=== PATIENT | female | born 1975 | race Caucasian/White ===

== ENCOUNTER 2017-09-24 22:33 | Emergency (ER) | payer BC, SELFPAY ==
[2017-09-24 22:34] VITALS: BP 140/84; PULSE 79; RESP 16; TEMP 36.6; O2SAT 98; BMI 95.7
--- NOTE | 2017-09-24 23:44 | EKG12_ITS ---
Test Reason : SOB Blood Pressure : / mmHG Vent. Rate : 089 BPM Atrial Rate : 089 BPM P-R Int : 150 ms QRS Dur : 072 ms QT Int : 366 ms P-R-T Axes : 044 040 017 degrees QTc Int : 445 ms Normal sinus rhythm Normal ECG Confirmed by KINGSTON WAGONER MD ([id number]), editor house organ KHURRAM LOPEZ ([id number] on 09/29/2017 2:24:51 PM Referred By: CORDELIA Confirmed By:KINGSTON WAGONER MD
--- NOTE | 2017-09-24 23:45 | ED.VISSUMM ---
- ER Visit Summary Date of Service: 09/24/17 Chief Complaint: Lightheaded, flushing History of Present Illness: The patient is a 42 F sudden lightheadedness and flushing of the face with ringing in the ears while reading a book this evening. No syncopal episodes. No recent illness or cough. No syncopal episodes. 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 Took an Imodium. No urinary symptoms. No diarrhea since 2. She did drink fluids throughout the day. Spouse states she was significantly flushed in the face and was sweaty. She denies any chest pains or palpitations. No heart racing. No previous similar symptoms in the past. History of IBS, asthma, GERD. Denies any abdominal pain. No nausea or vomiting. She does have heavy menstrual periods. No GI bleed symptoms. Denies alcohol, tobacco, or illicit drug use. Physical Examination: General: Alert and oriented ?3, no acute distress HEENT: Normocephalic, atraumatic. Moist mucosa membranes. TMs normal bilaterally. Neck: supple, nontender. Cardiovascular: Regular rate and rhythm, no murmurs Respiratory: Normal breath sounds, symmetric, no distress Abdomen: Soft, nontender, nondistended Extremities: Nontender, no edema, pulses intact ?4 Neuro: no focal neurological deficits. Test Results: EKG sinus rate of 89, no ST changes. Isolated T-wave inversion in leads III. QTc 445. Hemoglobin 13, potassium 3.5. Creatinine 0.91. HCG negative. UA leukocytes. Emergency Department Course and Treatment: Patient symptoms improving on the ED. EKG normal. Basic labs normal. HCG negative. UA with trace leukocytes. She is asymptomatic. Ambulated with no difficulties. During monitoring had a rash to the scalp lining in the forehead states is itchy. There is no trouble breathing or lip swelling. She is given Benadryl prior to discharge. Discussed near syncopal symptoms at this time. She continue oral hydration. She will monitor symptoms. There is no chest pains or palpitations. She will need to see her PCP for further testing if symptoms persist. Discuss of any worsening symptoms to return for reevaluation. Patient understands and agrees with plan. Treatment Plan: [] Disposition: Discharge Impression: 1. Near syncope 2. Dermatitis This note was generated with [employer] software. It may contain incorrect words, spelling, and punctuation that were not noted in review of the chart prior to signing ED Disposition - Plan for ED Patient: Disposition: Home or Assisted Living Chief Complaint: General Illness Diagnosis: Near syncope, Dermatitis Referrals: Nabil Rodgers III, MD [Primary Care Provider] - 3-5 Days Additional Instructions: Benadryl every 6 hours as needed for itching of rash
[2017-09-25 00:09] LABS: Red Blood Cells-Urine 0 SEEN /hpf (0-5); Squamous Epithelial Cells - UA 0 SEEN /hpf (5-10)
[2017-09-25 00:10] LABS: Absolute Lymphocyte Count 1.57 X10^3/ul (0.83-4.51); Basophil# 0.01 X10^3/uL; Basophil% 0.1 % (0-1); Eosinophil# 0.04 X10^3/uL; Eosinophils% 0.3 % (0-5); Hematocrit 38.8 % (37-47); Hemoglobin 13.1 g/dl (12.0-15.0); Lymphocyte # 1.57 X10^3/ul (4.0); Lymphocyte % 12.6 % (19-41); Mean Corp Hgb Conc 33.8 g/gl (32-36); Mean Corpuscular Hgb 29.8 pg (27.0-32.0); Mean Corpuscular Volume 88.4 fL (81-99); Mean Platelet Vol. 8.9 fl (6.2-12.0); Monocyte% 6.4 % (0-10); Neutrophil # 10.02 X10^3/uL (2.7-7.7); Neutrophil % 80.4 % (47-70); Platelet Count 255 K/mm3 (150-450); RBC Distribution Width CV 12.7 % (11.6-14.6); RBC Distribution Width SD 40.8 fl (35.1-43.9); Red Blood Count 4.39 M/mm3 (4.2-5.4); White Blood Count 12.5 K/mm3 (4.4-11.0)
[2017-09-25 00:11] LABS: Color, Urine Yellow (Yellow); Glucose, Dipstick Normal (Normal); Ketone-Dipstick Negative (Negative); Leukocyte Esterase-Dipstick 25 /ul (Negative); Nitrite-Dipstick Negative (Negative); Occult Blood-Urine Negative /ul (Negative); Protein-Dipstick 15 mg/dl (Negative); Urine Bilirubin Dipstick Negative (Negative); Urine Clarity Clear (Clear); Urine Urobilinogen Normal (Normal)
[2017-09-25 00:11] LABS: POSITIVE COUNT NO; POSITIVE DIFFERENTIAL NO; POSITIVE MORPHOLOGY NO
[2017-09-25 00:18] LABS: Anion Gap 7 (5-15); BUN 11 mg/dL (7-18); BUN/Creat Ratio 12.1 RATIO (10-20); Calcium,Total 8.3 mg/dL (8.5-10.1); Chloride 109 mmol/L (98-107); Creatinine, Serum 0.91 mg/dL (0.55-1.02); EST Glomerular Filtration Rate 72 mL/min (>60); Est Glom Filt Rate - Afr Amer 87 mL/min (>60); Estimated Creatinine Clearance 60.15 ml/min; Glucose 130 mg/dL (74-106); Potassium 3.5 mmol/L (3.5-5.1); Sodium Level 142 mmol/L (136-145)
[2017-09-25 00:23] LABS: Bacteria RARE /hpf (None Seen); Mucous, Urine 1+ /hpf (<or=2+); White Blood Cells 0-5 SEEN /hpf (0-5)
[2017-09-25 00:24] LABS: Internal QC Validated? YES +Cl - CLEAR BKGD; Pregnancy, Urine Negative Negative
[2017-09-25 01:15] VITALS: BP 123/78; PULSE 92; RESP 16; O2SAT 94
[2017-09-25 01:41] VITALS: BP 126/78; PULSE 94; RESP 17; O2SAT 95
[2017-09-25] MEDS: DiphenhydrAMINE 50 MG/ML Syringe 25 MG IV (01:52)
[2017-09-25 02:01] VITALS: BP 125/79; PULSE 90; RESP 17; O2SAT 95
== END 2017-09-25 02:29 | disposition home or self-care (01) ==
PROVIDERS: Emergency Provider Emergency Medicine; Family Provider Family Medicine; PCP Family Medicine
DX: R55 Syncope and collapse (principal); L30.9 Dermatitis, unspecified; K58.9 Irritable bowel syndrome, unspecified; J45.909 Unspecified asthma, uncomplicated; K21.9 Gastro-esophageal reflux disease without esophagitis
CPT/HCPCS: 80048; 81001; 81025; 85025; 93005; 96361; 96374; 99285; J7030; J7040; A4216

== ENCOUNTER → 2018-08-13 18:00 | Outpatient (CLI) | payer OTHER, SELFPAY ==
--- NOTE | 2018-08-13 18:05 | CT_ITS ---
STUDY: CT SOFT TISSUE NECK WITHOUT CONTRAST REASON FOR EXAM: Female, 42 years old. Dyspnea family history thyroid cancer RADIATION DOSAGE (If Supplied By Facility): CTDIvol = ( 21.98 ) mGy, DLP = ( 598.29 ) mGycm TECHNIQUE: The patient was scanned in a multi-detector CT scanner. High resolution transaxial imaging was performed without the administration of intravenous contrast material. Sagittal and coronal images were reconstructed. Individualized dose optimization techniques were used for this CT. COMPARISON: None. FINDINGS: Normal bilateral parotid glands. Normal bilateral mold maker plastic molds spaces. Normal bilateral parapharyngeal spaces. Normal bilateral carotid spaces. Bilateral hearing devices in the external auditory canals. Normal bilateral sublingual and submandibular glands and spaces. Normal visualized nasopharynx. Normal retropharyngeal space. Normal perivertebral space. Normal visualized bilateral faucial tonsils. The visualized tongue, tongue base and oropharynx are normal. There are a few nonspecific subcentimeter cervical lymph nodes. Normal epiglottis, bilateral vallecula and hypopharynx. The pre-epiglottic and paraglottic adipose spaces are normal. Normal visualized bilateral piriform sinuses, aryepiglottic folds, vocal cords, and arytenoid-cricoid articulations. Normal subglottic trachea. There is a low attenuating nodule in the anterior aspect of the right thyroid measuring 1.8 x 1.9 cm. There is a low attenuation measuring 9.3 mm. Normal visualized pulmonary apices. There is a cyst sphenoid mucosal retention cyst measuring 2.0 x 1.4 cm. There is multilevel spondylosis. No significant C4 C5 C6 and C7. There is multilevel posterior osteophyte formation. There is no significant neural foramina narrowing there is minimal central stenosis. CT/Soft Tissue Neck without Contr IMPRESSION: There are bilateral thyroid nodules demonstrated. There is a low attenuating nodule in the anterior aspect of the right thyroid measuring 1.8 x 1.9 cm. There is a low attenuation measuring 9.3 mm Recommend follow-up thyroid ultrasound and laboratory values. Degenerative changes cervical spine. Area of chronic appearing sphenoid sinus mucosal retention cyst. Electronically Signed: Lisa Sandy MD at 19:59 EST Tel , Service support ,
== END ==
PROVIDERS: Family Provider Family Medicine; PCP Family Medicine; Referring Provider Internal Medicine Pulmonary Disease; Visit Provider Internal Medicine Pulmonary Disease
DX: J38.3 Other diseases of vocal cords (principal); R13.10 Dysphagia, unspecified
CPT/HCPCS: 70490

== ENCOUNTER → 2018-10-13 | Outpatient (CLI) | payer OTHER, SELFPAY ==
--- NOTE | 2018-10-12 15:00 | ASPS_PTH ---
PATIENT: FLORENTINOSeptember LOC: [facility] U#:[id number] AGE/SX: 43/F ROOM: RE10/13/[address]: Dr. Harrison Rodgers MD : 1975 BED: DIS: 10/13/2018 SPEC #: [id number] RECD: 10/13/18 15:07 STATUS: LILLY JACKY #: [id number] AL: 10/12/18 15:[address]: Harrison Rodgers DEPT: CYTOLOGY RECD BY: Slade Alfaro ENTERED: 10/14/18 11:07 SP TYPE: ASPIRATION OTHR DR: Dr. Nabil Rodgers III, MD Tissues: A - Thyroid gland, NOS B - Thyroid gland, NOS Procedures: Special Stain Group II Cytology Other HEADER OPERATION: Bilateral thyroid FNA PRE-OP DIAGNOSIS: Bilateral thyroid nodules TISSUE SUBMITTED: A - Right thyroid slides x6, B - Left thyroid slides x6 DIAGNOSIS CYTOLOGY A. Right thyroid nodule, FNA (smears): Cellular smear consistent with benign follicular nodule. Adequate for evaluation. See comment. B. Left thyroid nodule, FNA (smears): Consistent with benign follicular nodule. Adequate for evaluation. SJ:rg 10/15/18 COMMENT A. The findings may represent adenomatoid nodule. Correlation with clinical, radiologic findings and appropriate follow up are necessary. CYTOLOGY STUDY Slides are reviewed. CYTOLOGY GROSS A - Received are six smears labeled with the patient's name and designated per the requisition as right thyroid. Submitted for staining. B - Received are six smears labeled with the patient's name and designated per the requisition as left thyroid. Submitted for staining. / 10/14/18 TC:5 CPT: 71938 x2
[2018-10-12 15:04] VITALS: BMI 95.7
== END | disposition home or self-care (01) ==
LOC: LABSPEC 15:15
PROVIDERS: Family Provider Family Medicine; PCP Family Medicine; Referring Provider Surgery; Visit Provider Surgery
DX: E04.2 Nontoxic multinodular goiter (principal)
CPT/HCPCS: 88161; 88313

== ENCOUNTER → 2019-10-24 15:36 | Outpatient (CLI) | payer OTHER, SELFPAY ==
[2018-10-12 15:04] VITALS: BMI 95.7
--- NOTE | 2019-10-24 15:38 | US_ITS ---
STUDY: THYROID ULTRASOUND REASON FOR EXAM: Female, 44 years old. NODULES TECHNIQUE: Ultrasound evaluation of the thyroid was performed with real-time and static van-scale imaging. COMPARISON: None. FINDINGS: RIGHT LOBE: The right lobe of the thyroid gland measures 5.7 x 2.0 x 2.4 cm. There is a homogeneous echotexture. Within the right thyroid lobe there are 2 hypoechoic nodules, largest seen within the lower pole measuring 1.7 x 1.7 x 1.5 cm with hypoechoic rim and central minimal cystic change. There is central and peripheral color flow with regular margins. LEFT LOBE: The left lobe of the thyroid gland measures 4.6 x 1.6 x 2.9 cm. There is a homogeneous echotexture. Several hyperechoic structure is demonstrated within the left thyroid lobe, largest measuring 1.8 x 1.4 x 1.8 cm. These reveal regular margins with subtle internal color flow. ISTHMUS: The isthmus measures 0.6 cm. Questionable nodule within the isthmus measuring 0.7 x 0.6 x 0.4 cm, partially cystic and regular margins. The regional lymph nodes are normal. US/Thyroid IMPRESSION: Bilateral thyroid lobe nodules as described above with morphology favoring benign process. Note to be made that benign versus malignant process cannot be adequately determined without microscopic evaluation for documentation of stability. If indicated, follow-up ultrasound in 6-12 months recommended to evaluate stability. Electronically Signed: Marie Redding MD at 3:27 EDT , Service support ,
== END ==
PROVIDERS: PCP Family Medicine; Visit Provider Surgery
DX: E04.2 Nontoxic multinodular goiter (principal)
CPT/HCPCS: 76536

== ENCOUNTER → 2019-11-09 15:49 | Outpatient (CLI) | payer OTHER, SELFPAY ==
[2019-11-09 14:23] VITALS: BMI 95.7
--- NOTE | 2019-11-09 15:00 | FLU_PTH ---
PATIENT: FLORENTINOSeptember LOC: [facility] U#:[id number] AGE/SX: 49/F ROOM: RE11/09/[address]: Dr. Harrison Rodgers MD : 1975 BED: DIS: SPEC #: [id number] RECD: 11/09/19 15:45 STATUS: LILLY JACKY #: [id number] AL: 11/09/19 15:[address]: Harrison Rodgers DEPT: CYTOLOGY RECD BY: Slade Alfaro ENTERED: 11/10/19 09:31 SP TYPE: Fluid OTHR DR: Dr. Nabil Rodgers III, MD Tissues: A - Thyroid gland, NOS B - Thyroid gland, NOS Procedures: Special Stain Group II Surgery Specimen Level IV Cytospin Fluid Cytology Other HEADER OPERATION: Ultrasound-guided fine needle aspiration left thyroid PRE-OP DIAGNOSIS: Multinodular goiter E04.2 TISSUE SUBMITTED: A - FNA left thyroid fluid for cytology, B - FNA left thyroid slides x4 DIAGNOSIS CYTOLOGY A. Left thyroid nodule fluid, ultrasound-guided FNA (cytospin and cellblock): Consistent with benign cyst contents. See cytology study and comment. B. Left thyroid nodule, ultrasound-guided FNA (smears): Consistent with benign follicular nodule. Adequate for evaluation. MARIKA:tia 11/11/19 COMMENT Correlation with clinical, radiologic findings and appropriate follow up are necessary. CYTOLOGY STUDY Slides are reviewed. A. The specimen predominantly consists of macrophages and a few benign follicular cells. Please make reference to previous specimen ([id number]) right thyroid nodule, FNA with diagnosis of cellular smear consistent with benign follicular nodule and left thyroid nodule, FNA with diagnosis of consistent with benign follicular nodule. CYTOLOGY GROSS A - Received is 0.25 ml of red cloudy fluid labeled with the patient's name and and designated per the requisition as left thyroid. Submitted for cytology preparation including cell block. B - Received are four smears labeled with the patient's name and designated per the requisition as left thyroid. Submitted for staining. / tia 11/10/19 TC:5 CPT: 43202, 29938, 69621
== END ==
PROVIDERS: PCP Family Medicine; Referring Provider Surgery; Visit Provider Surgery
DX: E04.2 Nontoxic multinodular goiter (principal)
CPT/HCPCS: 88108; 88161; 88305; 88313

== ENCOUNTER → 2020-01-11 16:54 | Outpatient (CLI) | payer OTHER, SELFPAY ==
[2019-11-09 14:23] VITALS: BMI 95.7
[2020-01-11 17:42] LABS: Absolute Lymphocyte Count 1.79 X10^3/uL (0.83-4.51); Absolute Neutrophil Count 3.9 X10^3/uL (2.0-7.7); Basophil# 0.03 X10^3/uL; Basophil% 0.5 % (0-1); Eosinophil# 0.12 X10^3/uL; Eosinophils% 1.9 % (0-5); Hematocrit 43.2 % (37-47); Hemoglobin 14.5 g/dL (12.0-15.0); Lymphocyte # 1.79 X10^3/ul (4.0); Lymphocyte % 27.8 % (19-41); Mean Corp Hgb Conc 33.6 g/dL (32-36); Mean Corpuscular Hgb 30.3 pg (27.0-32.0); Mean Corpuscular Volume 90.2 fL (81-99); Mean Platelet Vol. 9.6 fl (6.2-12.0); Monocyte% 9.3 % (0-10); NRBC Flagged by Analyzer 0 % (0-5); Neutrophil # 3.86 X10^3/uL (2.7-7.7); Platelet Count 326 K/mm3 (150-450); RBC Distribution Width CV 12.2 % (11.6-14.6); RBC Distribution Width SD 39.9 fl (35.1-43.9); Red Blood Count 4.79 M/mm3 (4.2-5.4); White Blood Count 6.4 K/mm3 (4.4-11.0)
[2020-01-11 18:10] LABS: ALB/GLOB Ratio 0.9 RATIO (0.9-2.4); AST(SGOT) 35 U/L (15-37); Alanine Aminotransfer ALT/SGPT 65 U/L (13-56); Albumin, Serum 3.5 g/dL (3.2-5.0); Alkaline Phosphatase 76 U/L (45-117); Anion Gap 4 (5-15); BUN 6 mg/dL (7-18); BUN/Creat Ratio 6.9 RATIO (10-20); Chloride 105 mmol/L (98-107); Creatinine, Serum 0.87 mg/dL (0.55-1.02); EST Glomerular Filtration Rate 75 mL/min (>60); Est Glom Filt Rate - Afr Amer 91 mL/min (>60); Globulin 3.9 g/dL (2.2-4.2); Glucose 88 mg/dL (74-106); Lipase 107 U/L (73-393); Potassium 3.6 mmol/L (3.5-5.1); Protein, Total 7.4 g/dL (6.4-8.2); Sodium Level 137 mmol/L (136-145)
== END ==
PROVIDERS: PCP Family Medicine; Referring Provider Registered Nurse; Visit Provider Registered Nurse
DX: R10.10 Upper abdominal pain, unspecified (principal)
CPT/HCPCS: 36415; 80053; 83690; 85025

== ENCOUNTER → 2020-01-11 | Outpatient (CLI) | payer OTHER, SELFPAY ==
[2019-11-09 14:23] VITALS: BMI 95.7
== END | disposition home or self-care (01) ==
LOC: LABSPEC 18:06
PROVIDERS: PCP Family Medicine; Referring Provider Registered Nurse; Visit Provider Registered Nurse
DX: Z20.828 Contact with and (suspected) exposure to other viral communicable diseases (principal)
CPT/HCPCS: 87635; 94799; U0003

== ENCOUNTER 2020-07-25 16:26 | Emergency (ER) | payer OTHER, SELFPAY ==
[2019-11-09 14:23] VITALS: BMI 95.7
[2020-07-25 16:26] VITALS: BP 144/92; PULSE 89; RESP 18; TEMP 36.7; O2SAT 98
[2020-07-25 16:27] VITALS: BP 144/92; PULSE 83; RESP 18; TEMP 36.7; O2SAT 98; BMI 41.1
--- NOTE | 2020-07-25 16:40 | EKG12_ITS ---
Test Reason : OTHER PAIN Blood Pressure : / mmHG Vent. Rate : 075 BPM Atrial Rate : 075 BPM P-R Int : 148 ms QRS Dur : 072 ms QT Int : 374 ms P-R-T Axes : 019 010 003 degrees QTc Int : 417 ms Normal sinus rhythm Normal ECG Confirmed by SAUL LEWIS, LILLIAN ([id number]), slot editor MADONNA ANTHONY ([id number]) on 07/27/2020 8:44:51 AM Referred By: NERI Confirmed By:OBDULIO HUGHES MD
--- NOTE | 2020-07-25 16:42 | ED.VIS.GEN ---
History of Present Illness Chief Complaint: Other, Pain/Inj Narrative: Patient presents after exposure to Covid, she has felt achy with some body chills for the past week although a week ago she tested negative for Covid. She had more myalgias today than usual and some subjective dyspnea but only when she wears a mask. No leg pain or calf pain no lower extremity edema. Patient does not have a pleuritic component. She has no fever or chills. She has no chest pain. Past medical history: No medical history she is a carrier for factor V Leiden. Medications: Reviewed Social history: Noncontributory Review of systems: All systems negative except as indicated General: Denies: Fever Eyes: Denies: Visual changes - bilaterally ENT: Denies: Rhinorrhea, Sore throat Cardiovascular: Denies: Chest pain Respiratory: Subjective dyspnea only when she wears a mask Gastrointestinal: Denies: Abdominal pain, Nausea, Vomiting Genitourinary: Denies: Dysuria Musculoskeletal: Myalgias for about a week Skin: Denies: Rash Neurological: Denies: Headache, no focal weakness Psych: Reports: negative Hematologic: Denies: Easy bruising, Easy bleeding Past Medical History - Allergies and Home Meds Allergies/Adverse Reactions: Allergies naproxen [From Naprosyn] Allergy (Intermediate, Verified 10/26/19 13:54) hives sulfamethoxazole [From Bactrim] Allergy (Verified 10/26/19 13:54) Rash trimethoprim [From Bactrim] Allergy (Verified 10/26/19 13:54) Rash Primary Care Physician: Nabil Rodgers III, MD [Primary Care Provider] - Smoking Status: Former smoker Physical Exam Vital Signs/Narrative: Vital Signs Temp Pulse Resp BP Pulse Ox 07/25/20 16:27 98.0 F 83 18 144/92 H 98 07/25/20 16:26 98.0 F 89 18 144/92 H 98 Diagnostic/Tx/Re-eval Chest X-Ray - ED: 1 View, Read by ED Physician, Normal, Heart, Lungs, Mediastinum - Rhythm Strip Rhythm Strip: Sinus Rhythm Rate: 75 Ectopy: None - EKG Initial EKG Interpretation: - - Normal sinus rhythm with a rate of 75. Normal VA and QTc intervals. No ischemic changes. Interpreted by emergency doctor - Medical Decision Making Patient has an unremarkable emergency department work-up. She has a normal EKG there is no tachycardia or right heart strain she has no DVT or PE risk factors or signs or symptoms of DVT or PE. She is not tachycardic. She will get a Covid test however it will not be back today. Chest x-ray is unremarkable as read by me and the radiologist with the possibility of atelectasis. Regardless the patient appears well she has normal vitals and will be discharged in stable condition. I tested her for Covid again however I told her that she needs to quarantine over the next few days until she gets her results back. ED Disposition - Plan for ED Patient: Disposition: Psychiatric Hospital or Unit Diagnosis: Myalgia Referrals: Nabil Rodgers III, MD [Primary Care Provider] - 2 Days Additional Instructions: You were tested for Covid today you must quarantine yourself until you get the test results back otherwise if you feel worse, if you have worsening in your breathing, any kind of chest pain any fever or chills or any further weakness return to the emergency department.
--- NOTE | 2020-07-25 16:50 | RAD_ITS ---
STUDY: X-RAY CHEST REASON FOR EXAM: Female, 44 years old. chest pain and body aches TECHNIQUE: Single frontal view of the chest. COMPARISON: None. FINDINGS: Possible subsegmental atelectasis versus infiltrate right base. Lungs otherwise clear. There is no demonstrated pleural abnormality. Normal size heart. Normal mediastinum and yesi. Normal visualized pulmonary arteries. Normal visualized aortic arch and descending thoracic aorta. Normal visualized thoracic spine. Normal visualized ribs, clavicles, and shoulders. There is no demonstrated abnormality of the visualized soft tissue structures of the upper abdomen. RAD/Chest 1 View (Portable) IMPRESSION: Possible subsegmental atelectasis versus infiltrate right base Electronically Signed: Fred Son MD at 17:05 EST , Service support ,
== END 2020-07-25 18:01 | disposition home or self-care (01) ==
LOC: ED 17:29
PROVIDERS: Emergency Provider Emergency Medicine; PCP Family Medicine
DX: M79.10 Myalgia, unspecified site (principal); Z20.822 Contact with and (suspected) exposure to COVID-19; R06.00 Dyspnea, unspecified; Z79.899 Other long term (current) drug therapy; Z87.891 Personal history of nicotine dependence
CPT/HCPCS: 71045; 87635; 93005; 99282; U0005; U0003

== ENCOUNTER 2022-05-01 10:11 | Day surgery (SDC) | payer OTHER, SELFPAY ==
--- NOTE | 2022-05-01 | ESO_PTH ---
PATIENT: FLORENTINOSeptember LOC: EN U#:[id number] AGE/SX: 46/F ROOM: RE05/01/[address]: Dr. Robbie Croft DO : 1975 BED: DIS: 05/01/2022 SPEC #: [id number] RECD: 05/01/22 14:11 STATUS: LILLY JACKY #: [id number] AL: 05/01/22 00:[address]: Robbie Croft DEPT: SURGICAL PATHOLOGY RECD BY: Tal Pace ENTERED: 05/02/22 10:06 SP TYPE: ALBERTO RUIZ DR: Dr. Jimmie Hinson MD Tissues: Esophagus, NOS Procedures: Special Stain Group II Surgery Specimen Level IV Alcian Blue/PAS (control) HEADER OPERATION: Colonoscopy, EGD ([facility] [place]) PRE-OP DIAGNOSIS: GERD TISSUE SUBMITTED: Distal esophagus biopsy MICROSCOPIC DIAGNOSIS Distal esophagus, biopsy: Gastroesophageal junctional mucosa with chronic inflammation. No evidence of goblet cell metaplasia. See comment. AM:tia 05/05/2022 COMMENT Alcian blue/PAS stain with matched control supports the above diagnosis. MICROSCOPIC DESCRIPTION Slides are reviewed. GROSS DESCRIPTION Received in fixative is one container labeled with the patient's name and designated distal esophageal biopsy. The specimen consists of multiple irregular fragments of light lyons soft tissue that in aggregate measure 0.8 x 0.3 x 0.1 cm. The specimen is totally submitted in one cassette. / SJ:tia 05/02/2022 TC:3 CPT: 35108, 29632
[2022-05-01 10:48] VITALS: BP 139/90; PULSE 81; RESP 16; TEMP 36.4; O2SAT 100; BMI 41.6
[2022-05-01] MEDS: Lactated Ringers 1,000 ML 15 ML IV (10:52)
--- NOTE | 2022-05-01 11:23 | PCM.HP.BLA ---
History and Physical Date of Admission: 05/01/22 ?46 F who presents to the office today for chronic cough which may be due to reflux, referred for EGD. Persistent cough for about a year. Cough worsened with COVID in Summer 2020. She takes omeprazole 40 mg daily. PCP added famotidine 20 mg in early January, it definitely helped the cough, went from deep bark to occas dry cough that occurs throughout the day. Frequent throat irritation and hoarse voice. Has taken omeprazole for years, it effectively controls heartburn, uses to get retrosternal burn before she took PPI. No prior EGD. Thinks she had colonoscopy years ago, can't recall why. Started allergy shots in 05/2021, follows with [facility] for that. 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 She has been doing intermittent fasting since 11/2021, doesn't eat during the day, has lost inches. 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 Her mother recently had surgery for very large hiatal hernia ROS Const Constitutional: Positive for fatigue; No fever(s), headache(s), weight change, sleep problems, abnormal sleep pattern or change in appetite ENT ENT: No headache(s), difficulty swallowing, hoarseness or sore throat Resp Respiratory: No cough, hemoptysis or shortness of breath Cardio Cardiology: No chest pain at rest or generalized swelling Gastro GI: Positive for bloating; No abdominal pain, belching, change in bowel habits, change in stool character, coffee ground emesis, constipation, cramping, diarrhea, heartburn, difficulty swallowing, feeling full early, excessive flatus, incontinent of stools, Vomiting blood/hematemesis, Blood in stool, loose stools, Black,tarry stools, nausea/dyspepsia, pain with swallowing or vomiting Musc Musculoskeletal: Positive for joint pain, back pain, muscle cramps, numbness, stiffness and tingling; No joint swelling Skin Skin: No itchy eyes or rash Neuro Neurology: Positive for numbness and tingling; No behavioral changes, confusion or headache(s) Psych Psychiatric: No abnormal sleep pattern, No anxiety, No behavioral changes, No change in appetite, No confusion and No depression Endo Endocrine: Positive for fatigue; No cold intolerance, heat intolerance, increased thirst/drinking or weight change Aller/Imm Allergy/Immunologic: No food intolerance or itchy eyes Natanael/Lymp Hematologic/Lymphatic: No easy bleeding, easy bruising or enlarged lymph nodes Exam Const General: cooperative and comfortable Nutritional Appearance: obese Orientation: alert, awake and oriented x3 HENMT Head: normal to inspection Eyes General: appearance normal, both eyes and all related structures Neck Neck: normal visual inspection Resp Effort & Inspection: normal respiratory effort GI Inspection: obesity Skin General: no jaundice Neuro Speech: speech normal Gait: normal gait Quality Reporting Tobacco Screening ([facility] 138) Smoking Status: Former smoker Assessment and Plan Assessment and Plan (1) Chronic cough: ?Status:?Chronic ?Plan: Continue PPI and [id number] Will schedule her for EGD to eval for esophagitis, Smith's, hiatal hernia, gastritis, PUD Recommend screening colonoscopy even with negative Cologuard since Cologuard can't test for polyps, but she declines at this time f/u 2 wks after EGD to discuss results (2) GERD (gastroesophageal reflux disease): ?Status:?Acute ?Plan: as above I have examined the patient and the H&P has been reviewed. There are no clinical changes since date of exam.
[2022-05-01 12:00] VITALS: BP 107/78; BP 139/90; PULSE 93; RESP 16; TEMP 36.3; O2SAT 100
[2022-05-01 12:05] VITALS: BP 103/68; BP 139/90; PULSE 76; RESP 16; O2SAT 100
--- NOTE | 2022-05-01 12:07 | OP.EGD_ITS ---
Patient Name: Zahra Pierce Procedure Date: 05/01/2022 11:26 AM Date of : 1975 Age: 46 Procedure: Upper GI endoscopy Indications: Functional Dyspepsia, Heartburn Providers: Robbie Croft DO Medicines: Monitored Anesthesia Care Patient Profile: This is a 46 year old female. Refer to note in patient chart for documentation of history and physical. Patient has symptoms of chronic dyspepsia and chronic heartburn. Complications: No immediate complications. Procedure: Pre-Anesthesia Assessment: - Prior to the procedure, a History and Physical was performed, and patient medications and allergies were reviewed. The patient is competent. The risks and benefits of the procedure and the sedation options and risks were discussed with the patient. All questions were answered and informed consent was obtained. Patient identification and proposed procedure were verified by the physician in the pre-procedure area. Mental Status Examination: alert and oriented. Airway Examination: normal oropharyngeal airway and neck mobility. Respiratory Examination: clear to auscultation. CV Examination: normal. Prophylactic Antibiotics: The patient does not require prophylactic antibiotics. Prior Anticoagulants: The patient has taken no previous anticoagulant or antiplatelet agents. ASA Grade Assessment: II - A patient with mild systemic disease. After reviewing the risks and benefits, the patient was deemed in satisfactory condition to undergo the procedure. The anesthesia plan was to use monitored anesthesia care (MAC). Immediately prior to administration of medications, the patient was re-assessed for adequacy to receive sedatives. The heart rate, respiratory rate, oxygen saturations, blood pressure, adequacy of pulmonary ventilation, and response to care were monitored throughout the procedure. The physical status of the patient was re-assessed after the procedure. After obtaining informed consent, the endoscope was passed under direct vision. Throughout the procedure, the patient's blood pressure, pulse, and oxygen saturations were monitored continuously. The pediatric colonoscope was introduced through the mouth, and advanced to the second part of duodenum. The upper GI endoscopy was accomplished without difficulty. The patient tolerated the procedure well. Scope In: 11:35:10 AM Scope Out: 11:41:32 AM Total Procedure Duration Time 0 hours 6 minutes 22 seconds Findings: The Z-line was irregular and was found 37 cm from the incisors. Biopsies were taken with a cold forceps for histology. Verification of patient identification for the specimen was done. Estimated blood loss was minimal. A small hiatal hernia was present. Multiple 1 to 2 mm semi-sessile polyps with no bleeding and no stigmata of recent bleeding were found in the gastric fundus, in the gastric body and on the greater curvature of the stomach. No gross lesions were noted in the second portion of the duodenum. Impression: - Z-line irregular, 37 cm from the incisors. Biopsied. - Small hiatal hernia. - Multiple gastric polyps. - No gross lesions in the second portion of the duodenum. Recommendation: - Discharge patient to home (ambulatory). - Resume previous diet. - Continue present medications. - Await pathology results. - Check a gastrin level to determine if the gastric polyps are from hypergastrinemia Procedure Code(s): --- Professional --- 49919, Esophagogastroduodenoscopy, flexible, transoral; with biopsy, single or multiple CPT copyright 2017 [employer]. All rights reserved. The codes documented in this report are preliminary and upon theater technician review may be revised to meet current compliance requirements. Robbie Croft DO 05/01/2022 12:07:30 PM This report has been signed electronically. Number of Addenda: 0 Note Initiated On: 05/01/2022 11:26 AM
--- NOTE | 2022-05-01 12:08 | OP.CCLET_ITS ---
05/01/2022 Jimmie Hinson Re : Upper GI endoscopy procedure for September Kari Hinson This procedure was performed on April. My impressions and recommendations are as follows: Impressions : - Z-line irregular, 37 cm from the incisors. Biopsied. - Small hiatal hernia. - Multiple gastric polyps. - No gross lesions in the second portion of the duodenum. Recommendations : - Discharge patient to home (ambulatory). - Resume previous diet. - Continue present medications. - Await pathology results. - Check a gastrin level to determine if the gastric polyps are from hypergastrinemia My findings are described in the full procedure note, which is enclosed. If I can be of further assistance, please feel free to contact me at . Sincerely, Robbie Friend, 05/01/2022 12:07:30 PM This report has been signed electronically.
[2022-05-01 12:10] VITALS: BP 108/71; BP 139/90; PULSE 75; RESP 16; O2SAT 100
--- NOTE | 2022-05-01 12:10 | OP.CCLET_ITS ---
05/01/2022 Jimmie Hinson Re : Colonoscopy procedure for September Kari Garsia Sravan This procedure was performed on April. My impressions and recommendations are as follows: Impressions : - The entire examined colon is normal. - No specimens collected. Recommendations : - Discharge patient to home. - Resume previous diet. - Continue present medications. - Await pathology results. - Repeat colonoscopy in 5 years for screening purposes. My findings are described in the full procedure note, which is enclosed. If I can be of further assistance, please feel free to contact me at . Sincerely, Robbie Croft, 05/01/2022 12:09:17 PM This report has been signed electronically.
--- NOTE | 2022-05-01 12:10 | OP.COLON_ITS ---
Patient Name: Zahra Pierce Procedure Date: 05/01/2022 11:41 AM Date of : 1975 Age: 46 Procedure: Colonoscopy Indications: Screening for colorectal malignant neoplasm, This is the patient's first colonoscopy Providers: Robbie Croft DO Medicines: Monitored Anesthesia Care Patient Profile: This is a 46 year old female. Refer to note in patient chart for documentation of history and physical. Patient has symptoms of chronic dyspepsia and chronic heartburn. Last Colonoscopy: none. The patient's first colonoscopy is today. Complications: No immediate complications. Procedure: Pre-Anesthesia Assessment: - Prior to the procedure, a History and Physical was performed, and patient medications and allergies were reviewed. The patient is competent. The risks and benefits of the procedure and the sedation options and risks were discussed with the patient. All questions were answered and informed consent was obtained. Patient identification and proposed procedure were verified by the physician in the pre-procedure area. Mental Status Examination: alert and oriented. Airway Examination: normal oropharyngeal airway and neck mobility. Respiratory Examination: clear to auscultation. CV Examination: normal. Prophylactic Antibiotics: The patient does not require prophylactic antibiotics. Prior Anticoagulants: The patient has taken no previous anticoagulant or antiplatelet agents. ASA Grade Assessment: II - A patient with mild systemic disease. After reviewing the risks and benefits, the patient was deemed in satisfactory condition to undergo the procedure. The anesthesia plan was to use monitored anesthesia care (MAC). Immediately prior to administration of medications, the patient was re-assessed for adequacy to receive sedatives. The heart rate, respiratory rate, oxygen saturations, blood pressure, adequacy of pulmonary ventilation, and response to care were monitored throughout the procedure. The physical status of the patient was re-assessed after the procedure. After I obtained informed consent, the scope was passed under direct vision. Throughout the procedure, the patient's blood pressure, pulse, and oxygen saturations were monitored continuously. The pediatric colonoscope was introduced through the anus and advanced to the terminal ileum. The colonoscopy was performed without difficulty. The patient tolerated the procedure well. The quality of the bowel preparation was adequate. Scope In: 11:44:00 AM Scope Withdrawal Time 0 hours 8 minutes 46 seconds Scope Out: 11:56:13 AM Total Procedure Duration Time 0 hours 12 minutes 13 seconds Findings: The perianal and digital rectal examinations were normal. The colon (entire examined portion) appeared normal. No additional abnormalities were found on retroflexion. Impression: - The entire examined colon is normal. - No specimens collected. Recommendation: - Discharge patient to home. - Resume previous diet. - Continue present medications. - Await pathology results. - Repeat colonoscopy in 5 years for screening purposes. Procedure Code(s): --- Professional --- G0121, Colorectal cancer screening; colonoscopy on individual not meeting criteria for high risk CPT copyright 2017 [employer]. All rights reserved. The codes documented in this report are preliminary and upon medical records coder review may be revised to meet current compliance requirements. Robbie Croft DO 05/01/2022 12:09:17 PM This report has been signed electronically. Number of Addenda: 0 Note Initiated On: 05/01/2022 11:41 AM
[2022-05-01 12:15] VITALS: BP 105/67; BP 139/90; PULSE 73; RESP 16; TEMP 36.2; O2SAT 100
[2022-05-01 12:43] VITALS: BP 139/90
== END 2022-05-01 12:55 | disposition home or self-care (01) ==
LOC: EN 10:21 → AC 10:22
PROVIDERS: PCP Family Medicine; Referring Provider Family Medicine; Visit Provider Internal Medicine Gastroenterology
PROC: 0DJD8ZZ Inspection of Lower Intestinal Tract, Via Natural or Artificial Opening Endoscopic (ICD-10-PCS; CPT 45378; principal; 2022-05-01 11:10)
DX: Z12.11 Encounter for screening for malignant neoplasm of colon (principal); K21.00 Gastro-esophageal reflux disease with esophagitis, without bleeding; K44.9 Diaphragmatic hernia without obstruction or gangrene; R05.3 Chronic cough; K31.7 Polyp of stomach and duodenum; J45.909 Unspecified asthma, uncomplicated; Z79.899 Other long term (current) drug therapy; Z87.891 Personal history of nicotine dependence
CPT/HCPCS: 45378; 43239; 88305; 88313; J7120; J2405

== ENCOUNTER → 2022-05-07 | Outpatient (CLI) | payer OTHER, SELFPAY ==
[2022-05-11 11:40] LABS: Gastrin, Serum 1385 pg/mL (0-115)
== END | disposition home or self-care (01) ==
LOC: LAB 10:39
PROVIDERS: PCP Family Medicine; Visit Provider Internal Medicine Gastroenterology
DX: K21.9 Gastro-esophageal reflux disease without esophagitis (principal)
CPT/HCPCS: 36415; 82941

== ENCOUNTER → 2022-05-13 | Outpatient (CLI) | payer OTHER, SELFPAY ==
[2022-05-15 20:52] LABS: Anti-Parietal Cell AB, QN 1.7 Units (0.0-20.0)
[2022-05-16 10:15] LABS: H. PYLORI STOOL AG Negative (Negative)
== END | disposition home or self-care (01) ==
PROVIDERS: PCP Family Medicine; Referring Provider Nurse Practitioner Adult Health; Visit Provider Nurse Practitioner Adult Health
DX: K31.7 Polyp of stomach and duodenum (principal); E16.4 Increased secretion of gastrin
CPT/HCPCS: 36415; 83516; 86340; 87338

== ENCOUNTER → 2022-06-10 | Outpatient (CLI) | payer OTHER, SELFPAY ==
[2022-06-10 13:59] LABS: Erythrocyte Sedimentation Rate 6 mm/hr (0-30)
[2022-06-10 14:02] LABS: Absolute Lymphocyte Count 2.08 X10^3/uL (0.83-4.51); Absolute Neutrophil Count 3.8 X10^3/uL (2.0-7.7); Basophil# 0.04 X10^3/uL; Basophil% 0.6 % (0-1); Eosinophil# 0.47 X10^3/uL; Eosinophils% 6.7 % (0-5); Hematocrit 41.8 % (37-47); Hemoglobin 13.9 g/dL (12.0-15.0); Lymphocyte # 2.08 X10^3/ul (0.83-4.51); Lymphocyte % 29.7 % (19-41); Mean Corp Hgb Conc 33.3 g/dL (32-36); Mean Corpuscular Hgb 30.1 pg (27.0-32.0); Mean Corpuscular Volume 90.5 fL (81-99); Mean Platelet Vol. 9.2 fl (6.2-12.0); Monocyte# 0.54 X10^3/uL; Monocyte% 7.7 % (0-10); NRBC Flagged by Analyzer 0 % (0-5); Neutrophil # 3.84 X10^3/uL (2.7-7.7); Neutrophil % 54.9 % (47-70); Platelet Count 308 K/mm3 (150-450); RBC Distribution Width CV 13.1 % (11.6-14.6); RBC Distribution Width SD 43.2 fl (35.1-43.9); Red Blood Count 4.62 M/mm3 (4.2-5.4)
[2022-06-10 14:14] LABS: ALB/GLOB Ratio 0.8 RATIO (0.9-2.4); AST(SGOT) 9 U/L (15-37); Alanine Aminotransfer ALT/SGPT 19 U/L (13-56); Albumin, Serum 3.1 g/dL (3.2-5.0); Alkaline Phosphatase 53 U/L (45-117); Anion Gap 5 (5-15); BUN 14 mg/dL (7-18); BUN/Creat Ratio 17.5 RATIO (10-20); CRP 7.24 mg/L (0.0-3.0); Calcium,Total 9.3 mg/dL (8.5-10.1); Chloride 103 mmol/L (98-107); EST Glomerular Filtration Rate 82 mL/min (>60); Est Glom Filt Rate - Afr Amer 99 mL/min (>60); Globulin 3.8 g/dL (2.2-4.2); Glucose 99 mg/dL (74-106); Potassium 4.2 mmol/L (3.5-5.1); Protein, Total 6.9 g/dL (6.4-8.2); Sodium Level 137 mmol/L (136-145)
[2022-06-12 14:09] LABS: Anti-Centromere B Ab <0.2 AI (0.0-0.9); Anti-Chromatin <0.2 AI (0.0-0.9); Anti-Jo <0.2 AI (0.0-0.9); Anti-Scleroderma-70 AB <0.2 AI (0.0-0.9); RNP Ab <0.2 AI (0.0-0.9); SJOGREN'S Anti-SS-A test < 0.2 AI (0.0-0.9); SJOGREN'S Anti-SS-B test < 0.2 AI (0.0-0.9); Smith Ab <0.2 AI (0.0-0.9)
[2022-06-12 16:08] LABS: Cytoplasmic Ab (C-ANCA) <1:20 titer (Neg:<1:20); Endomysial Antibody IgA Negative (Negative); Immunoglobulin A 140 mg/dL (87-352)
[2022-06-12 21:04] LABS: Anti-dsDNA Ab 1 IU/mL (0-9)
[2022-06-12 21:07] LABS: Perinuclear Ab (P-ANCA) <1:20 titer (Neg:<1:20); t-Transglutaminase IgA <2 U/mL (0-3)
== END | disposition home or self-care (01) ==
LOC: LAB 12:21
PROVIDERS: PCP Family Medicine; Referring Provider Nurse Practitioner Adult Health; Visit Provider Nurse Practitioner Adult Health
DX: R05.3 Chronic cough (principal); K21.9 Gastro-esophageal reflux disease without esophagitis
CPT/HCPCS: 36415; 80053; 82784; 83516; 85025; 85652; 86140; 86225; 86235; 86255; 86256

== ENCOUNTER → 2022-06-27 | Outpatient (CLI) | payer OTHER, SELFPAY ==
--- NOTE | 2022-06-27 10:53 | NM_ITS ---
CLINICAL: 46-year-old female with history of refractory acid reflux disease. SEMI-SOLID PHASE 99m Tc SULFUR COLLOID GASTRIC EMPTYING STUDY COMPARISON: None available FINDINGS: The patient was administered 1.0 mCi of 99m Tc sulfur colloid mixed with oatmeal and consumed per os. Image acquisitions in the anterior-posterior projections were obtained for 60 minutes. There is prompt visualization of the stomach. There is no gastroesophageal reflux identified. The T ? linear fit was calculated to be 46.98 minutes, (Normal: 12-56 minutes). NM/Gastric Emptying Study IMPRESSION: 1. NORMAL 99m Tc sulfur colloid semi-solid phase (oatmeal) gastric emptying imaging examination. A. There is normal and preserved semi-solid phase gastric emptying compared to normal controls. (Aditya et al, J Nucl Med Tech 38: 186, 2010). Electronically Signed: Levon Burnett, at 11:34 EST ,
== END | disposition home or self-care (01) ==
PROVIDERS: PCP Family Medicine; Visit Provider Nurse Practitioner Adult Health
DX: K21.9 Gastro-esophageal reflux disease without esophagitis (principal); R05.3 Chronic cough
CPT/HCPCS: 78264; A9541

== ENCOUNTER → 2022-07-08 | Outpatient (CLI) | payer OTHER, SELFPAY ==
--- NOTE | 2022-07-08 16:51 | US_ITS ---
STUDY: THYROID ULTRASOUND REASON FOR EXAM: Female, 46 years old. Multiple thyroid nodules. TECHNIQUE: Ultrasound evaluation of the thyroid was performed with real-time and static van-scale imaging. This study is limited due to the low positioning of the thyroid near the sternal notch. COMPARISON: October 24, 2019. FINDINGS: RIGHT LOBE: The right lobe of the thyroid gland measures 5.0 x 2.4 x 2.0 cm. There is a homogeneous echotexture. In the upper pole there is a 0.4 x 0.3 x 0.2 cm cyst in the lower pole there is a 1.9 x 1.9 x 1.7 cm heterogenous predominantly solid isocolon mass with well-defined margins. This is wider than its is tall. Also in the lower pole is a heterogenous solid nodule measuring 1.1 x 1.5 x 1.8 cm normal vascularity and Doppler imaging. LEFT LOBE: The left lobe of the thyroid gland measures 4.3 x 1.8 x 2.1 cm. There is a homogeneous echotexture. In the lower pole there is a 2.1 x 1.7 x 2.5 cm ill-defined mixed solid and cystic nodule. ISTHMUS: The isthmus measures 0.7 cm. There is a 0.8 x 0.6 x 0.3 cm predominantly cystic nodule. The regional lymph nodes are normal. US/Thyroid IMPRESSION: 1. Stable appearing thyroid. 2. The larger solid nodule in the right thyroid is mildly suspicious, TR 3, using TI-RADS categorization. Follow-up ultrasound at 2 and 4 years. The adjacent heterogenous nodule considered moderately suspicious, TR 4. Recommended follow-up ultrasound at one, 2 and 4 years. A small cyst is considered benign and requires no follow-up. 3. The nodule in the lower pole of the left thyroid is considered mildly suspicious, TR 4. 3. Follow-up ultrasound is recommended to him for years. Electronically Signed: Elmer Zafar DO at 20:14 EST ,
== END | disposition home or self-care (01) ==
PROVIDERS: PCP Family Medicine; Referring Provider Surgery; Visit Provider Surgery
DX: E04.2 Nontoxic multinodular goiter (principal)
CPT/HCPCS: 76536

== ENCOUNTER → 2022-07-18 | Outpatient (CLI) | payer OTHER, SELFPAY ==
--- NOTE | 2022-07-18 12:30 | ASPS_PTH ---
PATIENT: FLORENTINOSeptember LOC: [facility] U#:[id number] AGE/SX: 46/F ROOM: RE07/18/[address]: Dr. Harrison Rodgers MD : 1975 BED: DIS: 07/18/2022 SPEC #: [id number] RECD: 07/18/22 12:30 STATUS: LILLY JACKY #: [id number] AL: 07/18/22 12:[address]: Harrison Rodgers DEPT: CYTOLOGY RECD BY: Lolita Santana ENTERED: 07/21/22 11:46 SP TYPE: ASPIRATION OTHR DR: Dr. Jimmie Hinson MD Tissues: A - Thyroid gland, NOS B - Thyroid gland, NOS Procedures: Special Stain Group II Cytology Other HEADER OPERATION: Bilateral thyroid fine needle aspiration PRE-OP DIAGNOSIS: Multiple thyroid nodules TISSUE SUBMITTED: A ? Right lower pole thyroid nodule x6 slides, B ? Left lower pole thyroid nodule x6 slides DIAGNOSIS CYTOLOGY A. Right lower pole thyroid nodule, fine needle aspiration (smears): Consistent with benign follicular nodule (Ettrick Category II). Adequate for evaluation. See comment. B. Left lower pole thyroid nodule, fine needle aspiration (smears): Consistent with benign follicular nodule (Ettrick Category II). Adequate for evaluation. See comment. SJ:rg 07/22/2022 COMMENT A & B. The smears are cellular. The findings may represent adenomatoid nodule. Per recommendations and a clinician-approved plan (a call was made to the referring doctor about the recommendation), genomic testing (Afirma) has been submitted. Results will be reported as an addendum and faxed to clinician. Please make reference to previous specimens ([id number]) right thyroid nodule, FNA with diagnosis of ?cellular smear consistent with benign follicular nodule? and left thyroid nodule, FNA with diagnosis of ?consistent with benign follicular nodule? and ([id number]) left thyroid nodule, ultrasound-guided FNA with diagnosis of ?consistent with benign follicular nodule.? Correlation with clinical, radiologic findings and appropriate follow up are necessary. CYTOLOGY STUDY Slides are reviewed. CYTOLOGY GROSS A - Received are six smears labeled with the patient's name and designated per the requisition as right lower pole thyroid nodule. Submitted for staining. B - Received are six smears labeled with the patient's name and designated per the requisition as left lower pole thyroid nodule. Submitted for staining. / rg 07/21/2022 TC:5 CPT: 93991 x2 ADDENDUM ADDENDUM ADDENDUM ADDENDUM ADDENDUM ADDENDUM ADDENDUM ADDENDUM ADDENDUM ADDENDUM ADDENDUM ADDENDUM 10/13/2022 15:35 ADDENDUM 10/13/2022 15:35 ADDENDUM 10/13/2022 15:35 ADDENDUM 10/13/2022 15:35 ADDENDUM 10/13/2022 15:35 AFIRMA RESULTS REPORT Nodule A, lower right thyroid: RESULTS INTERPRETATION: The result of this 1.8 cm nodule A is Afirma GSC benign, which suggests a low risk of cancer at approximately 4%. Nodule B, lower left thyroid: RESULTS INTERPRETATION: The result of this 2.5 cm nodule B is Afirma GSC benign, which suggests a low risk of cancer at approximately 4%. Please see complete report in e-chart or EMR
== END | disposition home or self-care (01) ==
LOC: LABSPEC 15:59
PROVIDERS: PCP Family Medicine; Referring Provider Surgery; Visit Provider Surgery
DX: E04.2 Nontoxic multinodular goiter (principal)
CPT/HCPCS: 88161; 88313

== ENCOUNTER → 2022-07-25 | Outpatient (CLI) | payer OTHER, SELFPAY ==
[2022-07-28 20:23] LABS: Gastrin, Serum 60 pg/mL (0-115)
== END | disposition home or self-care (01) ==
LOC: LAB 10:41
PROVIDERS: PCP Family Medicine; Referring Provider Nurse Practitioner Adult Health; Visit Provider Nurse Practitioner Adult Health
DX: E16.4 Increased secretion of gastrin (principal)
CPT/HCPCS: 36415; 82941

== ENCOUNTER → 2022-08-01 | Outpatient (CLI) | payer OTHER, SELFPAY ==
[2022-08-01 17:20] LABS: CRP 3.88 mg/L (0.0-3.0)
== END | disposition home or self-care (01) ==
LOC: LAB 15:48
PROVIDERS: PCP Family Medicine; Referring Provider Nurse Practitioner Adult Health; Visit Provider Nurse Practitioner Adult Health
DX: R79.82 Elevated C-reactive protein (CRP) (principal)
CPT/HCPCS: 36415; 86140

== ENCOUNTER 2022-12-26 16:35 | Emergency (ER) | payer OTHER, SELFPAY ==
[2022-12-26 16:36] VITALS: BP 147/89; PULSE 87; RESP 16; TEMP 36.4; O2SAT 99; BMI 43.6
--- NOTE | 2022-12-26 17:26 | RAD_ITS ---
STUDY: X-RAY - RIGHT FOOT CLINICAL: Female, 47 years old. pain TECHNIQUE: 3 view(s) of the foot. COMPARISON: None. FINDINGS: Normal talus, calcaneus, and tarsal bones. Normal visualized subtalar, talonavicular, calcaneocuboid, tarsal and tarsometatarsal articulations. Normal metatarsi. There has been previous bunionectomy of the head of the first metatarsal. There is mild hallux valgus. Normal tibial and fibular sesamoid bones. Normal interphalangeal joint of the great toe. Normal phalanges of the great toe. Normal second through fifth metatarsophalangeal joints. Normal interphalangeal joints and phalanges of the lesser toes. The soft tissue structures are unremarkable. There is no demonstrated fracture. RAD/Foot min 3 Views IMPRESSION: No acute fracture or dislocation. Postsurgical changes. Electronically Signed: Hardik Cm MD at 18:06 EDT ,
--- NOTE | 2022-12-26 18:50 | US_ITS ---
ACR Level 3 findings have been noted. An addendum which confirms receipt of the report will follow. STUDY: VENOUS DOPPLER ULTRASOUND - BILATERAL LOWER EXTREMITIES REASON FOR EXAM: Female, 47 years old. -- PAIN TECHNIQUE: Ultrasound evaluation of the deep vein system to include rodgers-scale imaging and compression was performed. Rodgers-scale imaging and Doppler sonographic evaluation, including duplex spectral analysis and qualitative color flow sonography, was performed. COMPARISON: None. FINDINGS: RIGHT LEG Common Femoral Vein: Normal compression, spontaneity and augmentation. Normal color Doppler. Common Femoral Vein/Greater Saphenous Junction: Normal compression, spontaneity and augmentation. Normal color Doppler. Femoral Proximal: Normal compression, spontaneity and augmentation. Normal color Doppler. Femoral Middle: Normal compression, spontaneity and augmentation. Normal color Doppler. Femoral Distal: Normal compression, spontaneity and augmentation. Normal color Doppler. Popliteal Vein: Normal compression, spontaneity and augmentation. Normal color Doppler. Posterior Tibial Vein: Positive for DVT. Peroneal Vein: Positive for DVT. LEFT LEG Common Femoral Vein: Normal compression, spontaneity and augmentation. Normal color Doppler. Common Femoral Vein/Greater Saphenous Junction: Normal compression, spontaneity and augmentation. Normal color Doppler. Femoral Proximal: Normal compression, spontaneity and augmentation. Normal color Doppler. Femoral Middle: Normal compression, spontaneity and augmentation. Normal color Doppler. Femoral Distal: Normal compression, spontaneity and augmentation. Normal color Doppler. Popliteal Vein: Normal compression, spontaneity and augmentation. Normal color Doppler. Posterior Tibial Vein: Normal compression, spontaneity and augmentation. Normal color Doppler. Peroneal Vein: Normal compression, spontaneity and augmentation. Normal color Doppler. US/Venous Duplex Imag/Jorden Extrem IMPRESSION: Positive for DVT in the right posterior tibial and peroneal veins. Otherwise negative exam. Electronically Signed: Hardik Cm MD at 20:28 EDT ,
--- NOTE | 2022-12-26 21:06 | EDS_ITS ---
HPI History of Present Illness Chief Complaint: Lower Extremity Injury Narrative Narrative: Patient presenting for right ankle/foot swelling. She has a history of recent surgery where she had a screw removed from a previous fracture. She states that this was a few weeks ago and it was not any swelling until last couple of days. She does not have history of DVT/PE but is concerned for this because of the swelling and she is postoperative. No chest pain or shortness of breath. Amber sanderson also was told she is a factor V Leiden carrier. [facility] Medical History Abdominal pain Asthma CPAP (continuous positive airway pressure) dependence Factor V Leiden FH: colon polyps GERD (gastroesophageal reflux disease) Hearing loss History of echocardiogram History of IBS Hoarse voice quality Lactose intolerance Leg cramps Migraine headache Multiple thyroid nodules Non-smoker Persistent cough Shortness of breath on exertion Thyroid nodule Vitamin D deficiency Vocal cord dysfunction Wears glasses Wears hearing aid Home Medications albuterol sulfate 90 mcg/actuation aerosol inhaler (ProAir HFA) 1 puff inhalation Q6H PRN SOB 09/27/18 [History Last Taken Unknown] cetirizine 10 mg capsule (Zyrtec) 10 mg PO DAILY 09/27/18 [History Last Taken Unknown] cholecalciferol (vitamin D3) 50 mcg (2,000 unit) capsule 2,000 unit PO DAILY 09/27/18 [History Last Taken Unknown] cyclobenzaprine 10 mg tablet 10 mg PO PRN PRN Spasms 09/27/18 [History Last Taken Unknown] fluticasone propionate 50 mcg/actuation nasal spray,suspension 1 spray intranasal DAILY 09/27/18 [History Last Taken Unknown] montelukast 10 mg tablet (Singulair) 10 mg PO QPM 09/27/18 [History Last Taken Unknown] dnfuhqrs-rpe-qkgba ac 400 mcg-calcium carb 500 mg-vit K1 20 mcg tablet (Women's 50 Plus Multivitamin) 1 tab PO DAILY 09/27/18 [History Last Taken Unknown] fluticasone furoate 100 mcg-vilanterol 25 mcg/dose inhalation powder (Breo El lipta) 1 inh inhalation DAILY 01/29/22 [History Last Taken 05/01/22] lactase 3,000 unit tablet (Lactaid) 3,000 unit PO TID 01/29/22 [History Last Taken Unknown] norgestimate-ethinyl estradiol 0.18 mg/0.215mg/0.25mg-35 mcg(28)tablet (Ortho Tri-Cyclen (28)) 1 tab PO DAILY 01/29/22 [History Last Taken Unknown] famotidine 40 mg tablet 40 mg PO BID #180 tabs 06/10/22 [Rx Last Taken Unknown] apixaban 5 mg (74 tabs) tablets in a dose pack (Eliquis DVT-PE Treat 30D Start) 5 mg PO BID #74 tabs 12/26/22 [Rx Last Taken Unknown] Allergy/AdvReac Type Severity Reaction Status Date / Time ciprofloxacin Allergy Intermediate unk Verified 08/01/22 15:13 naproxen [From Naprosyn] Allergy Intermediate hives Verified 08/01/22 15:13 sulfamethoxazole Allergy Rash Verified 08/01/22 15:13 [From Bactrim] trimethoprim [From Bactrim] Allergy Rash Verified 08/01/22 15:13 Family History Father Diabetes Hypertension Sister Factor V Leiden Mother Factor V Leiden Surgical History History of bunionectomy History of section History of colonoscopy History of esophagogastroduodenoscopy (EGD) History of wisdom tooth extraction S/P thyroid biopsy (~07/2022) Status post biopsy of thyroid gland (~09/2018) Status post biopsy of thyroid gland (~10/2019) Status post right foot surgery Social History Smoking Status: Never smoker alcohol intake: never ROS ROS ED Constitutional Constitutional ED: Denies chills, fever(s) or sweats Eyes Eyes: Denies blurry vision or change in vision ENT ENT ED: Denies ear pain or sore throat Cardiovascular Cardiovascular: Denies chest pain, palpitations or racing heartbeat Respiratory/Chest Respiratory/Chest: Denies cough, dyspnea or sputum Gastrointestinal Gastrointestinal: Denies abdominal pain, constipation, diarrhea, nausea or vomiting Genitourinary Genitourinary ED: Denies dysuria, hematuria or urinary frequency Musculoskeletal Musculoskeletal: Reports other Details: Right foot pain and swelling. ; Denies arthralgias Integumentary Denies abscess, Abrasions or rash Neurologic Neurologic: Denies headache(s), paresthesias or weakness Psychiatric Psychiatric: Denies anxiety, depression, suicidal ideation or suicidal thoughts Endocrine Endocrinology: Denies polydipsia or polyuria EXAM Physical Exam Const Vital Signs: 12/26/22 16:36 Temperature 97.6 F L Temperature Source Temporal Pulse Rate 87 Respiratory Rate 16 Blood Pressure 147/89 H Blood Pressure Mean 108 Pulse Ox 99 Oxygen Delivery Method Room Air General Appearance ED: NAD HEENT Reports moist mucous membranes normocephalic and atraumatic Resp normal respiratory effort and no retractions Auscultation: Negative for rales, rhonchi or wheezes Cardio regular rate and regular rhythm Extremity Extremity Narrative: Edema noted to the dorsum of the right foot. There is a surgical wound which appears to be clean, dry, intact. There is a little bit of erythema over it but its not increase in warmth. No cellulitic change. No bony tenderness elsewhere. Neurovascular intact brisk cap refill to all 5 toes MDM MDM MDM Narrative Medical decision making narrative: Patient presenting with right foot pain. She had surgery to remove a screw previously. I obtained an x-ray of the right foot and on my interpretation is no acute fracture or evidence of subcutaneous air. Radiology interprets this and agrees. I did obtain a DVT study as well which is positive for DVT in the right posterior tibial and peroneal veins. Given her history of surgery I will start her on Eliquis. She was given instructions to follow-up with her PCP and her surgeon. Starter pack was given. First dose given in the ED Impression: 1. Postop wound check 2. DVT Radiography Diagnostic Testing: Clinical Impression(s) from Imaging Studies Foot X-Ray 12/26/22 17:26 IMPRESSION: No acute fracture or dislocation. Postsurgical changes. Electronically Signed: Hardik Cm MD at 18:06 EDT , Venous Duplex 12/26/22 18:50 IMPRESSION: Positive for DVT in the right posterior tibial and peroneal veins. Otherwise negative exam. Electronically Signed: Hardik Cm MD at 20:28 EDT , ADDENDUM: 12/26/222106 IMPRESSION: Positive for DVT in the right posterior tibial and peroneal veins. Otherwise negative exam. N.B. : Vega Chaney DO, confirmed on 12/26/2022 21:00:52 (ET) that the healthcare facility has received the radiology report. Electronically Signed: Hardik Cm MD at 20:28 EDT , Discharge Plan Triage Chief Complaint: Lower Extremity Injury ED Provider: Vega Chaney Dx/Rx/DC Orders Instructions: ED Deep Vein Thrombosis (DVT) Prescriptions: [facility] DVT-PE Treat 30D Start 5 mg (74 tabs) tablets,dose pack 5 mg PO BID Qty: 74 0RF Rx Instructions: 10 mg p.o. twice daily x1 week then 5 mg p.o. twice daily No Action albuterol sulfate [ProAir HFA] 90 mcg/actuation HFA aerosol inhaler 1 puff INHALATION Q6H PRN (Reason: SOB) fluticasone propionate 50 mcg/actuation spray,suspension 1 spray INTRANASAL DAILY cyclobenzaprine 10 mg tablet 10 mg PO PRN PRN (Reason: Spasms) montelukast [Singulair] 10 mg tablet 10 mg PO QPM Women's 50 Plus Multivitamin 400 mcg-500 mg calcium-20 mcg tablet 1 tab PO DAILY cholecalciferol (vitamin D3) 2,000 unit capsule 2,000 unit PO DAILY Zyrtec 10 mg capsule 10 mg PO DAILY norgestimate-ethinyl estradiol [Ortho Tri-Cyclen (28)] 0.18/0.215/0.25 mg-35 mcg (28) tablet 1 tab PO DAILY fluticasone furoate-vilanterol [Breo Ellipta] 100-25 mcg/dose blister with device 1 inh inhalation DAILY lactase [Lactaid] 3,000 unit tablet 3,000 unit PO TID Rx Instructions: administer with meals and/or snacks famotidine 40 mg tablet 40 mg PO BID Qty: 180 3RF Primary Care Provider: Jimmie Hinson Referrals: Jimmie Hinson MD [Primary Care Provider] - Disposition Disposition: Home, Self Care Discharge Date/Time: 12/26/22 21:31
[2022-12-26] MEDS: APIXABAN 5 MG TABLET 10 MG PO (21:13)
== END 2022-12-26 21:31 | disposition home or self-care (01) ==
PROVIDERS: Emergency Provider Student in an Organized Health Care Education/Training Program; PCP Family Medicine; Visit Provider Student in an Organized Health Care Education/Training Program
DX: I82.441 Acute embolism and thrombosis of right tibial vein (principal); I82.451 Acute embolism and thrombosis of right peroneal vein; Z79.899 Other long term (current) drug therapy; Z98.890 Other specified postprocedural states
CPT/HCPCS: 73630; 93970; 99283

== ENCOUNTER → 2023-07-10 | Outpatient (CLI) | payer OTHER, SELFPAY ==
--- OUTSIDE RECORDS SUMMARY | 2023-07-10 11:56 | XMS RPT_ITS | CCD ---
Author Name Unknown Address [address] [place] [address] Organization [facility] Care Team Providers Care Supervisor [employer] Name Role Phone Vincent Hinson MD Primary Care Provider TERRY DAHL Attending Unavailable TERRY DAHL Admitting Unavailable VINCENT HINSON Primary Care UnavailVincent Sims MD Primary Care Provider VINCENT HINSON Primary Care Unavailab VINCENT Allen Referring Unavailab VINCENT Allen Primary Care Unavailab SAURAV Amaya Attending Unavailable VINCENT HINSON Primary Care Unavailab ZAYDA Hansen Attending Unavailable VINCENT HINSON Primary Care Unavailab TERRY Torre Attending Unavailable VINCENT HINSON Primary Care Unavailab VINCENT Allen Primary Care Unavailab JESSIE Rick Attending Unavailable VINCENT HINSON Attending Unavailab VINCENT Allen Primary Care Unavailab TERRY Torre Attending Unavailable VINCENT HINSON Primary Care Unavailab TERRY Torre Referring Unavailable VINCENT HINSON Primary Care Unavailab NEAL Garcia Attending Unavailable SHIV BYNUM Referring Unavailable VINCENT HINSON Primary Care Unavailab ZAYDA Hansen Attending Unavailable VINCENT HINSON Primary Care Unavailab ALLIE Siddiqui Attending Unavailable ZAYDA DELATORRE Referring Unavailable VINCENT HINSON Primary Care Unavailab TERRY Torre Referring Unavailable VINCENT HINSON Primary Care Unavailab NEAL Garcia Attending Unavailable TERRY DAHL Referring Unavailable VINCENT HINSON Primary Care UnavailBRIANNA Cr Referring Unavailable VINCENT HINSON Primary Care Unavailab shaun JOESHIV Baker Attending Unavailable VINCENT HINSON Primary Care Unavailab VINCENT Allen Referring Unavailab BRIANNA Valdez Referring Unavailable BRIANNA ALLAN Attending Unavailable VINCENT HINSON Primary Care Unavailab VINCENT Allen Primary Care Unavailab shaun PODJESSIE MARKHAM Attending Unavailable VINCENT HINSON Primary Care Unavailab VINCENT Allen Primary Care Unavailab le TESTTERRY BLACKWELL Attending Unavailable VINCENT HINSON Primary Care Unavailab shaun TESTTERRY BLACKWELL Attending Unavailable VINCENT HINSON Primary Care Unavailab le Allergies Allergy Classification Reported Allergen(s) Allergy Type Date of Onset Reaction(s) Facility (20 sources) Ciprofloxacin; Translations: [CIPROFLOXACIN] Drug Allergy 5 [facility] Work Phone: (20 sources) Naproxen; Translations: [NAPROXEN] Drug Allergy 8 [facility] Work Phone: (20 sources) Sulfamethoxazole / Trimethoprim; Translations: [SULFAMETHOXAZOLE-TRI METHOPRIM] Drug Allergy 5 [facility] Medications Current Medications Medication Drug Class(es) Dates Sig (Normalized) Sig (Original) acetaminophen 325 mg / oxyCODONE hydrochloride 5 mg oral tablet (3 sources) Opioid Agonist Start: 12-01-2022 End: 12-08-2022 take 1 tablet by mouth every six hours as needed for pain and pain oxyCODONE-acetamin ophen (PERCOCET) 5-325 mg tablet Indications: Painful orthopaedic hardware (HCC) Take 1 tablet by mouth every 6 hours as needed for pain for up to 7 days. 28 tablet 0 12/01/2022 12/08/2022 Active Completed/Discontinued Medications Medication Drug Class(es) Dates Sig (Normalized) Sig (Original) [id number] 200 actuat albuterol 0.09 mg/actuat metered dose inhaler (20 sources) beta2-Adrenergic Agonist Start: 03-30-2022 take 2 puff(s) by inhalation every four hours as needed albuterol HFA (VENTOLIN HFA) 90 mcg/actuation inhaler Indications: Persistent cough for 3 weeks or longer Inhale 2 Puffs as instructed every 4 hours as needed. 18 g 0 03/30/2022 Active Problems Active Problems Problem Classification Problem Date Documented Da te Episodic/Chronic Asthma (20 sources) Asthma; Translations: [Unspecified asthma, uncomplicated] Onset: 5 10-12-2015 Chronic Coagulation and hemorrhagic disorders (20 sources) Factor V Leiden mutation; Translations: [Activated protein C resistance] Onset: 8 10-28-2017 Chronic Esophageal disorders (20 sources) Gastroesophageal reflux disease; Translations: [Gastro-esophageal reflux disease without esophagitis] Onset: 8 04-19-2008 Chronic Headache; including migraine (20 sources) Episodic tension-type headache; Translations: [Episodic tension-type headache, not intractable] Onset: 6 10-12-2015 Chronic Headache; including migraine (1 source) Headache; including migraine; Translations: [Mixed headache] Onset: Immunizations and screening for infectious disease (2 sources) Suspected disease caused by 2019-nCoV; Translations: [Suspected COVID-19 virus infection] Episodic Nutritional deficiencies (20 sources) Vitamin D deficiency; Translations: [Vitamin D deficiency, unspecified] Onset: 1 07-13-2010 Chronic Other circulatory disease (1 source) Elevated blood-pressure reading without diagnosis of hypertension; Translations: [Elevated blood-pressure reading, without diagnosis of hypertension] Episodic Other connective tissue disease (1 source) Spasm; Translations: [Other muscle spasm] Episodic Other connective tissue disease (2 sources) Cramp in lower limb; Translations: [Cramp and spasm] Episodic Other connective tissue disease (1 source) Foot swelling; Translations: [Other specified soft tissue disorders] 01-26-2023 Episodic Other connective tissue disease (1 source) Other muscle spasm; Translations: [Muscle spasm] Onset: Episodic Other ear and sense organ disorders (20 sources) Hearing loss; Translations: [Unspecified hearing loss, unspecified ear] Onset: 2 07-02-2011 Chronic Other gastrointestinal disorders (20 sources) Irritable bowel syndrome; Translations: [Irritable bowel syndrome without diarrhea] Onset: 0 09-03-2009 Chronic Other infections; including parasitic (1 source) Personal history of other infectious and parasitic diseases; Translations: [History of COVID-19] Episodic Other liver diseases (16 sources) Non-alcoholic fatty liver; Translations: [Fatty (change of) liver, not elsewhere classified] Onset: 1 10-12-2015 Chronic Other liver diseases (20 sources) Fatty (change of) liver, not elsewhere classified; Translations: [Other chronic nonalcoholic liver disease] Onset: 1 10-12-2015 Chronic Other lower respiratory disease (2 sources) Persistent cough; Translations: [Persistent cough] Episodic Other lower respiratory disease (1 source) Chronic cough; Translations: [Chronic cough] Episodic Other non-traumatic joint disorders (1 source) Swollen ankle region; Translations: [Effusion, unspecified ankle] 01-26-2023 Episodic Other nutritional; endocrine; and metabolic disorders (20 sources) Body mass index 40+ - severely obese; Translations: [Morbid (severe) obesity due to excess calories] Onset: 8 11-03-2017 Chronic Other nutritional; endocrine; and metabolic disorders (1 source) Morbid (severe) obesity due to excess calories; Translations: [Obesity, Class III, BMI 40-49.9 (morbid obesity) (HCC)] Onset: 8 Chronic Other skin disorders (1 source) Swelling of lower leg; Translations: [Localized swelling, mass and lump, unspecified lower limb] 12-26-2022 Episodic Other upper respiratory disease (20 sources) Chronic rhinitis; Translations: [Chronic rhinitis] Onset: 5 05-01-2005 Chronic Other upper respiratory disease (20 sources) Allergic rhinitis due to house dust mite; Translations: [Other allergic rhinitis] Onset: 8 12-24-2017 Chronic Other upper respiratory disease (20 sources) Allergic rhinitis; Translations: [Other allergic rhinitis] Onset: 8 12-24-2017 Chronic Other upper respiratory disease (20 sources) Allergic rhinitis due to pollen; Translations: [Allergic rhinitis due to pollen] Onset: 8 12-24-2017 Chronic Other upper respiratory infections (2 sources) Chronic sinusitis; Translations: [Chronic sinusitis, unspecified] Onset: 3 Chronic Other upper respiratory infections (1 source) Acute maxillary sinusitis; Translations: [Acute maxillary sinusitis, unspecified] Episodic Otitis media and related conditions (1 source) Acute non-suppurative otitis media - serous; Translations: [Acute serous otitis media, bilateral] Episodic Residual codes; unclassified (20 sources) Obstructive sleep apnea syndrome; Translations: [Obstructive sleep apnea (adult) (pediatric)] Onset: 3 Chronic Residual codes; unclassified (1 source) Obstructive sleep apnea (adult) (pediatric); Translations: [ANA LILIA (obstructive sleep apnea)] Onset: 3 Chronic Residual codes; unclassified (5 sources) Pain; Translations: [Pain, unspecified] Episodic Residual codes; unclassified (3 sources) Postoperative state; Translations: [Other specified postprocedural states] Episodic Thyroid disorders (20 sources) Multinodular goiter; Translations: [Nontoxic multinodular goiter] Onset: 0 11-03-2019 Chronic Unclassified (1 source) Acute bilateral low back pain without sciatica; Translations: [Acute bilateral low back pain without sciatica] Onset: 9 Past or Other Problems Problem Classification Problem Date Documented Da te Episodic/Chronic Allergic reactions (20 sources) Eczema; Translations: [Dermatitis, unspecified] Onset: 10-30-2017 10-30-2017 Episodic Chronic obstructive pulmonary disease and bronchiectasis (1 source) Bronchitis, not specified as acute or chronic; Translations: [Sinobronchitis] Onset: 09-24-2022 Episodic Complication of device; implant or graft (2 sources) Pain due to internal orthopedic prosthetic devices, implants and grafts, initial encounter; Translations: [Painful orthopaedic hardware (HCC)] Onset: 12-01-2022 Episodic Headache; including migraine (20 sources) Headache; Translations: [Mixed headache] Onset: 10-12-2015 10-12-2015 Episodic Other aftercare (20 sources) Long-term current use of drug therapy; Translations: [Other care home (current) drug therapy] Onset: 03-06-2017 10-30-2017 Episodic Other connective tissue disease (20 sources) Plantar fascial fibromatosis; Translations: [Plantar fascial fibromatosis] Onset: 05-06-2010 05-06-2010 Episodic Other connective tissue disease (20 sources) Bilateral dysfunction of posterior tibial tendon of feet; Translations: [Posterior tibial tendinitis, right leg] Onset: 08-01-2019 08-01-2019 Episodic Other connective tissue disease (1 source) Cramp and spasm; Translations: [Leg cramping] Onset: 04-03-2023 Episodic Other connective tissue disease (1 source) Other specified soft tissue disorders; Translations: [Foot swelling] Onset: 01-26-2023 Episodic Other ear and sense organ disorders (20 sources) Tinnitus; Translations: [Tinnitus, unspecified ear] Onset: 07-02-2011 07-02-2011 Episodic Other lower respiratory disease (20 sources) Dyspnea; Translations: [Shortness of breath] Onset: 11-27-2008 11-27-2008 Episodic Other non-traumatic joint disorders (1 source) Effusion, unspecified ankle; Translations: [Ankle swelling, unspecified laterality] Onset: 01-26-2023 Episodic Other screening for suspected conditions (not mental disorders or infectious disease) (4 sources) Patient encounter status; Translations: [Encounter for screening mammogram for malignant neoplasm of breast] Onset: 02-13-2023 Episodic Other upper respiratory disease (20 sources) Vocal cord dysfunction; Translations: [Other diseases of vocal cords] Onset: 05-14-2011 05-14-2011 Episodic Phlebitis; thrombophlebitis and thromboembolism (17 sources) Acute deep venous thrombosis of tibial vein of right leg; Translations: [Acute embolism and thrombosis of right tibial vein] Onset: 12-31-2022 12-31-2022 Episodic Residual codes; unclassified (1 source) Other specified postprocedural states; Translations: [Post-operative state] Onset: 12-05-2022 Episodic Residual codes; unclassified (1 source) Pain, unspecified; Translations: [Pain] Onset: 11-06-2022 Episodic Spondylosis; intervertebral disc disorders; other back problems (20 sources) Acute low back pain; Translations: [Acute bilateral low back pain without sciatica] Onset: 01-20-2006 Episodic Urinary tract infections (20 sources) Recurrent urinary tract infection; Translations: [Urinary tract infection, site not specified] Onset: 01-29-2018 01-29-2018 Episodic Results Test Name Value Interpretation Reference Range Facil ity Vital Signs Date Time Vital Sign Value Performing Clinician Faci lity 04-15-2023 14:00-0400 Body height 154.9 cm Shiv Diazi DO Work Phone: [facility] 04-15-2023 14:00-0400 Body temperature 97.81 [degF] Shiv Diazi DO Work Phone: [facility] 04-15-2023 14:00-0400 Body weight 108.41 kg Shiv Diazi DO Work Phone: [facility] 04-15-2023 14:00-0400 Diastolic blood pressure 84 mm[Hg] Shiv Joei DO Work Phone: [facility] 04-15-2023 14:00-0400 Heart rate 97 /min Shiv Diazi DO Work Phone: [facility] 04-15-2023 14:00-0400 SaO2% (BldA) [Mass fraction] 97 % Sihv Diazi DO Work Phone: [facility] 04-15-2023 14:00-0400 Systolic blood pressure 132 mm[Hg] Shiv Diazi DO Work Phone: [facility] 03-27-2023 10:17-0400 Body weight 107.96 kg Vincent Hinson MD Work Phone: [facility] 03-27-2023 10:17-0400 Diastolic blood pressure 76 mm[Hg] Vincent Hinson MD Work Phone: [facility] 03-27-2023 10:17-0400 Heart rate 78 /min Vincent Hinson MD Work Phone: [facility] 03-27-2023 10:17-0400 Respiratory rate 16 /min Vincent Hinson MD Work Phone: [facility] 03-27-2023 10:17-0400 SaO2% (BldA) [Mass fraction] 97 % Vincent Hinson MD Work Phone: [facility] 03-27-2023 10:17-0400 Systolic blood pressure 124 mm[Hg] Vincent Hinson MD Work Phone: [facility] 01-26-2023 12:21-0400 Body weight 112.13 kg 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: [facility] 01-26-2023 12:21-0400 Diastolic blood pressure 82 mm[Hg] 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: [facility] 01-26-2023 12:21-0400 Heart rate 84 /min 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: [facility] 01-26-2023 12:21-0400 Respiratory rate 18 /min 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: [facility] 01-26-2023 12:21-0400 SaO2% (BldA) [Mass fraction] 97 % 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: [facility] 01-26-2023 12:21-0400 Systolic blood pressure 118 mm[Hg] 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: [facility] 01-16-2023 09:05-0400 Body height 154.9 cm Brianna Allan MD Work Phone: [facility] 01-16-2023 09:05-0400 Body weight 110.22 kg Brianna Allan MD Work Phone: [facility] 01-16-2023 09:05-0400 Diastolic blood pressure 84 mm[Hg] Brianna Allan MD Work Phone: [facility] 01-16-2023 09:05-0400 Systolic blood pressure 122 mm[Hg] Brianna Allan MD Work Phone: [facility] 12-31-2022 13:18-0400 Body weight 108.41 kg 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: [facility] 12-31-2022 13:18-0400 Diastolic blood pressure 66 mm[Hg] 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: [facility] 12-31-2022 13:18-0400 Heart rate 87 /min 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: [facility] 12-31-2022 13:18-0400 Respiratory rate 16 /min 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: [facility] 12-31-2022 13:18-0400 SaO2% (BldA) [Mass fraction] 96 % 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: [facility] 12-31-2022 13:18-0400 Systolic blood pressure 122 mm[Hg] 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: [facility] 11-21-2022 08:44-0400 Body height 156.2 cm Pacc 1 Work Phone: [facility] 11-21-2022 08:44-0400 Body temperature 97.5 [degF] Pacc 1 Work Phone: [facility] 11-21-2022 08:44-0400 Body weight 107.5 kg Pacc 1 Work Phone: [facility] 11-21-2022 08:44-0400 Diastolic blood pressure 82 mm[Hg] Pacc 1 Work Phone: [facility] 11-21-2022 08:44-0400 Heart rate 76 /min Pacc 1 Work Phone: [facility] 11-21-2022 08:44-0400 Respiratory rate 16 /min Pacc 1 Work Phone: [facility] 11-21-2022 08:44-0400 SaO2% (BldA) [Mass fraction] 99 % Pacc 1 Work Phone: [facility] 11-21-2022 08:44-0400 Systolic blood pressure 106 mm[Hg] Pacc 1 Work Phone: [facility] 09-24-2022 13:03-0400 Diastolic blood pressure 96 mm[Hg] Zayda Delatorre EMT/DISPATCHER.[employer] Work Phone: [facility] 09-24-2022 13:03-0400 Heart rate 87 /min Zayda Delatorre EMT/DISPATCHER.[employer] Work Phone: [facility] 09-24-2022 13:03-0400 Respiratory rate 18 /min Zayda Delatorre EMT/DISPATCHER.[employer] Work Phone: [facility] 09-24-2022 13:03-0400 SaO2% (BldA) [Mass fraction] 96 % Zayda Delatorre EMT/DISPATCHER.[employer] Work Phone: [facility] 09-24-2022 13:03-0400 Systolic blood pressure 138 mm[Hg] Zayda Delatorre EMT/DISPATCHER.[employer] Work Phone: [facility] 09-05-2022 09:57-0400 Body temperature 97.39 [degF] Saurav Gonzales DO Work Phone: [facility] 09-05-2022 09:57-0400 Body weight 105.23 kg Saurav Gonzales DO Work Phone: [facility] 09-05-2022 09:57-0400 Diastolic blood pressure 80 mm[Hg] Saurav Gonzales DO Work Phone: [facility] 09-05-2022 09:57-0400 Heart rate 76 /min Saurav Gonzales DO Work Phone: [facility] 09-05-2022 09:57-0400 Respiratory rate 16 /min Saurav Gonzales DO Work Phone: [facility] 09-05-2022 09:57-0400 Systolic blood pressure 120 mm[Hg] Saurav Gonzales DO Work Phone: [facility] 04-11-2022 09:27-0400 Diastolic blood pressure 86 mm[Hg] Jessie Damicologlori EMT/DISPATCHER.[employer] Work Phone: [facility] 04-11-2022 09:27-0400 Heart rate 69 /min Jessie Crooks EMT/DISPATCHER.[employer] Work Phone: [facility] 04-11-2022 09:27-0400 Systolic blood pressure 128 mm[Hg] 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: [facility] 04-11-2022 08:58-0400 Body temperature 98.2 [degF] 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: [facility] 04-11-2022 08:58-0400 Body weight 101.42 kg 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: [facility] 04-11-2022 08:58-0400 Respiratory rate 16 /min 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: [facility] 04-11-2022 08:58-0400 SaO2% (BldA) [Mass fraction] 99 % 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: [facility] 02-24-2022 08:21-0400 Body weight 105.42 kg 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: [facility] 02-24-2022 08:21-0400 Diastolic blood pressure 74 mm[Hg] 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: [facility] 02-24-2022 08:21-0400 Heart rate 76 /min 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: [facility] 02-24-2022 08:21-0400 Respiratory rate 16 /min 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: [facility] 02-24-2022 08:21-0400 SaO2% (BldA) [Mass fraction] 99 % 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: [facility] 02-24-2022 08:21-0400 Systolic blood pressure 112 mm[Hg] 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: [facility] 01-16-2022 10:13-0400 Body weight 105.51 kg Vincent Hinson MD Work Phone: [facility] 01-16-2022 10:13-0400 Diastolic blood pressure 74 mm[Hg] Vincent Hinson MD Work Phone: [facility] 01-16-2022 10:13-0400 Heart rate 75 /min Vincent Hinson MD Work Phone: [facility] 01-16-2022 10:13-0400 Respiratory rate 16 /min Vincent Hinson MD Work Phone: [facility] 01-16-2022 10:13-0400 SaO2% (BldA) [Mass fraction] 99 % Vincent Hinson MD Work Phone: [facility] 01-16-2022 10:13-0400 Systolic blood pressure 118 mm[Hg] Vincent Hinson MD Work Phone: [facility] 12-25-2021 12:16-0400 Body temperature 98.1 [degF] Fred Akins MD Work Phone: [facility] 12-25-2021 12:16-0400 Body weight 102.97 kg Fred Akins MD Work Phone: [facility] 12-25-2021 12:16-0400 Diastolic blood pressure 90 mm[Hg] Fred Akins MD Work Phone: [facility] 12-25-2021 12:16-0400 Heart rate 87 /min Fred Akins MD Work Phone: [facility] 12-25-2021 12:16-0400 Respiratory rate 21 /min Fred Akins MD Work Phone: [facility] 12-25-2021 12:16-0400 SaO2% (BldA) [Mass fraction] 98 % Fred Akins MD Work Phone: [facility] 12-25-2021 12:16-0400 Systolic blood pressure 132 mm[Hg] Fred Akins MD Work Phone: [facility] 10-18-2021 13:52-0400 Body weight 108.77 kg Jessie Crooks APRN.CNP Work Phone: [facility] 10-18-2021 13:52-0400 Diastolic blood pressure 90 mm[Hg] 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: [facility] 10-18-2021 13:52-0400 Heart rate 90 /min 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: [facility] 10-18-2021 13:52-0400 Respiratory rate 18 /min 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: [facility] 10-18-2021 13:52-0400 SaO2% (BldA) [Mass fraction] 98 % 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: [facility] 10-18-2021 13:52-0400 Systolic blood pressure 130 mm[Hg] 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: [facility] Encounters Encounter Date Encounter Type Care Provider Facility Start: 07-03-2023 End: 07-03-[address] [facility] Facility:[facility] Start: 05-22-2023 End: 05-23-2023 ambulatory [facility] Facility:[facility] Start: 04-16-2023 Telephone encounter Shiv samuels DO Work Phone: Hematology/Oncology Procedures Date Procedure Procedure Detail Performing Clinician Start: 02-13-2023 End: 02-13-2023 Mammography Brianna Allan MD Work Phone: Start: 04-05-2022 [employer] COVI D-19 BIVALENT BOOSTER VACCINE, AGE 12+ YR Saurav Gonzales DO Work Phone: Start: 04-05-2022 INFLUENZA VACCINE QUADRIVALENT 6 MO - 64 YRS IM Saurav Gonzales DO Work Phone: Start: 01-31-2022 Mammography Mammograph y Coordinator Start: 01-10-2021 Mammography Jesise Podl oglori EMT/DISPATCHER.[employer] Work Phone: Start: 01-11-2020 Adult depression scr eening assessment 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: Start: 10-28-2019 Lipid 1996 panel - S harriet or Plasma Brianna Allan MD Work Phone: Start: 09-06-2008 Colonoscopy Jessie solo APRN.CNP Work Phone: Plan of Treatment Date Care Activity Detail Author Start: 11-23-2030 Urine microalbumin profile [facility] Start: 01-16-2027 HPV TESTING HPV TESTING [facility] Start: 01-16-2027 PAP TESTING PAP TESTING [facility] Start: 04-03-2026 [facility] Start: 02-24-2025 DIABETES SCREEN DIABETES SCREEN [facility] Start: 02-24-2025 [facility] Start: 02-02-2025 COLOGUARD (FIT-DNA) COLOGUARD (FIT-D NA) [facility] Start: 02-02-2025 COLORECTAL CANCER SCREENING COLORECTAL CANCER SCREENING [facility] Start: 10-27-2024 Lipid 1996 panel - S harriet or Plasma Lipid Screening [facility] Start: 10-27-2024 LIPID SCREEN LIPID SCREEN [facility] Start: 08-05-2024 DIABETES SCREEN DIABETES SCREEN [facility] Start: 03-27-2024 Annual PCP Team Online Merchant gita Disease Visit Annual PCP Team Chronic Disease Visit [facility] Start: 02-14-2024 Mammography [facility] Start: 01-27-2024 ANNUAL PCP TEAM TREE DRILLER GITA DISEASE VISIT ANNUAL PCP TEAM CHRONIC DISEASE VISIT [facility] Start: 01-01-2024 ANNUAL PCP TEAM TREE DRILLER GITA DISEASE VISIT ANNUAL PCP TEAM CHRONIC DISEASE VISIT [facility] Start: 09-25-2023 ANNUAL PCP TEAM TREE DRILLER GITA DISEASE VISIT ANNUAL PCP TEAM CHRONIC DISEASE VISIT [facility] Start: 09-06-2023 ANNUAL PCP TEAM TREE DRILLER GITA DISEASE VISIT ANNUAL PCP TEAM CHRONIC DISEASE VISIT [facility] Start: 04-15-2023 End: 07-15-2023 Coagulation factor VIII activity actual/normal in Platelet poor plasma by Coagulation assay [facility] Work Phone: Immunizations Immunization Date Immunization Notes Care Provider Fa cility 03-14-2023 influenza, injectabl e, quadrivalent, contains preservative Brianna Allan MD Work Phone: [facility] 04-05-2022 COVID-19 booster vaccine, age 12+ yr, bivalent (PFIZER-BIONTCertiVox) Immunization [place] Work Phone: [facility] Work Phone: 04-05-2022 influenza, injectabl e, quadrivalent, contains preservative Immunization [place] Work Phone: [facility] 03-05-2021 influenza, injectabl e, quadrivalent, contains preservative 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: [facility] 11-23-2020 tetanus toxoid, redu hodan diphtheria toxoid, and acellular pertussis vaccine, adsorbed 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: [facility] 10-06-2020 COVID-19 vaccine, fu ll dose (MODERNA) 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[facility] Work Phone: [facility] Work Phone: 09-08-2020 COVID-19 vaccine, fu ll dose (MODERNA) 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[facility] Work Phone: [facility] Work Phone: 03-10-2020 influenza, injectabl e, quadrivalent, contains preservative 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: [facility] 04-09-2019 influenza, injectabl e, quadrivalent, contains preservative 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: [facility] 03-27-2018 influenza, injectabl e, quadrivalent, contains preservative 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: [facility] 03-13-2017 influenza, injectabl e, quadrivalent, preservative free 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: [facility] 03-07-2016 influenza, injectabl e, quadrivalent, contains preservative 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: [facility] 10-12-2015 pneumococcal polysaccharide vaccine, 23 valent 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[facility] Work Phone: [facility] 02-16-2015 influenza, injectabl e, quadrivalent, preservative free 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: [facility] 04-28-2009 novel [id number], preservative-free, injectable 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[facility] Work Phone: [facility] Work Phone: 04-19-2008 tetanus toxoid, redu hodna diphtheria toxoid, and acellular pertussis vaccine, adsorbed 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[facility] Work Phone: [facility] 04-17-2008 influenza virus vaccine, unspecified formulation 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[facility] Work Phone: [facility] Work Phone: 05-01-2005 influenza virus vaccine, unspecified formulation 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[facility] Work Phone: [facility] Work Phone: Payers Date Payer Category Payer Private Health Insurance [facility] CHOICE PLUS [id number] 2012-Present [phone] [address] [address] [place] [address] [facility] [id number] 2012 Private Health Insurance [facility] CHOICE PLUS [id number] 2012-Present [phone] [address] [address] [place] [address] [facility] [id number] 2012 Unknown [id number] Social History Date Type Detail Facility Start: 04-16-2011 End: 02-24-2022 Tobacco smoking status HIIS Never smoked tobacco [facility] Start: 10-18-2021 End: 11-06-2022 Alcohol intake Current non-drinker of alcohol (finding) [facility] Start: 12-14-2019 End: 09-05-2022 History SDOH Alcohol Frequency 1 [facility] Start: 12-14-2019 History SDOH Alcohol Std Drinks 98 [facility] Start: 11-01-2019 End: 09-05-2022 History SDOH Social Connections Phone 5 [facility] Start: 11-01-2019 End: 09-05-2022 History SDOH Social Connections Get Together 3 [facility] Start: 11-01-2019 End: 09-05-2022 History SDOH Physical Activity DPW 0 [facility] Start: 12-14-2019 End: 09-05-2022 History SDOH Transport Med 2 [facility] Start: 10-31-2019 Education 12 [facility] Start: 1975 Sex Assigned At Not on file [facility] Start: 10-08-2021 End: 01-31-2022 Exposure to SARS-CoV-2 (event) Not sure [facility] Start: 04-16-2011 End: 02-24-2022 Tobacco use and exposure Smokeless tobacco non-user [facility] Work Phone: Start: 09-05-2022 History SDOH Physica l Activity DPW 4 [facility] Start: 05-21-2020 End: 09-05-2022 History of Social function [facility] Start: 05-21-2020 End: 09-05-2022 Social connection and isolation panel [facility] Do you belong to any clubs or organizations such as hoahaoism groups, unions, fraternal or athletic groups, or school groups? Yes [facility] Are you now , , , , never or living with a partner? [facility] How often to you hav e a drink containing alcohol? Never [facility] How many standard dr inks containing alcohol do you have on a typical day? Patient does not drink [facility] Do you feel stress - tense, restless, nervous, or anxious, or unable to sleep at night because your mind is troubled all the time - these days [OSQ] Only a little [facility] (I/We) worried wheth er (my/our) food would run out before (I/we) got money to buy more. Never true [facility] In the past 12 month s, was there a time when you were not able to pay the mortgage or rent on time? No [facility] Clinical Notes 11-03-2019 to 07-03-2023 Telephone Encounter - Joan Mckenzie PAUL - 04/17/2023 11:06 AM EDTTelephone Encounter - Shiv Bynum, - 04/16/2023 6:00 PM EDTMShiv samano, - 04/15/2023 1:59 PM EDTPatient Instructions Note Date & Type Note Facility 07-03-2023 Note HNO ID: [id number] Author: ALLIE IRBERA, PT Service: ? Author Type: Physical Therapist Type: Progress Notes Filed: 07/03/2023 10:31 Note Text: Episode Visit Count: 1 Therapist That Will Accept/Oversee The Plan Of Care: Allie Ribera Start of Care Date: 07/03/23 Onset Date: 06/15/22 ( Over a year ago off and on. ) Patient Identified by Name and Date of : Yes [facility] PHYSICAL THERAPY EVALUATION PLAN OF CARE: Assessment: Zahra Norma Pierce presents with diagnosis of low back pain and muscle spasms that interferes with working, cleaning . She presents with impairments in flexibility, overall function, posture, strength, symptom management, and soft tissue restrictions. PROMIS? (Patient-Reported Outcomes Measurement Information System) scores were reviewed and physical function domain and self efficacy domain identified as a rehabilitation concern. Prognosis for therapy is Excellent due to: current objective clinical presentation, good overall health status, positive past response to therapy, good support system/ coping skills, within-session changes . She will benefit from skilled therapy services to meet the goals established for this plan of care as noted below. Goals for Episode of Care: created on 07/03/23 through 09/01/23 [place] in home exercise program. Patient will decrease pain rating by 2 points to meet minimal clinical important difference for numeric pain rating scale. Patient will increase active ROM of lumbar spine to fingertips to distal tibias forward flex, symmetrical lateral flex to allow pt to to improve postural alignment and to improve performance of ADLs. Patient will demonstrate increase in core strength to 4+ to 5/5 during manual muscle testing in order to improve function for leisure / recreation skills, prior functional tasks, and work tasks. Patient will increase flexibility of lumbar, hip musculature and hamstrings to SKC 120 deg, SLR 60 degrees to improve mechanics and decrease pain. Perform working;cleaning; without pain. Improve postural awareness. Patient Goals: To help relieve the pain. Planned Interventions, Frequency, and Duration: Current Frequency: 1x/week Duration: 8 weeks Total Number of Visits Planned: 8 Planned Treatment Interventions: Therapeutic exercise (07843), Neuromuscular re-education (55421), Manual therapy (60464), Self-group home management (20708), Patient/Family/Caregiver Education PLAN FOR NEXT VISIT: Assess response to HEP and postural correction techniques applied to work setting. May review exercises and progress core strengthening/stretches. May add manual techniques (with use of foam roller or ball) for lumbar musculature to address soft tissue restrictions as they present. Patient demonstrates good understanding of plan of care and treatment. The above goals and plan of care were discussed and agreed upon by patient/family. SUBJECTIVE: Pt reports that this pain is aggravated by work. Regular daily stuff I'm fine, and when I was off in the summer it was fine. When I started back to work it started bothering me again. When she moves furniture and play areas around, and leaning over to wipe tables and help the kids all causes the pain. Sometimes sitting in the kid-sized chairs. Usually when sits up straight is fine, but some days notices when her back is fatigued later in day is more painful. At end of day, after sits and relaxes in evening will hurt when goes to get back up. It seems like everything is tight when I first lie down, then once the muscoes are relaxed I can move around better. Patient Goals: To help relieve the pain. 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) Home Environment Patient Lives With: Spouse Intake Information: Prescription present Previous Treatment: Pain meds , Muscle relaxer (meloxicam) Spine History Pain is Worse Always: (Stiff in mornings) Pain is Better Always: (Better/loosens up after get up and moving for a while.) Sleeping Position: Side lying right > left, Prone - head either right or left (uses CPAP to sleep) Sleep Affected by Pain: Not affected by pain Pain: Pain Pain Level: 3 (3 currently, up to 7/10 at end of day, up to 9-10/10 if cleans) Pain Location: Low Back/Lumbar Spine - Right, Low Back/Lumbar Spine - Left, Low Back/Lumbar Spine- Midline, Hip - Right, Hip - Left Description: Aching, Pressure (a couple episodes of short-lived tingling R lumbar region) Frequency: Intermittent Post Treatment Pain Post Treatment Pain Level: (not rated numerically) Post Treatment Pain Location: Low Back/Lumbar Spine - Right, Low Back/Lumbar Spine- Midline, Low Back/Lumbar Spine - Left Post Treatment Pain Description: Sore PROMIS Scales Higher is Better 07/01/2023 07/29/2019 Phys Func - Score 36 ( (more content not included)... [facility] 05-22-2023 Note HNO ID: [id number] Author: Zayda Delatorre APRN.[employer] Service: ? Author Type: Nurse Practitioner Type: Progress Notes Filed: 05/22/2023 3:43 PM Note Text: This is a 47 year old female who presents today with: Patient presents with: Back Pain: Intermittent, x 3 months HISTORY OF PRESENT ILLNESS: September Norma Pierce is a 47 year old female. Patient presents with: Back Pain: Intermittent, x 3 months Pt presents today with complaint of lower back pain. Refers that it started about 3 months ago. Refers that she had it in the spring. Refers it was better over summer (when she wasn't working). 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 Sometimes will need to do some cleaning and moving tables at work -- which exacerbates it. Has been trying to do stretches and has been massage and reports that she has knots. No specific injury. No n/t in the legs. Refers a couple of times in the back. No loss of bowel/bladder. Gait normal. She has tried icy-hot patch and ibuprofen. PAST MEDICAL HISTORY: PAST MEDICAL HISTORY Diagnosis Date Abdominal pain, right lower quadrant Acute deep vein thrombosis (DVT) of tibial vein (HCC) 12/31/2022 DVT after surgery of right foot to remove infected hardware Allergic rhinitis, cause unspecified Burn of unspecified site, unspecified degree 3rd degee on feet Factor V Leiden mutation (HCC) 10/28/2017 heterozygous Fatty liver disease, non-alcoholic 07/17/2010 Gastroesophageal reflux disease 09/22/2016 Hearing loss 07/02/2011 bilateral History of blood clots 12/2022 in right leg after surgery Lactose intolerance Sleep apnea Tinnitus 07/02/2011 Unspecified asthma(493.90) Dr. Keene Vitamin D deficiency 07/13/2010 Vocal cord dysfunction 05/14/2011 PAST SURGICAL HISTORY Procedure Laterality Date DELIVERY ONLY Two C/Sections COLONOSCOPY FLX DX W/COLLJ SPEC WHEN PFRMD 09/06/2008 FOOT SURGERY HX Right 12/01/2022 PAST SURGICAL HISTORY OF 05/2010 Right chino bunionectomy PAST SURGICAL HISTORY OF 10/15/2010 Vulvar Biopsy for VULVAR NEVUS SPLIT AGRFT F/S/N/H/F/G/M/D GT 1ST 100 CM/ [facility] TUBAL LIGATION, 09/03/2004 ALLERGIES Naproxen, Bactrim [Sulfamethoxazole-Trimethoprim], and Ciprofloxacin MEDICATIONS Current Outpatient Medications Medication Sig cetirizine (ZYRTEC) 10 mg tablet Take 10 mg by mouth once daily. Vitamin E, dl, acetate, (VITAMIN E) 400 unit capsule Take 400 Units by mouth once daily. Magnesium 250 mg tab Take 250 mg by mouth once daily. albuterol HFA (VENTOLIN HFA) 90 mcg/actuation inhaler Inhale 2 Puffs as instructed every 4 hours as needed. famotidine (PEPCID) 20 mg tablet Take 1 tablet by mouth twice daily as needed. BREO ELLIPTA 100-25 mcg/dose inhaler Inhale 1 Inhalation as instructed once daily. lactase (LACTAID) 3,000 unit tablet Take 1 tablet by mouth three times daily with meals. nystatin (NYSTOP) powder Apply 1 application to affected area three times daily. montelukast (SINGULAIR) 10 mg tablet Take 10 mg by mouth once daily. CPAP daily at bedtime. olopatadine (PATANOL) 0.1 % ophthalmic solution Use 1 Drop in both eyes once daily. Cholecalciferol, Vitamin D3, 25 mcg (1,000 unit) cap Take 2 capsules by mouth once daily. acidophilus-pectin, citrus 100 million cell-10 mg cap Take 1 capsule by mouth once daily. fluticasone (FLONASE) 50 mcg/actuation nasal spray Use 2 Sprays in each nostril once daily. FOR ALLERGIC NASAL SX. MULTIVITAMIN TAB Take one(1) tablet daily. No current facility-administered medications for this visit. FAMILY HISTORY Problem Relation Age of Onset Heart Mother Bicuspbid valve Arthritis Mother Blood Clots Mother Diabetes Father Hypertension Father Lipids Father other (rheumatoid arthritis) Sister Factor 5 Leiden Sister Factor 5 Leiden Brother None Brother Thyroid Maternal Grandmother Diabetes Maternal Grandmother Social History Tobacco Use Smoking status: Never Smokeless tobacco: Never Vaping Use Vaping Use: Never used Substance Use Topics Alcohol use: No Drug use: No EXAM: BP 134/90 Pulse 81 Resp 16 LMP 03/06/2023 SpO2 96% PHYSICAL EXAM: General Appearance: Well appearing, alert, in no acute distress, well-hydrated, well nourished.. Skin: Skin color, texture, turgor normal, no suspicious rashes or lesions. Head: Normocephalic, no masses, lesions, tenderness or abnormalities. Eyes: Anicteric sclera. Pupils are equally round and reactive to light. Extraocular movements are intact. . Back:no pain to palpation of vertebrae, good flexion and extension, good range of motion, + paralumbar muscle tenderness -- R>L. reflexes are 2+ and symmetric, motor and sensory appear to be normal, negative SLR test, no evidence of scoliosis Lungs: Lungs clear to auscultation. No wheezing, rhonchi, rales.. Heart: RRR without (more content not included)... [facility] 04-17-2023 Miscellaneous Notes Pt notified and voices understanding Joan Mckenzie LPN Can let her know repeat testing of factor VIII showed it to be normal. Shiv Bynum DO documented in this encounter [facility] 04-15-2023 Note HNO ID: [id number] Author: Shiv Bynum DO Service: ? Author Type: Physician Type: Progress Notes Filed: 04/15/2023 2:48 PM Note Text: Patient referred by Dr. Hinson for DVT. The impression and plan will be communicated by way of the shared electronic record or faxed under separate cover letter. HPI: The patient is a 47-year-old female with a past medical history significant for headaches, asthma, chronic rhinitis, ANA LILIA, vocal cord dysfunction, hearing loss, reflux, irritable bowel, fatty liver, goiter and DVT. She originally underwent bunion correction surgery about 12 years ago. Recently underwent hardware removal on 12/01/2022. Diagnosed with right below knee DVT 12/26. Posterior tibial and peroneal vein. Apixaban until 03/28. Hypercoagulation panel 04/03. Fully ambulatory. Noticed spot tenderness medial distal right LE. Had wisdom teeth out about 10 years ago. No bleeding. Was on OCPs until diagnosed with DVT. Was taking for menorrhagia for about 5 years. PAST MEDICAL HISTORY Diagnosis Date Abdominal pain, right lower quadrant Acute deep vein thrombosis (DVT) of tibial vein (HCC) 12/31/2022 DVT after surgery of right foot to remove infected hardware Allergic rhinitis, cause unspecified Burn of unspecified site, unspecified degree 3rd degee on feet Factor V Leiden mutation (HCC) 10/28/2017 heterozygous Fatty liver disease, non-alcoholic 07/17/2010 Gastroesophageal reflux disease 09/22/2016 Hearing loss 07/02/2011 bilateral History of blood clots 12/2022 in right leg after surgery Lactose intolerance Sleep apnea Tinnitus 07/02/2011 Unspecified asthma(493.90) Dr. Keene Vitamin D deficiency 07/13/2010 Vocal cord dysfunction 05/14/2011 PAST SURGICAL HISTORY Procedure Laterality Date DELIVERY ONLY Two C/Sections COLONOSCOPY FLX DX W/COLLJ SPEC WHEN PFRMD 09/06/2008 FOOT SURGERY HX Right 12/01/2022 PAST SURGICAL HISTORY OF 05/2010 Right chino bunionectomy PAST SURGICAL HISTORY OF 10/15/2010 Vulvar Biopsy for VULVAR NEVUS SPLIT AGRFT F/S/N/H/F/G/M/D GT 1ST 100 CM/ THYROID BIOPSY US Left [facility] 3 years TUBAL LIGATION, 09/03/2004 ALLERGIES Allergen Reactions Naproxen Hives She should strictly avoid use of naproxen. She may take aspirin and other NSAIDs as tolerated. Bactrim [Sulfametho* Ciprofloxacin Hives Current Outpatient Medications Medication Sig cetirizine (ZYRTEC) 10 mg tablet Take 10 mg by mouth once daily. Vitamin E, dl, acetate, (VITAMIN E) 400 unit capsule Take 400 Units by mouth once daily. Magnesium 250 mg tab Take 250 mg by mouth once daily. albuterol HFA (VENTOLIN HFA) 90 mcg/actuation inhaler Inhale 2 Puffs as instructed every 4 hours as needed. famotidine (PEPCID) 20 mg tablet Take 1 tablet by mouth twice daily as needed. BREO ELLIPTA 100-25 mcg/dose inhaler Inhale 1 Inhalation as instructed once daily. lactase (LACTAID) 3,000 unit tablet Take 1 tablet by mouth three times daily with meals. nystatin (NYSTOP) powder Apply 1 application to affected area three times daily. montelukast (SINGULAIR) 10 mg tablet Take 10 mg by mouth once daily. CPAP daily at bedtime. olopatadine (PATANOL) 0.1 % ophthalmic solution Use 1 Drop in both eyes once daily. Cholecalciferol, Vitamin D3, 25 mcg (1,000 unit) cap Take 2 capsules by mouth once daily. acidophilus-pectin, citrus 100 million cell-10 mg cap Take 1 capsule by mouth once daily. fluticasone (FLONASE) 50 mcg/actuation nasal spray Use 2 Sprays in each nostril once daily. FOR ALLERGIC NASAL SX. MULTIVITAMIN TAB Take one(1) tablet daily. No current facility-administered medications for this visit. Social History Tobacco Use Smoking status: Never Smokeless tobacco: Never Vaping Use Vaping Use: Never used Substance Use Topics Alcohol use: No Drug use: No Family History Problem Relation Age of Onset Heart Mother Bicuspbid valve Arthritis Mother Blood Clots Mother Diabetes Father Hypertension Father Lipids Father other (rheumatoid arthritis) Sister None Brother Thyroid Maternal Grandmother Diabetes Maternal Grandmother ROS: Constitutional: No fever. No drenching night sweats. Normal appetite. No unexplained weight loss. No significant fatigue. Neuro: No recent RAHMAN, vertigo, dizziness or imbalance. No symptoms of sensory neuropathy. HEENT: No recent change in voice, vision or hearing. Resp: Asthma under control. . CVS: No exertional chest pain, PND or orthopnea. No extremity swelling/edema GI: No reflux, n/v, change in bowel habits. No abdominal pain, bloating or distension. No black or bloody stools. : No dysuria or gross hematuria. No symptoms of bladder outlet obstruction. Endo: No hot flashes. No polyuria or polydipsia. No heat or cold intolerance. Musculoskeletal: No bone, back, joint and muscular pain. Derm: No current rash. No history of jaundice. (more content not included)... [facility] 04-15-2023 History of Present illness Narrative Patient referred by Dr. Hinson for DVT. The impression and plan will be communicated by way of the shared electronic record or faxed under separate cover letter. HPI: The patient is a 47-year-old female with a past medical history significant for headaches, asthma, chronic rhinitis, ANA LILIA, vocal cord dysfunction, hearing loss, reflux, irritable bowel, fatty liver, goiter and DVT. She originally underwent bunion correction surgery about 12 years ago. Recently underwent hardware removal on 12/01/2022. Diagnosed with right below knee DVT 12/26. Posterior tibial and peroneal vein. Apixaban until 03/28. Hypercoagulation panel 04/03. Fully ambulatory. Noticed spot tenderness medial distal right LE. Had wisdom teeth out about 10 years ago. No bleeding. Was on OCPs until diagnosed with DVT. Was taking for menorrhagia for about 5 years. PAST MEDICAL HISTORY Diagnosis Date Abdominal pain, right lower quadrant Acute deep vein thrombosis (DVT) of tibial vein (HCC) 12/31/2022 DVT after surgery of right foot to remove infected hardware Allergic rhinitis, cause unspecified Burn of unspecified site, unspecified degree 3rd degee on feet Factor V Leiden mutation (HCC) 10/28/2017 heterozygous Fatty liver disease, non-alcoholic 07/17/2010 Gastroesophageal reflux disease 09/22/2016 Hearing loss 07/02/2011 bilateral History of blood clots 12/2022 in right leg after surgery Lactose intolerance Sleep apnea Tinnitus 07/02/2011 Unspecified asthma(493.90) Dr. Keene Vitamin D deficiency 07/13/2010 Vocal cord dysfunction 05/14/2011 PAST SURGICAL HISTORY Procedure Laterality Date DELIVERY ONLY Two C/Sections COLONOSCOPY FLX DX W/COLLJ SPEC WHEN PFRMD 09/06/2008 FOOT SURGERY HX Right 12/01/2022 PAST SURGICAL HISTORY OF 05/2010 Right chino bunionectomy PAST SURGICAL HISTORY OF 10/15/2010 Vulvar Biopsy for VULVAR NEVUS SPLIT AGRFT F/S/N/H/F/G/M/D GT 1ST 100 CM/</1 % THYROID BIOPSY US [facility] years TUBAL LIGATION, 09/03/2004 ALLERGIES Allergen Reactions Naproxen Hives She should strictly avoid use of naproxen. She may take aspirin and other NSAIDs as tolerated. Bactrim [Sulfametho* Ciprofloxacin Hives Current Outpatient Medications Medication Sig cetirizine (ZYRTEC) 10 mg tablet Take 10 mg by mouth once daily. Vitamin E, dl, acetate, (VITAMIN E) 400 unit capsule Take 400 Units by mouth once daily. Magnesium 250 mg tab Take 250 mg by mouth once daily. albuterol HFA (VENTOLIN HFA) 90 mcg/actuation inhaler Inhale 2 Puffs as instructed every 4 hours as needed. famotidine (PEPCID) 20 mg tablet Take 1 tablet by mouth twice daily as needed. BREO ELLIPTA 100-25 mcg/dose inhaler Inhale 1 Inhalation as instructed once daily. lactase (LACTAID) 3,000 unit tablet Take 1 tablet by mouth three times daily with meals. nystatin (NYSTOP) powder Apply 1 application to affected area three times daily. montelukast (SINGULAIR) 10 mg tablet Take 10 mg by mouth once daily. CPAP daily at bedtime. olopatadine (PATANOL) 0.1 % ophthalmic solution Use 1 Drop in both eyes once daily. Cholecalciferol, Vitamin D3, 25 mcg (1,000 unit) cap Take 2 capsules by mouth once daily. acidophilus-pectin, citrus 100 million cell-10 mg cap Take 1 capsule by mouth once daily. fluticasone (FLONASE) 50 mcg/actuation nasal spray Use 2 Sprays in each nostril once daily. FOR ALLERGIC NASAL SX. MULTIVITAMIN TAB Take one(1) tablet daily. No current facility-administered medications for this visit. Social History Tobacco Use Smoking status: Never Smokeless tobacco: Never Vaping Use Vaping Use: Never used Substance Use Topics Alcohol use: No Drug use: No Family History Problem Relation Age of Onset Heart Mother Bicuspbid valve Arthritis Mother Blood Clots Mother Diabetes Father Hypertension Father Lipids Father other (rheumatoid arthritis) Sister None Brother Thyroid Maternal Grandmother Diabetes Maternal Grandmother ROS: Constitutional: No fever. No drenching night sweats. Normal appetite. No unexplained weight loss. No significant fatigue. Neuro: No recent RAHMAN, vertigo, dizziness or imbalance. No symptoms of sensory neuropathy. HEENT: No recent change in voice, vision or hearing. Resp: Asthma under control. . CVS: No exertional chest pain, PND or orthopnea. No extremity swelling/edema GI: No reflux, n/v, change in bowel habits. No abdominal pain, bloating or distension. No black or bloody stools. : No dysuria or gross hematuria. No symptoms of bladder outlet obstruction. Endo: No hot flashes. No polyuria or polydipsia. No heat or cold intolerance. Musculoskeletal: No bone, back, joint and muscular pain. Derm: No current rash. No history of jaundice. No diffuse pruritis. Heme: No unusual bleeding and unexplained bruising. Had bad bruise from most recent allergy injection. Psych: Normal mood. PHYSICAL EXAM: Vitals: Blood pressure 132/84, pulse 97, temperature 36.6 C (97.8 F), temperature source Temporal, height 154.9 cm (5' 1 ), weight 108.4 kg (239 lb), last menstrual period 03/06/2023, SpO2 97 %. Well-appearing and in no acute distress. EYES: Sclerae are anicteric bilaterally. LYMPHATIC: There is no palpable cervical, supraclavicular, axillary or inguinal adenopathy. RESPIRATORY: Inspiratory breath sounds are of normal intensity in all [place]. No rales, wheezes or rhonchi. CARDIOVASCULAR: Rhythm is regular. ABDOMEN: The abdomen is nondistended. No splenomegaly or hepatomegaly. No tenderness. Extremities: No swelling or edema. SKIN: No jaundice or rash. No petechiae. NEUROLOGIC: insurance adviser II-XII are grossly intact. No focal motor weakness. DTRs are symmetric and normal. MUSCULOSKELETAL: No joint swelling or tenderness. No muscle wasting. 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 She discontinued apixaban after 3 months. She is fully ambulatory at this time. Was on OCPs for about 5 years with no symptoms or diagnosis of VTE. 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 -Discussed with her and her that in the setting of heterozygous factor V Leiden, 1 episode of provoked DVT does not indicate need for indefinite anticoagulation. -Discussed testing for her daughter later if she is considering estrogen-based control. Plan: -Recheck factor VIII:C -She will be contacted with the results and any further testing that may be indicated. I spent a total of 40 minutes on the date of the service which included preparing to see the patient, [id number] patient care, completing clinical documentation, obtaining and/or reviewing separately obtained history, performing a medically appropriate examination, counseling and educating the patient/family/caregiver, ordering medications, tests, or procedures, communicating with other HCPs (not separately reported), and communicating results to the patient/family/caregiver. Shiv Bynum DO documented in this encounter [facility] 04-09-2023 Miscellaneous Notes Phoned patient and reviewed results and recommendations with her. Patient voiced understanding and reports she has an appointment with Dr Bynum on 04/15/23. ----- Message from Vincent Hinson MD sent at 04/09/2023 11:37 AM EDT ----- Patient found to have borderline factor VIII level with heterozygous factor V Leiden on her hypercoag workup. Other labs normal. Continue anticoagulation as ordered and f/u with hematology for further evaluation and recommendations. documented in this encounter [facility] 03-27-2023 Note HNO ID: [id number] Author: Vincent Hinson MD Service: ? Author Type: Physician Type: Progress Notes Filed: 03/30/2023 8:58 PM Note Text: Chief Complaint Patient presents with: Follow Up: Regarding eliquis and question regarding magnesium if ok to increase. SANFORD Pierce is a 47 year old female who presents here today for Above Complaints. Patient diagnosed with right distal DVT on 12/26 after having foot/ankle surgery the month prior. Has been on Eliquis BID for the last 3 months and pain in her foot and ankle have resolved. Denies pain in her calf, SOB, palpitations, or chest pain. Patient with heterozygous factor V leiden mutation without previous history of clotting. Patient states she does have family history of clotting with mother with Factor V Leiden mutation. Cousins and possibly Aunt with same condition. Past medical history, appointments, medications, allergies reviewed. Previous Medical History PAST MEDICAL HISTORY Diagnosis Date Abdominal pain, right lower quadrant Acute deep vein thrombosis (DVT) of tibial vein (HCC) 12/31/2022 DVT after surgery of right foot to remove infected hardware Allergic rhinitis, cause unspecified Burn of unspecified site, unspecified degree 3rd degee on feet Factor V Leiden mutation (HCC) 10/28/2017 Fatty liver disease, non-alcoholic 07/17/2010 Gastroesophageal reflux disease 09/22/2016 Hearing loss 07/02/2011 bilateral History of blood clots 12/2022 in right leg after surgery Lactose intolerance Sleep apnea Tinnitus 07/02/2011 Unspecified asthma(493.90) Dr. Keene Vitamin D deficiency 07/13/2010 Vocal cord dysfunction 05/14/2011 Previous Surgical History PAST SURGICAL HISTORY Procedure Laterality Date DELIVERY ONLY Two C/Sections COLONOSCOPY FLX DX W/COLLJ SPEC WHEN PFRMD 09/06/2008 FOOT SURGERY HX Right 12/01/2022 PAST SURGICAL HISTORY OF 05/2010 Right chino bunionectomy PAST SURGICAL HISTORY OF 10/15/2010 Vulvar Biopsy for VULVAR NEVUS SPLIT AGRFT F/S/N/H/F/G/M/D GT 1ST 100 CM/ THYROID BIOPSY US Left 11/09/2019 [facility]- repeat 3 years TUBAL LIGATION, 09/03/2004 Family History FAMILY HISTORY Problem Relation Age of Onset Heart Mother Bicuspbid valve Arthritis Mother Diabetes Father Hypertension Father Lipids Father other (rheumatoid arthritis) Sister None Brother Thyroid Maternal Grandmother Diabetes Maternal Grandmother Patient Allergies ALLERGIES Allergen Reactions Naproxen Hives She should strictly avoid use of naproxen. She may take aspirin and other NSAIDs as tolerated. Bactrim [Sulfametho* Ciprofloxacin Hives Current Medications Current Outpatient Medications on File Prior to Visit Medication Sig acidophilus-pectin, citrus 100 million cell-10 mg cap Take by mouth. albuterol HFA (VENTOLIN HFA) 90 mcg/actuation inhaler Inhale 2 Puffs as instructed every 4 hours as needed. apixaban (ELIQUIS) 5 mg tab(s) Take 1 tablet by mouth twice daily. BREO ELLIPTA 100-25 mcg/dose inhaler Inhale 1 Inhalation as instructed once daily. cetirizine (ZYRTEC) 10 mg tablet Take 10 mg by mouth once daily. Cholecalciferol, Vitamin D3, 25 mcg (1,000 unit) cap Take 2 capsules by mouth once daily. CPAP daily at bedtime. famotidine (PEPCID) 20 mg tablet Take 1 tablet by mouth twice daily as needed. fluticasone (FLONASE) 50 mcg/actuation nasal spray Use 2 Sprays in each nostril once daily. FOR ALLERGIC NASAL SX. lactase (LACTAID) 3,000 unit tablet Take 1 tablet by mouth three times daily with meals. Magnesium 250 mg tab Take 250 mg by mouth once daily. montelukast (SINGULAIR) 10 mg tablet Take 10 mg by mouth once daily. MULTIVITAMIN TAB Take one(1) tablet daily. nystatin (NYSTOP) powder Apply 1 application to affected area three times daily. olopatadine (PATANOL) 0.1 % ophthalmic solution soy isofla/blk cohosh/mag bark (ESTROVEN ORAL) Take by mouth. KEX-IP-IYOVAE 0.18/0.215/0.25 mg-25 mcg TAKE 1 TABLET BY MOUTH EVERY DAY Vitamin E, dl, acetate, (VITAMIN E) 400 unit capsule Take 400 Units by mouth once daily. 800mg daily No current facility-administered medications on file prior to visit. Social History Social History Tobacco Use Smoking status: Never Smokeless tobacco: Never Vaping Use Vaping Use: Never used Substance Use Topics Alcohol use: No Drug use: No Review of Symptoms REVIEW OF SYSTEMS See HPI EXAM: BP 124/76 Pulse 78 Resp 16 Wt 108 kg (238 lb) LMP 03/06/2023 SpO2 97% BMI 44.97 kg/m? General Appearance: Well appearing, alert, in no acute distress, well-hydrated, well nourished.. Skin: Skin color, texture, turgor normal, no suspicious rashes or lesions. Lungs: Lungs clear to auscultation. No wheezing, rhonchi, rales.. Heart: RRR without murmur, gallop, or rubs. No ectopy. Extremities: No deformities, edema, skin discoloration, clubbing or cyanosis. Good capillary refill (more content not included)... [facility] 03-27-2023 History of Present illness Narrative Chief Complaint Patient presents with: Follow Up: Regarding eliquis and question regarding magnesium if ok to increase. SANFORD Pierce is a 47 year old female who presents here today for Above Complaints. Patient diagnosed with right distal DVT on 12/26 after having foot/ankle surgery the month prior. Has been on Eliquis BID for the last 3 months and pain in her foot and ankle have resolved. Denies pain in her calf, SOB, palpitations, or chest pain. Patient with heterozygous factor V leiden mutation without previous history of clotting. Patient states she does have family history of clotting with mother with Factor V Leiden mutation. Cousins and possibly Aunt with same condition. Past medical history, appointments, medications, allergies reviewed. Previous Medical History PAST MEDICAL HISTORY Diagnosis Date Abdominal pain, right lower quadrant Acute deep vein thrombosis (DVT) of tibial vein (HCC) 12/31/2022 DVT after surgery of right foot to remove infected hardware Allergic rhinitis, cause unspecified Burn of unspecified site, unspecified degree 3rd degee on feet Factor V Leiden mutation (HCC) 10/28/2017 Fatty liver disease, non-alcoholic 07/17/2010 Gastroesophageal reflux disease 09/22/2016 Hearing loss 07/02/2011 bilateral History of blood clots 12/2022 in right leg after surgery Lactose intolerance Sleep apnea Tinnitus 07/02/2011 Unspecified asthma(493.90) Dr. Keene Vitamin D deficiency 07/13/2010 Vocal cord dysfunction 05/14/2011 Previous Surgical History PAST SURGICAL HISTORY Procedure Laterality Date DELIVERY ONLY Two C/Sections COLONOSCOPY FLX DX W/COLLJ SPEC WHEN PFRMD 09/06/2008 FOOT SURGERY HX Right 12/01/2022 PAST SURGICAL HISTORY OF 05/2010 Right chino bunionectomy PAST SURGICAL HISTORY OF 10/15/2010 Vulvar Biopsy for VULVAR NEVUS SPLIT AGRFT F/S/N/H/F/G/M/D GT 1ST 100 CM/</1 % THYROID BIOPSY US Left 11/09/2019 [facility] Em[facility]- repeat 3 years TUBAL LIGATION, 09/03/2004 Family History FAMILY HISTORY Problem Relation Age of Onset Heart Mother Bicuspbid valve Arthritis Mother Diabetes Father Hypertension Father Lipids Father other (rheumatoid arthritis) Sister None Brother Thyroid Maternal Grandmother Diabetes Maternal Grandmother Patient Allergies ALLERGIES Allergen Reactions Naproxen Hives She should strictly avoid use of naproxen. She may take aspirin and other NSAIDs as tolerated. Bactrim [Sulfametho* Ciprofloxacin Hives Current Medications Current Outpatient Medications on File Prior to Visit Medication Sig acidophilus-pectin, citrus 100 million cell-10 mg cap Take by mouth. albuterol HFA (VENTOLIN HFA) 90 mcg/actuation inhaler Inhale 2 Puffs as instructed every 4 hours as needed. apixaban (ELIQUIS) 5 mg tab(s) Take 1 tablet by mouth twice daily. BREO ELLIPTA 100-25 mcg/dose inhaler Inhale 1 Inhalation as instructed once daily. cetirizine (ZYRTEC) 10 mg tablet Take 10 mg by mouth once daily. Cholecalciferol, Vitamin D3, 25 mcg (1,000 unit) cap Take 2 capsules by mouth once daily. CPAP daily at bedtime. famotidine (PEPCID) 20 mg tablet Take 1 tablet by mouth twice daily as needed. fluticasone (FLONASE) 50 mcg/actuation nasal spray Use 2 Sprays in each nostril once daily. FOR ALLERGIC NASAL SX. lactase (LACTAID) 3,000 unit tablet Take 1 tablet by mouth three times daily with meals. Magnesium 250 mg tab Take 250 mg by mouth once daily. montelukast (SINGULAIR) 10 mg tablet Take 10 mg by mouth once daily. MULTIVITAMIN TAB Take one(1) tablet daily. nystatin (NYSTOP) powder Apply 1 application to affected area three times daily. olopatadine (PATANOL) 0.1 % ophthalmic solution soy isofla/blk cohosh/mag bark (ESTROVEN ORAL) Take by mouth. BGU-QN-HAFFHN 0.18/0.215/0.25 mg-25 mcg TAKE 1 TABLET BY MOUTH EVERY DAY Vitamin E, dl, acetate, (VITAMIN E) 400 unit capsule Take 400 Units by mouth once daily. 800mg daily No current facility-administered medications on file prior to visit. Social History Social History Tobacco Use Smoking status: Never Smokeless tobacco: Never Vaping Use Vaping Use: Never used Substance Use Topics Alcohol use: No Drug use: No Review of Symptoms REVIEW OF SYSTEMS See HPI EXAM: BP 124/76 Pulse 78 Resp 16 Wt 108 kg (238 lb) LMP 03/06/2023 SpO2 97% BMI 44.97 kg/m General Appearance: Well appearing, alert, in no acute distress, well-hydrated, well nourished.. Skin: Skin color, texture, turgor normal, no suspicious rashes or lesions. Lungs: Lungs clear to auscultation. No wheezing, rhonchi, rales.. Heart: RRR without murmur, gallop, or rubs. No ectopy. Extremities: No deformities, edema, skin discoloration, clubbing or cyanosis. Good capillary refill. Negative Hohmans sign. Health Maintenance List Hepatitis B Vaccine(1 of 3 - 3-dose series) Never done Spirometry Never done Hepatitis C Screening Never done HIV Screening Never done Pneumococcal Vaccine(2 - PCV) due on 10/11/2016 Covid-19 Vaccine(2022- season) due on 02/13/2023 Annual PCP Team Chronic Disease Visit due on 01/27/2024 Mammogram Screening due on 02/14/2024 Lipid Screening due on 10/27/2024 Colorectal Cancer Screening due on 02/02/2025 Diabetes Screening due on 02/24/2025 Pap Testing due on 01/16/2027 HPV Testing due on 01/16/2027 DTaP,Tdap,Td Vaccine(3 - Td or Tdap) due on 11/23/2030 Influenza Vaccine Completed Depression Assessment Completed ASSESSMENT/PLAN: 1. Acute deep vein thrombosis (DVT) of tibial vein of right lower extremity (HCC) - ICD9: 453.42, ICD10: I82.441 (primary diagnosis) Patient completed 3 months anticoagulation with resolution of symptoms. Will obtain hypercoag panel with history of factor V Leiden and refer to hematology for further workup and discussion of credit collections rep anticoagulation. Red flags for re-assessment reviewed with patient in detail. - HYPERCOAG DIAG PNL - CONSULT TO HEMATOLOGY 2. Factor V Leiden (HCC) - ICD9: 289.81, ICD10: D68.51 - HYPERCOAG DIAG PNL - CONSULT TO HEMATOLOGY Vincent Hinson MD documented in this encounter [facility] 03-14-2023 Note HNO ID: [id number] Author: Fred Akins MD Service: ? Author Type: Physician Type: Progress Notes Filed: 03/14/2023 8:51 AM Note Text: Patient presents with: Sinusitis: X 1 week HPI: Feeling sick for 1 week. Positive symptoms: Cough, Sinus pressure, Nasal Congestion, Rhinorrhea, Post nasal drainage, Negative symptoms: Fever, general Headache, earache OTC: flonase, tylenol sinus, delsym Has not had a COVID test. PAST MEDICAL HISTORY Diagnosis Date Abdominal pain, right lower quadrant Acute deep vein thrombosis (DVT) of tibial vein (HCC) 12/31/2022 DVT after surgery of right foot to remove infected hardware Allergic rhinitis, cause unspecified Burn of unspecified site, unspecified degree 3rd degee on feet Factor V Leiden mutation (HCC) 10/28/2017 Fatty liver disease, non-alcoholic 07/17/2010 Gastroesophageal reflux disease 09/22/2016 Hearing loss 07/02/2011 bilateral History of blood clots 12/2022 in right leg after surgery Lactose intolerance Sleep apnea Tinnitus 07/02/2011 Unspecified asthma(493.90) Dr. Keene Vitamin D deficiency 07/13/2010 Vocal cord dysfunction 05/14/2011 MEDICATIONS: Current Outpatient Medications Medication Sig apixaban (ELIQUIS) 5 mg tab(s) Take 1 tablet by mouth twice daily. cetirizine (ZYRTEC) 10 mg tablet Take 10 mg by mouth once daily. soy isofla/blk cohosh/mag bark (ESTROVEN ORAL) Take by mouth. Vitamin E, dl, acetate, (VITAMIN E) 400 unit capsule Take 400 Units by mouth once daily. 800mg daily Magnesium 250 mg tab Take 250 mg by mouth once daily. albuterol HFA (VENTOLIN HFA) 90 mcg/actuation inhaler Inhale 2 Puffs as instructed every 4 hours as needed. famotidine (PEPCID) 20 mg tablet Take 1 tablet by mouth twice daily as needed. ASS-WV-YBHFPF 0.18/0.215/0.25 mg-25 mcg TAKE 1 TABLET BY MOUTH EVERY DAY BREO ELLIPTA 100-25 mcg/dose inhaler Inhale 1 Inhalation as instructed once daily. lactase (LACTAID) 3,000 unit tablet Take 1 tablet by mouth three times daily with meals. nystatin (NYSTOP) powder Apply 1 application to affected area three times daily. montelukast (SINGULAIR) 10 mg tablet Take 10 mg by mouth once daily. CPAP daily at bedtime. olopatadine (PATANOL) 0.1 % ophthalmic solution Cholecalciferol, Vitamin D3, 25 mcg (1,000 unit) cap Take 2 capsules by mouth once daily. acidophilus-pectin, citrus 100 million cell-10 mg cap Take by mouth. fluticasone (FLONASE) 50 mcg/actuation nasal spray Use 2 Sprays in each nostril once daily. FOR ALLERGIC NASAL SX. MULTIVITAMIN TAB Take one(1) tablet daily. No current facility-administered medications for this visit. ALLERGIES: ALLERGIES Allergen Reactions Naproxen Hives She should strictly avoid use of naproxen. She may take aspirin and other NSAIDs as tolerated. Bactrim [Sulfametho* Ciprofloxacin Hives VITALS: BP 154/94 Pulse 89 Temp 36.7 ?C (98.1 ?F) (Right Tympanic) Resp 16 Wt 109 kg (240 lb 3.2 oz) LMP 03/06/2023 SpO2 98% BMI 45.39 kg/m? PHYSICAL EXAM: GEN: Pleasant, in no acute distress. HEENT: PERRL, EOMI, conjunctiva clear Ears: Hearing aids, canals clear. TMs without erythema, bulge, or effusion Sinuses: pressure over sinuses Throat: moist mucous membranes, no erythema, no exudate Neck: supple, no thyromegaly, no lymphadenopathy HEART: regular rate and rhythm, no murmurs LUNGS: clear to auscultation, no wheezes or crackles, no increased WOB ASSESSMENT/PLAN: 1. Acute non-recurrent sinusitis, unspecified location - ICD9: 461.9, ICD10: J01.90 - AMOXICILLIN 875 MG-POTASSIUM CLAVULANATE 125 MG TABLET Continue allergy/sinus medications. Fred Akins MD [facility] 02-17-2023 Miscellaneous Notes February 17, 2023 PID: [id number] Zahra Pierce [address] [place] [phone] Dear Ms. Pierce, We are pleased to inform you that the results of your recent breast imaging exam on 02/13/2023 are normal. Early detection of cancer is very important. We also understand recommendations regarding breast cancer screening are controversial. Please discuss with your primary care provider which strategy is best for you and whether a mammogram is right for you. Your imaging studies and report will be kept on file at [facility] as part of your permanent medical record and are available for your continuing care. Thank you for allowing us to help in meeting your health care needs. Sincerely, Dr. Ferris Interpreting Radiologist [facility] (Normal over 40) documented in this encounter [facility] 02-13-2023 Note HNO ID: [id number] Author: Sharyn Bazan Mammo Tech Service: ? Author Type: Drafter Seismograph Type: Progress Notes Filed: 02/13/2023 11:44 AM Note Text: Radiology Service Progress Note PATIENT NAME: Zahra Pierce DATE OF SERVICE: February 13, 2023 TIME: 11:19 AM PATIENT IDENTITY VERIFICATION COMPLETED USING TWO (2) IDENTIFIERS: Name and Date of confirmed by patient verbally. FALL SCREENING: Has the patient had 2 falls in the last year or 1 fall with injury or currently using an Ambulatory Assistive Device (Walker, Cane, Wheelchair, Crutches, etc.)? No PATIENT GENDER DATA: Female. status: : No status: NO. PATIENT RELEVANT IMPLANT DATA REVIEWED: Not Applicable RADIOLOGY DEPARTMENT: Mammography PERIPHERAL IV DATA: Not applicable SIGNED BY: Merrick Villareal February 13, 2023 11:19 AM [facility] 02-13-2023 History of Present illness Narrative Radiology Service Progress Note PATIENT NAME: Zahra Pierce DATE OF SERVICE: February 13, 2023 TIME: 11:19 AM PATIENT IDENTITY VERIFICATION COMPLETED USING TWO (2) IDENTIFIERS: Name and Date of confirmed by patient verbally. FALL SCREENING: Has the patient had 2 falls in the last year or 1 fall with injury or currently using an Ambulatory Assistive Device (Walker, Cane, Wheelchair, Crutches, etc.)? No PATIENT GENDER DATA: Female. status: : No status: NO. PATIENT RELEVANT IMPLANT DATA REVIEWED: Not Applicable RADIOLOGY DEPARTMENT: Mammography PERIPHERAL IV DATA: Not applicable SIGNED BY: Merrick Villareal February 13, 2023 11:19 AM documented in this encounter [facility] 02-11-2023 Miscellaneous Notes Attempted to contact patient. No answer. Detailed message left on pt's identified VM, of provider's message below. Gay Bird RN (COPIED) Vincent Hinson MD (9:54 AM) Her appointment is too soon. She was started on anticoagulation on 12/26 and will need to remain on it for at least 3 months. Recommend OV around March 28 instead. Please assist her in rescheduling. May keep February OV if she has any new concerns that need addressed. Her appointment is too soon. She was started on anticoagulation on 12/26 and will need to remain on it for at least 3 months. Recommend OV around March 28 instead. Please assist her in rescheduling. May keep February OV if she has any new concerns that need addressed. documented in this encounter [facility] 01-26-2023 Note HNO ID: [id number] Author: Jessie Crooks APRN.[employer] Service: ? Author Type: Nurse Practitioner Type: Progress Notes Filed: 01/26/2023 1:29 PM Note Text: 01/26/2023 Patient presents with: Edema: To right ankle and foot; had DVT mid December to RLE SUBJECTIVE: This is a 47 year old that is here today for Above Complaints. Seen on 12/31/2022 for follow-up for ER visit for right ankle and foot swelling. Diagnosed with DVT and placed on Eliquis. Having some pain in her ankle and swelling when up on her feet, which improves with rest. Also at times has pressure from ankle up her leg. [place] has been walking more than she has. Eating food at [facility] once a day. Taking eliquis as prescribed. Denies new foot/ankle/leg swelling, erythema, SOB, dyspnea or chest pain PAST MEDICAL HISTORY Diagnosis Date Abdominal pain, right lower quadrant Acute deep vein thrombosis (DVT) of tibial vein (HCC) 12/31/2022 DVT after surgery of right foot to remove infected hardware Allergic rhinitis, cause unspecified Burn of unspecified site, unspecified degree 3rd degee on feet Factor V Leiden mutation (HCC) 10/28/2017 Fatty liver disease, non-alcoholic 07/17/2010 Gastroesophageal reflux disease 09/22/2016 Hearing loss 07/02/2011 bilateral History of blood clots 12/2022 in right leg after surgery Lactose intolerance Sleep apnea Tinnitus 07/02/2011 Unspecified asthma(493.90) Dr. Keene Vitamin D deficiency 07/13/2010 Vocal cord dysfunction 05/14/2011 ALLERGIES Naproxen, Bactrim [Sulfamethoxazole-Trimethoprim], and Ciprofloxacin MEDICATIONS Current Outpatient Medications Medication Sig apixaban (ELIQUIS) 5 mg tab(s) Take 1 tablet by mouth twice daily. cetirizine (ZYRTEC) 10 mg tablet Take 10 mg by mouth once daily. soy isofla/blk cohosh/mag bark (ESTROVEN ORAL) Take by mouth. Vitamin E, dl, acetate, (VITAMIN E) 400 unit capsule Take 400 Units by mouth once daily. 800mg daily Magnesium 250 mg tab Take 250 mg by mouth once daily. albuterol HFA (VENTOLIN HFA) 90 mcg/actuation inhaler Inhale 2 Puffs as instructed every 4 hours as needed. famotidine (PEPCID) 20 mg tablet Take 1 tablet by mouth twice daily as needed. omeprazole (PRILOSEC) 20 mg capsule TAKE TWO CAPSULES BY MOUTH ONCE DAILY BEFORE BREAKFAST [id number] 0.18/0.215/0.25 mg-25 mcg TAKE 1 TABLET BY MOUTH EVERY DAY cyclobenzaprine (FLEXERIL) 10 mg tablet 10mg by mouth in evening as needed for muscle spasm BREO ELLIPTA 100-25 mcg/dose inhaler Inhale 1 Inhalation as instructed once daily. lactase (LACTAID) 3,000 unit tablet Take 1 tablet by mouth three times daily with meals. nystatin (NYSTOP) powder Apply 1 application to affected area three times daily. montelukast (SINGULAIR) 10 mg tablet Take 10 mg by mouth once daily. CPAP daily at bedtime. olopatadine (PATANOL) 0.1 % ophthalmic solution Cholecalciferol, Vitamin D3, 25 mcg (1,000 unit) cap Take 2 capsules by mouth once daily. acidophilus-pectin, citrus 100 million cell-10 mg cap Take by mouth. fluticasone (FLONASE) 50 mcg/actuation nasal spray Use 2 Sprays in each nostril once daily. FOR ALLERGIC NASAL SX. MULTIVITAMIN TAB Take one(1) tablet daily. No current facility-administered medications for this visit. Medications and allergies reviewed by this provider. SOCIAL HISTORY Social History Tobacco Use Smoking status: Never Smokeless tobacco: Never Vaping Use Vaping Use: Never used Substance Use Topics Alcohol use: No Drug use: No REVIEW OF SYSTEMS All other reviewed and negative other than HPI. OBJECTIVE: BP 118/82 Pulse 84 Resp 18 Wt 112.1 kg (247 lb 3.2 oz) LMP 12/13/2022 (Exact Date) SpO2 97% BMI 46.71 kg/m? . Vital signs reviewed by this provider. APPEARANCE Well appearing, alert, in no acute distress, well-hydrated, well nourished. EXTREMITIES Extremities normal, No deformities, No skin discoloration, No edema, and Normal pulses bilaterally. Cap refill WNL. No calf tenderness or palpable cords. Negative Rodolfo's HEPATITIS B(1 of 3 - 3-dose series) Never done SPIROMETRY Never done HEPATITIS C SCREENING Never done HIV SCREENING Never done PNEUMOCOCCAL(2 - PCV) due on 10/11/2016 MAMMOGRAM due on 01/31/2023 INFLUENZA(1) due on 02/13/2023 ANNUAL PCP TEAM CHRONIC DISEASE VISIT due on 01/01/2024 LIPID SCREEN due on 10/27/2024 COLORECTAL CANCER SCREENING due on 02/02/2025 DIABETES SCREEN due on 02/24/2025 PAP TESTING due on 01/16/2027 HPV TESTING due on 01/16/2027 DTAP,TDAP,TD(3 - Td or Tdap) due on 11/23/2030 DEPRESSION ASSESSMENT Completed COVID-19 VACCINE Completed ASSESSMENT/PLAN: 1. Ankle swelling, unspecified laterality - ICD9: 719.07, ICD10: M25.473 (primary diagnosis) - discussed low salt diet - elevate legs when sitting - continue eliquis as prescribed - no red flag symptoms or exam findings - red flag symptoms discussed, verbalizes unders (more content not included)... [facility] 01-26-2023 Instructions Jessie Crooks APRN.KASSY - 01/26/2023 12:32 PM EDT Follow-up as scheduled in February Continue with the eliquis as prescribed documented in this encounter [facility] 01-26-2023 History of Present illness Narrative 01/26/2023 Patient presents with: Edema: To right ankle and foot; had DVT mid December to RLE SUBJECTIVE: This is a 47 year old that is here today for Above Complaints. Seen on 12/31/2022 for follow-up for ER visit for right ankle and foot swelling. Diagnosed with DVT and placed on Eliquis. Having some pain in her ankle and swelling when up on her feet, which improves with rest. Also at times has pressure from ankle up her leg. [place] been walking more than she has. Eating food at fair once a day. Taking eliquis as prescribed. Denies new foot/ankle/leg swelling, erythema, SOB, dyspnea or chest pain PAST MEDICAL HISTORY Diagnosis Date Abdominal pain, right lower quadrant Acute deep vein thrombosis (DVT) of tibial vein (HCC) 12/31/2022 DVT after surgery of right foot to remove infected hardware Allergic rhinitis, cause unspecified Burn of unspecified site, unspecified degree 3rd degee on feet Factor V Leiden mutation (HCC) 10/28/2017 Fatty liver disease, non-alcoholic 07/17/2010 Gastroesophageal reflux disease 09/22/2016 Hearing loss 07/02/2011 bilateral History of blood clots 12/2022 in right leg after surgery Lactose intolerance Sleep apnea Tinnitus 07/02/2011 Unspecified asthma(493.90) Dr. Keene Vitamin D deficiency 07/13/2010 Vocal cord dysfunction 05/14/2011 ALLERGIES Naproxen, Bactrim [Sulfamethoxazole-Trimethoprim], and Ciprofloxacin MEDICATIONS Current Outpatient Medications Medication Sig apixaban (ELIQUIS) 5 mg tab(s) Take 1 tablet by mouth twice daily. cetirizine (ZYRTEC) 10 mg tablet Take 10 mg by mouth once daily. soy isofla/blk cohosh/mag bark (ESTROVEN ORAL) Take by mouth. Vitamin E, dl, acetate, (VITAMIN E) 400 unit capsule Take 400 Units by mouth once daily. 800mg daily Magnesium 250 mg tab Take 250 mg by mouth once daily. albuterol HFA (VENTOLIN HFA) 90 mcg/actuation inhaler Inhale 2 Puffs as instructed every 4 hours as needed. famotidine (PEPCID) 20 mg tablet Take 1 tablet by mouth twice daily as needed. omeprazole (PRILOSEC) 20 mg capsule TAKE TWO CAPSULES BY MOUTH ONCE DAILY BEFORE BREAKFAST [id number] 0.18/0.215/0.25 mg-25 mcg TAKE 1 TABLET BY MOUTH EVERY DAY cyclobenzaprine (FLEXERIL) 10 mg tablet 10mg by mouth in evening as needed for muscle spasm BREO ELLIPTA 100-25 mcg/dose inhaler Inhale 1 Inhalation as instructed once daily. lactase (LACTAID) 3,000 unit tablet Take 1 tablet by mouth three times daily with meals. nystatin (NYSTOP) powder Apply 1 application to affected area three times daily. montelukast (SINGULAIR) 10 mg tablet Take 10 mg by mouth once daily. CPAP daily at bedtime. olopatadine (PATANOL) 0.1 % ophthalmic solution Cholecalciferol, Vitamin D3, 25 mcg (1,000 unit) cap Take 2 capsules by mouth once daily. acidophilus-pectin, citrus 100 million cell-10 mg cap Take by mouth. fluticasone (FLONASE) 50 mcg/actuation nasal spray Use 2 Sprays in each nostril once daily. FOR ALLERGIC NASAL SX. MULTIVITAMIN TAB Take one(1) tablet daily. No current facility-administered medications for this visit. Medications and allergies reviewed by this provider. SOCIAL HISTORY Social History Tobacco Use Smoking status: Never Smokeless tobacco: Never Vaping Use Vaping Use: Never used Substance Use Topics Alcohol use: No Drug use: No REVIEW OF SYSTEMS All other reviewed and negative other than HPI. OBJECTIVE: BP 118/82 Pulse 84 Resp 18 Wt 112.1 kg (247 lb 3.2 oz) LMP 12/13/2022 (Exact Date) SpO2 97% BMI 46.71 kg/m . Vital signs reviewed by this provider. APPEARANCE Well appearing, alert, in no acute distress, well-hydrated, well nourished. EXTREMITIES Extremities normal, No deformities, No skin discoloration, No edema, and Normal pulses bilaterally. Cap refill WNL. No calf tenderness or palpable cords. Negative Rodolfo's HEPATITIS B(1 of 3 - 3-dose series) Never done SPIROMETRY Never done HEPATITIS C SCREENING Never done HIV SCREENING Never done PNEUMOCOCCAL(2 - PCV) due on 10/11/2016 MAMMOGRAM due on 01/31/2023 INFLUENZA(1) due on 02/13/2023 ANNUAL PCP TEAM CHRONIC DISEASE VISIT due on 01/01/2024 LIPID SCREEN due on 10/27/2024 COLORECTAL CANCER SCREENING due on 02/02/2025 DIABETES SCREEN due on 02/24/2025 PAP TESTING due on 01/16/2027 HPV TESTING due on 01/16/2027 DTAP,TDAP,TD(3 - Td or Tdap) due on 11/23/2030 DEPRESSION ASSESSMENT Completed COVID-19 VACCINE Completed ASSESSMENT/PLAN: 1. Ankle swelling, unspecified laterality - ICD9: 719.07, ICD10: M25.473 (primary diagnosis) - discussed low salt diet - elevate legs when sitting - continue eliquis as prescribed - no red flag symptoms or exam findings - red flag symptoms discussed, verbalizes understanding - follow-up in February as scheduled to ER with red flag symptoms 2. Acute deep vein thrombosis (DVT) of tibial vein of right lower extremity (HCC) - ICD9: 453.42, ICD10: I82.441 - plan as in #1 3. Foot swelling - ICD9: 729.81, ICD10: M79.89 - plan as in #1 Jessie Crooks APRN.[employer] Prescription instructions reviewed with patient as applicable. Patient advised if symptoms do not improve or if symptoms worsen sooner, to contact their primary care physician. Potential red flag symptoms discussed with the patient. Reviewed appropriate action plan to take if red flag symptoms occur. Patient agreeable to treatment plan. I spent a total of 20 minutes on the date of the service which included preparing to see the patient, [id number] patient care, completing clinical documentation, obtaining and/or reviewing separately obtained history, performing a medically appropriate examination, counseling and educating the patient/family/caregiver, and ordering medications, tests, or procedures. documented in this encounter [facility] 01-16-2023 Note HNO ID: [id number] Author: Brianna Allan MD Service: ? Author Type: Physician Type: Progress Notes Filed: 01/16/2023 9:32 AM Note Text: Zahra is a 47 year old who presents for an annual gynecologic exam without complaints. Is late for this months menses. Is on Eloquis for VTE after foot surgery. Menses: cycles every 28-30 days and 5 days of flow. 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: Sexual Activity: Yes; Male; TUBAL OCCLUSION Contraception: Surgical PAST MEDICAL HISTORY Diagnosis Date Abdominal pain, right lower quadrant Acute deep vein thrombosis (DVT) of tibial vein (HCC) 12/31/2022 DVT after surgery of right foot to remove infected hardware Allergic rhinitis, cause unspecified Burn of unspecified site, unspecified degree 3rd degee on feet Factor V Leiden mutation (HCC) 10/28/2017 Fatty liver disease, non-alcoholic 07/17/2010 Gastroesophageal reflux disease 09/22/2016 Hearing loss 07/02/2011 bilateral History of blood clots 12/2022 in right leg after surgery Lactose intolerance Sleep apnea Tinnitus 07/02/2011 Unspecified asthma(493.90) Dr. Keene Vitamin D deficiency 07/13/2010 Vocal cord dysfunction 05/14/2011 PAST SURGICAL HISTORY Procedure Laterality Date DELIVERY ONLY Two C/Sections COLONOSCOPY FLX DX W/COLLJ SPEC WHEN PFRMD 09/06/2008 FOOT SURGERY HX Right 12/01/2022 PAST SURGICAL HISTORY OF 05/2010 Right chino bunionectomy PAST SURGICAL HISTORY OF 10/15/2010 Vulvar Biopsy for VULVAR NEVUS SPLIT AGRFT F/S/N/H/F/G/M/D GT 1ST 100 CM/ THYROID BIOPSY US Left 11/09/2019 [facility]- repeat 3 years TUBAL LIGATION, 09/03/2004 FAMILY HISTORY Problem Relation Age of Onset Heart Mother Bicuspbid valve Arthritis Mother Diabetes Father Hypertension Father Lipids Father other (rheumatoid arthritis) Sister None Brother Thyroid Maternal Grandmother Diabetes Maternal Grandmother SOCIAL HISTORY Social History Tobacco Use Smoking status: Never Smokeless tobacco: Never Vaping Use Vaping Use: Never used Substance Use Topics Alcohol use: No Drug use: No REVIEW OF SYSTEMS Abdomen: No abdominal pain, nausea, vomiting, diarrhea, or constipation. No bloating, early satiety, indigestion, or increased flatulence. Bladder: No dysuria, gross hematuria, urinary frequency, urinary urgency, or incontinence. Breast: No breast lumps, nipple d/c, overlying skin changes, redness or skin retraction. Allergies and current medication updated:Yes EXAM: BP 122/84 Ht 5' 1 (1.55m) Wt 243 lb (110.2kg) LMP 12/13/2022 BMI 45.94 kg/(m2). GENERAL: pleasant, female in no apparent distress HEENT: Normocephalic, atraumatic, mucus membranes moist, and no lesions NECK: Supple, full range of motion, no adenopathy, and thyroid normal DERMATOLOGY: Normal, without lesions, non-icteric, and non-hirsute BREAST: soft, non-tender, symmetric, no dominant mass, normal nipple-areolar complex, no lymphadenopathy, and no nipple discharge CHEST: Normal inspiratory effort ABDOMEN: soft, non-tender, and no masses PELVIC: external genitalia normal, normal Bartholin's glands, urethra, [place]'s glands, no vulvar lesions, no cervical lesions, good vaginal support, physiologic discharge present, normal appearing perineal body and perianal region BIMANUAL: uterus normal size, shape and consistency, no adnexal masses, non-tender, and limited by habitus RECTOVAGINAL: deferred. NEURO: alert and oriented x3,exam grossly non-focal EXTREMITIES: normal ASSESSMENT/PLAN: 1) Health maintenance: Pap/HPV up to date. Mammogram up to date . colon ca screening up to date 2) Contraception: tubal sterilization. Contraceptive options reviewed and information provided. 3) STD screening: Declined STD check. 4) Follow up one year or sooner as needed missed last menses- still on ocps, when stops eloquis will need to stop OCPS and change to cylic provera Brianna Allan MD [facility] 01-16-2023 Miscellaneous Notes Addended by: BRIANNA ALLAN on: 01/16/2023 09:32 AM Modules accepted: Orders documented in this encounter [facility] 01-16-2023 History of Present illness Narrative Zahra is a 47 year old who presents for an annual gynecologic exam without complaints. Is late for this months menses. Is on Eloquis for VTE after foot surgery. Menses: cycles every 28-30 days and 5 days of flow. 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: Sexual Activity: Yes; Male; TUBAL OCCLUSION Contraception: Surgical PAST MEDICAL HISTORY Diagnosis Date Abdominal pain, right lower quadrant Acute deep vein thrombosis (DVT) of tibial vein (HCC) 12/31/2022 DVT after surgery of right foot to remove infected hardware Allergic rhinitis, cause unspecified Burn of unspecified site, unspecified degree 3rd degee on feet Factor V Leiden mutation (HCC) 10/28/2017 Fatty liver disease, non-alcoholic 07/17/2010 Gastroesophageal reflux disease 09/22/2016 Hearing loss 07/02/2011 bilateral History of blood clots 12/2022 in right leg after surgery Lactose intolerance Sleep apnea Tinnitus 07/02/2011 Unspecified asthma(493.90) Dr. Keene Vitamin D deficiency 07/13/2010 Vocal cord dysfunction 05/14/2011 PAST SURGICAL HISTORY Procedure Laterality Date DELIVERY ONLY Two C/Sections COLONOSCOPY FLX DX W/COLLJ SPEC WHEN PFRMD 09/06/2008 FOOT SURGERY HX Right 12/01/2022 PAST SURGICAL HISTORY OF 05/2010 Right chino bunionectomy PAST SURGICAL HISTORY OF 10/15/2010 Vulvar Biopsy for VULVAR NEVUS SPLIT AGRFT F/S/N/H/F/G/M/D GT 1ST 100 CM/</1 % THYROID BIOPSY US Left 11/09/2019 [facility]- repeat 3 years TUBAL LIGATION, 09/03/2004 FAMILY HISTORY Problem Relation Age of Onset Heart Mother Bicuspbid valve Arthritis Mother Diabetes Father Hypertension Father Lipids Father other (rheumatoid arthritis) Sister None Brother Thyroid Maternal Grandmother Diabetes Maternal Grandmother SOCIAL HISTORY Social History Tobacco Use Smoking status: Never Smokeless tobacco: Never Vaping Use Vaping Use: Never used Substance Use Topics Alcohol use: No Drug use: No REVIEW OF SYSTEMS Abdomen: No abdominal pain, nausea, vomiting, diarrhea, or constipation. No bloating, early satiety, indigestion, or increased flatulence. Bladder: No dysuria, gross hematuria, urinary frequency, urinary urgency, or incontinence. Breast: No breast lumps, nipple d/c, overlying skin changes, redness or skin retraction. Allergies and current medication updated:Yes EXAM: BP 122/84 Ht 5' 1 (1.55m) Wt 243 lb (110.2kg) LMP 12/13/2022 BMI 45.94 kg/(m^2). GENERAL: pleasant, female in no apparent distress HEENT: Normocephalic, atraumatic, mucus membranes moist, and no lesions NECK: Supple, full range of motion, no adenopathy, and thyroid normal DERMATOLOGY: Normal, without lesions, non-icteric, and non-hirsute BREAST: soft, non-tender, symmetric, no dominant mass, normal nipple-areolar complex, no lymphadenopathy, and no nipple discharge CHEST: Normal inspiratory effort ABDOMEN: soft, non-tender, and no masses PELVIC: external genitalia normal, normal Bartholin's glands, urethra, [place]'s glands, no vulvar lesions, no cervical lesions, good vaginal support, physiologic discharge present, normal appearing perineal body and perianal region BIMANUAL: uterus normal size, shape and consistency, no adnexal masses, non-tender, and limited by habitus RECTOVAGINAL: deferred. NEURO: alert and oriented x3,exam grossly non-focal EXTREMITIES: normal ASSESSMENT/PLAN: 1) Health maintenance: Pap/HPV up to date. Mammogram up to date . colon ca screening up to date 2) Contraception: tubal sterilization. Contraceptive options reviewed and information provided. 3) STD screening: Declined STD check. 4) Follow up one year or sooner as needed missed last menses- still on ocps, when stops eloquis will need to stop OCPS and change to cylic provera Brianna Allan MD documented in this encounter [facility] 01-05-2023 Miscellaneous Notes Thanks. Jessie Crooks APRN.CNP Patient called and notified. Voices understanding. Appointment scheduled for Feb 20, the week prior to 3 months on eliquis. Joslyn Pace LPN Please let patient know I spoke with Dr. Hinson and he said three months for the eliquis. Have her seen in the office prior to stopping. Jessie Crooks APRN.CNP documented in this encounter [facility] 12-31-2022 Note HNO ID: [id number] Author: Jessie Crooks APRN.[employer] Service: ? Author Type: Nurse Practitioner Type: Progress Notes Filed: 12/31/2022 3:21 PM Note Text: 12/31/2022 Patient presents with: ER F/U: 2 small DVT to right lower leg SUBJECTIVE: This is a 47 year old, accompanied by , that is here today for Above Complaints.. HOSPITAL/ER FOLLOW UP: Reason for visit: right ankle and foot swelling Which facility: [facility] Date of visit: 12/26/2022 Diagnosis: DVT Testing done: US leg Treatment given: eliquis Taking eliquis as prescribed without side effects. No hx of blood clots. Had surgery in November to right foot to remove painful hardware. Denies SOB, dyspnea or chest pain. Swelling has decreased in ankle and foot. No pain at this time ER records reviewed PAST MEDICAL HISTORY Diagnosis Date Abdominal pain, right lower quadrant Allergic rhinitis, cause unspecified Burn of unspecified site, unspecified degree 3rd degee on feet Factor V Leiden mutation (HCC) 10/28/2017 Fatty liver disease, non-alcoholic 07/17/2010 Gastroesophageal reflux disease 09/22/2016 Hearing loss 07/02/2011 bilateral Lactose intolerance Sleep apnea Tinnitus 07/02/2011 Unspecified asthma(493.90) Dr. Keene Vitamin D deficiency 07/13/2010 Vocal cord dysfunction 05/14/2011 ALLERGIES Naproxen, Bactrim [Sulfamethoxazole-Trimethoprim], and Ciprofloxacin MEDICATIONS Current Outpatient Medications Medication Sig cetirizine (ZYRTEC) 10 mg tablet Take 10 mg by mouth once daily. soy isofla/blk cohosh/mag bark (ESTROVEN ORAL) Take by mouth. Vitamin E, dl, acetate, (VITAMIN E) 400 unit capsule Take 400 Units by mouth once daily. 800mg daily Magnesium 250 mg tab Take 250 mg by mouth once daily. albuterol HFA (VENTOLIN HFA) 90 mcg/actuation inhaler Inhale 2 Puffs as instructed every 4 hours as needed. famotidine (PEPCID) 20 mg tablet Take 1 tablet by mouth twice daily as needed. omeprazole (PRILOSEC) 20 mg capsule TAKE TWO CAPSULES BY MOUTH ONCE DAILY BEFORE BREAKFAST [id number] 0.18/0.215/0.25 mg-25 mcg TAKE 1 TABLET BY MOUTH EVERY DAY cyclobenzaprine (FLEXERIL) 10 mg tablet 10mg by mouth in evening as needed for muscle spasm BREO ELLIPTA 100-25 mcg/dose inhaler Inhale 1 Inhalation as instructed once daily. lactase (LACTAID) 3,000 unit tablet Take 1 tablet by mouth three times daily with meals. nystatin (NYSTOP) powder Apply 1 application to affected area three times daily. montelukast (SINGULAIR) 10 mg tablet Take 10 mg by mouth once daily. CPAP daily at bedtime. olopatadine (PATANOL) 0.1 % ophthalmic solution Cholecalciferol, Vitamin D3, 25 mcg (1,000 unit) cap Take 2 capsules by mouth once daily. acidophilus-pectin, citrus 100 million cell-10 mg cap Take by mouth. fluticasone (FLONASE) 50 mcg/actuation nasal spray Use 2 Sprays in each nostril once daily. FOR ALLERGIC NASAL SX. MULTIVITAMIN TAB Take one(1) tablet daily. No current facility-administered medications for this visit. Medications and allergies reviewed by this provider. SOCIAL HISTORY Social History Tobacco Use Smoking status: Never Smokeless tobacco: Never Vaping Use Vaping Use: Never used Substance Use Topics Alcohol use: No Drug use: No REVIEW OF SYSTEMS All other reviewed and negative other than HPI. OBJECTIVE: BP 122/66 Pulse 87 Resp 16 Wt 108.4 kg (239 lb) LMP 11/17/2022 (Exact Date) SpO2 96% BMI 45.16 kg/m? . Vital signs reviewed by this provider. APPEARANCE Well appearing, alert, in no acute distress, well-hydrated, well nourished. EYES , conjunctiva and sclera normal. HEART RRR with normal S1 and S2, no murmurs, no gallops, no JVD appreciated LUNG clear to auscultation. No wheezes, rhonchi or rales EXTREMITIES Extremities normal, No deformities, No skin discoloration, and No edema. Right foot and ankle without swelling. 2+ pedal pulse with cap refill WNL SKIN Skin color, texture, turgor normal, no suspicious rashes or lesions HEPATITIS B(1 of 3 - 3-dose series) Never done SPIROMETRY Never done HEPATITIS C SCREENING Never done HIV SCREENING Never done PNEUMOCOCCAL(2 - PCV) due on 10/11/2016 MAMMOGRAM due on 01/31/2023 INFLUENZA(1) due on 02/13/2023 ANNUAL PCP TEAM CHRONIC DISEASE VISIT due on 09/25/2023 LIPID SCREEN due on 10/27/2024 COLORECTAL CANCER SCREENING due on 02/02/2025 DIABETES SCREEN due on 02/24/2025 PAP TESTING due on 01/16/2027 HPV TESTING due on 01/16/2027 DTAP,TDAP,TD(3 - Td or Tdap) due on 11/23/2030 DEPRESSION ASSESSMENT Completed COVID-19 VACCINE Completed ASSESSMENT/PLAN: 1. Acute deep vein thrombosis (DVT) of tibial vein of right lower extremity (HCC) - ICD9: 453.42, ICD10: I82.441 - would consider this a provoked DVT - no red flag symptoms or exam findings - red flag symptoms discussed - discussed risks while taking blood thinner, verbalizes understanding - per patient she reports ER told her she woul (more content not included)... [facility] 12-31-2022 Instructions MargauxlogJessie sandoval APRN.CNP - 12/31/2022 1:32 PM EDT Follow-up in 3 months documented in this encounter [facility] 12-31-2022 History of Present illness Narrative 12/31/2022 Patient presents with: ER F/U: 2 small DVT to right lower leg SUBJECTIVE: This is a 47 year old, accompanied by , that is here today for Above Complaints.. HOSPITAL/ER FOLLOW UP: Reason for visit: right ankle and foot swelling Which facility: [facility] Date of visit: 12/26/2022 Diagnosis: DVT Testing done: US leg Treatment given: eliquis Taking eliquis as prescribed without side effects. No hx of blood clots. Had surgery in November to right foot to remove painful hardware. Denies SOB, dyspnea or chest pain. Swelling has decreased in ankle and foot. No pain at this time ER records reviewed PAST MEDICAL HISTORY Diagnosis Date Abdominal pain, right lower quadrant Allergic rhinitis, cause unspecified Burn of unspecified site, unspecified degree 3rd degee on feet Factor V Leiden mutation (HCC) 10/28/2017 Fatty liver disease, non-alcoholic 07/17/2010 Gastroesophageal reflux disease 09/22/2016 Hearing loss 07/02/2011 bilateral Lactose intolerance Sleep apnea Tinnitus 07/02/2011 Unspecified asthma(493.90) Dr. Keene Vitamin D deficiency 07/13/2010 Vocal cord dysfunction 05/14/2011 ALLERGIES Naproxen, Bactrim [Sulfamethoxazole-Trimethoprim], and Ciprofloxacin MEDICATIONS Current Outpatient Medications Medication Sig cetirizine (ZYRTEC) 10 mg tablet Take 10 mg by mouth once daily. soy isofla/blk cohosh/mag bark (ESTROVEN ORAL) Take by mouth. Vitamin E, dl, acetate, (VITAMIN E) 400 unit capsule Take 400 Units by mouth once daily. 800mg daily Magnesium 250 mg tab Take 250 mg by mouth once daily. albuterol HFA (VENTOLIN HFA) 90 mcg/actuation inhaler Inhale 2 Puffs as instructed every 4 hours as needed. famotidine (PEPCID) 20 mg tablet Take 1 tablet by mouth twice daily as needed. omeprazole (PRILOSEC) 20 mg capsule TAKE TWO CAPSULES BY MOUTH ONCE DAILY BEFORE BREAKFAST [id number] 0.18/0.215/0.25 mg-25 mcg TAKE 1 TABLET BY MOUTH EVERY DAY cyclobenzaprine (FLEXERIL) 10 mg tablet 10mg by mouth in evening as needed for muscle spasm BREO ELLIPTA 100-25 mcg/dose inhaler Inhale 1 Inhalation as instructed once daily. lactase (LACTAID) 3,000 unit tablet Take 1 tablet by mouth three times daily with meals. nystatin (NYSTOP) powder Apply 1 application to affected area three times daily. montelukast (SINGULAIR) 10 mg tablet Take 10 mg by mouth once daily. CPAP daily at bedtime. olopatadine (PATANOL) 0.1 % ophthalmic solution Cholecalciferol, Vitamin D3, 25 mcg (1,000 unit) cap Take 2 capsules by mouth once daily. acidophilus-pectin, citrus 100 million cell-10 mg cap Take by mouth. fluticasone (FLONASE) 50 mcg/actuation nasal spray Use 2 Sprays in each nostril once daily. FOR ALLERGIC NASAL SX. MULTIVITAMIN TAB Take one(1) tablet daily. No current facility-administered medications for this visit. Medications and allergies reviewed by this provider. SOCIAL HISTORY Social History Tobacco Use Smoking status: Never Smokeless tobacco: Never Vaping Use Vaping Use: Never used Substance Use Topics Alcohol use: No Drug use: No REVIEW OF SYSTEMS All other reviewed and negative other than HPI. OBJECTIVE: BP 122/66 Pulse 87 Resp 16 Wt 108.4 kg (239 lb) LMP 11/17/2022 (Exact Date) SpO2 96% BMI 45.16 kg/m . Vital signs reviewed by this provider. APPEARANCE Well appearing, alert, in no acute distress, well-hydrated, well nourished. EYES , conjunctiva and sclera normal. HEART RRR with normal S1 and S2, no murmurs, no gallops, no JVD appreciated LUNG clear to auscultation. No wheezes, rhonchi or rales EXTREMITIES Extremities normal, No deformities, No skin discoloration, and No edema. Right foot and ankle without swelling. 2+ pedal pulse with cap refill WNL SKIN Skin color, texture, turgor normal, no suspicious rashes or lesions HEPATITIS B(1 of 3 - 3-dose series) Never done SPIROMETRY Never done HEPATITIS C SCREENING Never done HIV SCREENING Never done PNEUMOCOCCAL(2 - PCV) due on 10/11/2016 MAMMOGRAM due on 01/31/2023 INFLUENZA(1) due on 02/13/2023 ANNUAL PCP TEAM CHRONIC DISEASE VISIT due on 09/25/2023 LIPID SCREEN due on 10/27/2024 COLORECTAL CANCER SCREENING due on 02/02/2025 DIABETES SCREEN due on 02/24/2025 PAP TESTING due on 01/16/2027 HPV TESTING due on 01/16/2027 DTAP,TDAP,TD(3 - Td or Tdap) due on 11/23/2030 DEPRESSION ASSESSMENT Completed COVID-19 VACCINE Completed ASSESSMENT/PLAN: 1. Acute deep vein thrombosis (DVT) of tibial vein of right lower extremity (HCC) - ICD9: 453.42, ICD10: I82.441 - would consider this a provoked DVT - no red flag symptoms or exam findings - red flag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 Date Abdominal pain, right lower quadrant Allergic rhinitis, cause unspecified Burn of unspecified site, unspecified degree 3rd degee on feet Factor V Leiden mutation (HCC) 10/28/2017 Fatty liver disease, non-alcoholic 07/17/2010 Gastroesophageal reflux disease 09/22/2016 Hearing loss 07/02/2011 bilateral Lactose intolerance Sleep apnea Tinnitus 07/02/2011 Unspecified asthma(493.90) Dr. Keene Vitamin D deficiency 07/13/2010 Vocal cord dysfunction 05/14/2011 Current Outpatient Medications Medication Sig amoxicillin-clavulanic acid (AUGMENTIN) 875-125 mg per tablet Take 1 tablet by mouth twice daily for 7 days. cetirizine (ZYRTEC) 10 mg tablet Take 10 mg by mouth once daily. soy isofla/blk cohosh/mag bark (ESTROVEN ORAL) Take by mouth. Vitamin E, dl, acetate, (VITAMIN E) 400 unit capsule Take 400 Units by mouth once daily. 800mg daily Magnesium 250 mg tab Take 250 mg by mouth once daily. albuterol HFA (VENTOLIN HFA) 90 mcg/actuation inhaler Inhale 2 Puffs as instructed every 4 hours as needed. famotidine (PEPCID) 20 mg tablet Take 1 tablet by mouth twice daily as needed. HHQ-PP-FLPQDA 0.18/0.215/0.25 mg-25 mcg TAKE 1 TABLET BY MOUTH EVERY DAY BREO ELLIPTA 100-25 mcg/dose inhaler Inhale 1 Inhalation as instructed once daily. lactase (LACTAID) 3,000 unit tablet Take 1 tablet by mouth three times daily with meals. nystatin (NYSTOP) powder Apply 1 application to affected area three times daily. montelukast (SINGULAIR) 10 mg tablet Take 10 mg by mouth once daily. CPAP daily at bedtime. olopatadine (PATANOL) 0.1 % ophthalmic solution Cholecalciferol, Vitamin D3, 25 mcg (1,000 unit) cap Take 2 capsules by mouth once daily. acidophilus-pectin, citrus 100 million cell-10 mg cap Take by mouth. fluticasone (FLONASE) 50 mcg/actuation nasal spray Use 2 Sprays in each nostril once daily. FOR ALLERGIC NASAL SX. MULTIVITAMIN TAB Take one(1) tablet daily. oxyCODONE-acetaminophen (PERCOCET) 5-325 mg tablet Take 1 tablet by mouth every 6 hours as needed for pain for up to 7 days. (Patient not taking: Reported on 12/05/2022) omeprazole (PRILOSEC) 20 mg capsule TAKE TWO CAPSULES BY MOUTH ONCE DAILY BEFORE BREAKFAST cyclobenzaprine (FLEXERIL) 10 mg tablet 10mg by mouth in evening as needed for muscle spasm No current facility-administered medications for this visit. ALLERGIES Allergen Reactions Naproxen Hives She should strictly avoid use of naproxen. She may take aspirin and other NSAIDs as tolerated. Bactrim [Sulfametho* Ciprofloxacin Hives Objective: Incision site is well coapted with no evidence of dehiscence. Mild erythema and edema surrounding surgical site. No drainage. No lymphadenopathy. No lymphangitis. No surrounding cellulitis. Patient has no pain to palpation of right calf. Negative Fermin's test. Assessment: (T84.84XA) Painful orthopaedic hardware (HCC) (primary encounter diagnosis) (Z98.890) Post-operative state Plan: Patient is s/p painful hardware removal. She is doing well Continue with protective wegithbearing to right heel She can change dressing every 2 days. She will apply adaptic to incision followed by mimi She is to keep the foot clean and dry. Not to get wet Continue with aspirin bid for risk of dvt F/u in 1 week Terry Dahl DPM [facility] 12-08-2022 History of Present illness Narrative DOS: 12/01/22 POD: 4 POV: 1 Surgical side: right This 47 year old presents post op hardware removal Pain level: 0/10 Vomiting, fever, chills, shortness of breath: no Pain Control: n/a Weightbearing status: partial weightbearing 5.5 (03/06/2017) PAST MEDICAL HISTORY Diagnosis Date Abdominal pain, right lower quadrant Allergic rhinitis, cause unspecified Burn of unspecified site, unspecified degree 3rd degee on feet Factor V Leiden mutation (HCC) 10/28/2017 Fatty liver disease, non-alcoholic 07/17/2010 Gastroesophageal reflux disease 09/22/2016 Hearing loss 07/02/2011 bilateral Lactose intolerance Sleep apnea Tinnitus 07/02/2011 Unspecified asthma(493.90) Dr. Keene Vitamin D deficiency 07/13/2010 Vocal cord dysfunction 05/14/2011 Current Outpatient Medications Medication Sig amoxicillin-clavulanic acid (AUGMENTIN) 875-125 mg per tablet Take 1 tablet by mouth twice daily for 7 days. cetirizine (ZYRTEC) 10 mg tablet Take 10 mg by mouth once daily. soy isofla/blk cohosh/mag bark (ESTROVEN ORAL) Take by mouth. Vitamin E, dl, acetate, (VITAMIN E) 400 unit capsule Take 400 Units by mouth once daily. 800mg daily Magnesium 250 mg tab Take 250 mg by mouth once daily. albuterol HFA (VENTOLIN HFA) 90 mcg/actuation inhaler Inhale 2 Puffs as instructed every 4 hours as needed. famotidine (PEPCID) 20 mg tablet Take 1 tablet by mouth twice daily as needed. [id number] 0.18/0.215/0.25 mg-25 mcg TAKE 1 TABLET BY MOUTH EVERY DAY BREO ELLIPTA 100-25 mcg/dose inhaler Inhale 1 Inhalation as instructed once daily. lactase (LACTAID) 3,000 unit tablet Take 1 tablet by mouth three times daily with meals. nystatin (NYSTOP) powder Apply 1 application to affected area three times daily. montelukast (SINGULAIR) 10 mg tablet Take 10 mg by mouth once daily. CPAP daily at bedtime. olopatadine (PATANOL) 0.1 % ophthalmic solution Cholecalciferol, Vitamin D3, 25 mcg (1,000 unit) cap Take 2 capsules by mouth once daily. acidophilus-pectin, citrus 100 million cell-10 mg cap Take by mouth. fluticasone (FLONASE) 50 mcg/actuation nasal spray Use 2 Sprays in each nostril once daily. FOR ALLERGIC NASAL SX. MULTIVITAMIN TAB Take one(1) tablet daily. oxyCODONE-acetaminophen (PERCOCET) 5-325 mg tablet Take 1 tablet by mouth every 6 hours as needed for pain for up to 7 days. (Patient not taking: Reported on 12/05/2022) omeprazole (PRILOSEC) 20 mg capsule TAKE TWO CAPSULES BY MOUTH ONCE DAILY BEFORE BREAKFAST cyclobenzaprine (FLEXERIL) 10 mg tablet 10mg by mouth in evening as needed for muscle spasm No current facility-administered medications for this visit. ALLERGIES Allergen Reactions Naproxen Hives She should strictly avoid use of naproxen. She may take aspirin and other NSAIDs as tolerated. Bactrim [Sulfametho* Ciprofloxacin Hives Objective: Incision site is well coapted with no evidence of dehiscence. Mild erythema and edema surrounding surgical site. No drainage. No lymphadenopathy. No lymphangitis. No surrounding cellulitis. Patient has no pain to palpation of right calf. Negative Fermin's test. Assessment: (T84.84XA) Painful orthopaedic hardware (HCC) (primary encounter diagnosis) (Z98.890) Post-operative state Plan: Patient is s/p painful hardware removal. She is doing well Continue with protective wegithbearing to right heel She can change dressing every 2 days. She will apply adaptic to incision followed by mimi She is to keep the foot clean and dry. Not to get wet Continue with aspirin bid for risk of dvt F/u in 1 week Terry Dahl DPM AMB ROOMING INTAKE FLOWSHEET DATA Patient presents with: Right Foot - Post Op, Swelling, Established Patient, Follow Up Patient present to office 4 days s/p removal of painful hardware right foot. Patient does not complain of pain at this time. Patient states she does have some num bness. Jaenssa Cano LPN documented in this encounter [facility] 12-05-2022 Note HNO ID: [id number] Author: Janessa Cano LPN Service: ? Author Type: LICENSED NURSE Type: Progress Notes Filed: 12/08/2022 7:40 AM Note Text: AMB ROOMING INTAKE FLOWSHEET DATA Patient presents with: Right Foot - Post Op, Swelling, Established Patient, Follow Up Patient present to office 4 days s/p removal of painful hardware right foot. Patient does not complain of pain at this time. Patient states she does have some num bness. Janessa Cano LPN [facility] 12-05-2022 Instructions Terry Dahl - 12/05/2022 3:27 PM EDT You are 4 days post-op from removal of hardware. Foot appears stable. Continue with post-op shoe and partial weightbearing to your heel Keep foot out of water. Can change bandage every 3 days. Apply small amount of adaptic (nonadherent guaze), 2x2 guaze and fredy wrap Call if any issues arise [place]: [phone] documented in this encounter [facility] 12-01-2022 Miscellaneous Notes I attempted to contact patient to see how she was doing. No answer Left message for patient to continue with post-op antibiotic and percocet for pain Continue with aspirin bid Follow-up as scheduled Terry Dahl DPM documented in this encounter [facility] 11-26-2022 Note HNO ID: [id number] Author: Neal Gomez PT Service: ? Author Type: Physical Therapist Type: Progress Notes Filed: 11/26/2022 1:21 PM Note Text: [facility] DME ISSUE NOTE Patient identified by name and date: Yes Subjective: Zahra Pierce is a 47 year old female seen today for fitting and pickle solution maker of duplicate pair of custom foot orthotics. Equipment Owned: custom foot orthotics DME Delivery: Pt was educated on wear schedule and care of custom foot orthotics. Pt was educated on the option of having orthotics refurbished as needed in the future as long as shell is performing it's intended function well. Pt was educated on approximate cost of refurbishing orthotics and an approximate time frame when this might be necessary. The fit of orthotics was assessed with pt standing, with and without shoes. The comfort of orthotics was assessed with pt standing and walking with orthotics in shoes. Pt denied any rubbing or pinching and felt that fit of custom orthotics was correct. Contact information for this therapist was provided to patient. Custom biomechanical foot orthotics with serial number: #[id number] were issued to patient and proof of receipt form signed by pt and therapist. All specifications for custom foot orthotics can be found in orthotic evaluation visit note. Planned Interventions: Follow up as needed for brace fitting/issues. Billing:[facility]: Orthotics Management and Training ([id number]): 1:1 time: 10 minutes (1 unit: 8-22 mins) Equipment: [id number] x2 duplicate pair of custom foot orthotics Total time: 10 minutes Neal Gomez PT [facility] 11-26-2022 History of Present illness Narrative [facility] DME ISSUE NOTE Patient identified by name and date: Yes Subjective: Zahra Pierce is a 47 year old female seen today for fitting and pickle solution maker of duplicate pair of custom foot orthotics. Equipment Owned: custom foot orthotics DME Delivery: Pt was educated on wear schedule and care of custom foot orthotics. Pt was educated on the option of having orthotics refurbished as needed in the future as long as shell is performing it's intended function well. Pt was educated on approximate cost of refurbishing orthotics and an approximate time frame when this might be necessary. The fit of orthotics was assessed with pt standing, with and without shoes. The comfort of orthotics was assessed with pt standing and walking with orthotics in shoes. Pt denied any rubbing or pinching and felt that fit of custom orthotics was correct. Contact information for this therapist was provided to patient. Custom biomechanical foot orthotics with serial number: #[id number] were issued to patient and proof of receipt form signed by pt and therapist. All specifications for custom foot orthotics can be found in orthotic evaluation visit note. Planned Interventions: Follow up as needed for brace fitting/issues. Billing:[facility]: Orthotics Management and Training ([id number]): 1:1 time: 10 minutes (1 unit: 8-22 mins) Equipment: [id number] x2 duplicate pair of custom foot orthotics Total time: 10 minutes Neal Gomez PT documented in this encounter [facility] 11-21-2022 Instructions Jessica Hadley PA-C - 11/21/2022 8:47 AM EDT PATIENT PREOPERATIVE INSTRUCTIONS No ref. provider found has scheduled you for your procedure at this surgery center: [facility]: [phone] -- [address] [facility] [address]. Please read below carefully for your personalized instructions. Arrival Time for Surgery: - The Surgery Center or hospital where you are having surgery will call the afternoon before surgery (or Thursday for Thursday surgery) with a scheduled arrival time. - If you have not heard by 4 pm, please contact the surgery center above. Please be aware that emergency situations arise, which may delay or change your surgical time. If this happens, we will notify you as soon as possible and regret any inconvenience. Dietary Restrictions: - No solid food after midnight. - You may have 12 ounces of clear liquids (water, clear juices such as apple juice or gatorade, carbonated beverages, clear tea, black coffee, jello) until 2 hours before scheduled arrival at facility. - Do not drink any alcohol after midnight the night before your surgery. Medications: Unless instructed differently below, stay on all of your medications until your surgery. Approved medications to take the morning of surgery with a sip of water: famotidine (PEPCID) If you start any new medications after today's visit, please contact the surgeon's office. Blood Thinning Medications: - Stop NSAIDS (Ibuprofen, Advil, Aleve, Motrin, Celebrex, Mobic, etc.) 7 days before surgery, as directed by your surgeon. - Stop Aspirin 7 days before surgery, as directed by your surgeon. - Stop Vitamin E, ALL multi-vitamins, herbals and dietary supplements 7 days before surgery. - You may take Tylenol (Acetaminophen) or any of your pain medications that do not contain aspirin or NSAIDS as needed. Important Reminders: - If you use CPAP/BIPAP, bring the machine with you to the surgery center. - If you are prescribed inhalers for breathing, continue using them. - Candy, mints, and tobacco products are NOT permitted the morning of surgery. - Hearing aids, dentures and glasses may be worn the morning of surgery. - NO jewelry, body piercings, makeup, hairpins or contacts are to be worn the day of surgery. If you develop symptoms such as a fever, cold, or flu, or have other changes to your health within TWO DAYS of scheduled surgery or the morning of surgery, please contact the surgery center above. Personal Belongings: -Please have photo ID and insurance cards. -If you do not have a copy of advance directives on file with us, please bring a copy with you on the day of surgery. - Leave ALL valuables and money at home or with family members. For Outpatient Procedures: - YOU MUST HAVE A RESPONSIBLE DISPATCHER CHIEF COAL SLURRY TAKE YOU HOME. A AUTO DRIVER OR MECHANICAL ENGINEERING INTERN CANNOT BE MADE A RESPONSIBLE DISPATCHER CHIEF COAL SLURRY. - We recommend that a responsible person stays with you overnight to take care of you. - You cannot stay in a hotel alone after outpatient surgery. You will not be permitted to have your surgery, if you do not have someone to take care of you. If you already have an Advance Directive, please fax a copy to [phone] or email to for it to be added to your chart. If you do not have an Advance Directive, you can find the appropriate form and more information at [email or web address]. We recommend that you complete the Advance Directive form found on the website and bring it with you the day of your surgery. It can be witnessed and scanned into your chart that day. Jessica Hadley PA-C documented in this encounter [facility] 11-21-2022 History and physical note HISTORY AND PHYSICAL EXAMINATION SERVICE DATE: 11/20/2022 SERVICE TIME: 9:12 AM PRIMARY CARE PHYSICIAN: Vincent Hinson MD REASON FOR VISIT: Zahra Pierce is a 47 year old female who is scheduled for Procedure(s): REMOVAL HARDWARE FOOT (Right) at the request of Dr. Terry Dahl for consultation. My final recommendation will be communicated back to the requesting physician by way of shared medical record or letter. Subjective The patient has the following: ACTIVE PROBLEM LIST Asthma Chronic Rhinitis Low Back Pain Esophageal Reflux Shortness of Breath Irritable Bowel Plantar Fascial Fibromatosis Vitamin D Deficiency Fatty Liver Disease, Nonalcoholic Vocal Cord Dysfunction Hearing Loss Tinnitus Episodic Tension-Type Headache, Not Intractable Mixed Headache Factor V Leiden Mutation (Hcc) Eczema Other Senior Care (Current) Drug Therapy Obesity, Class Iii, Bmi 40-49.9 (Morbid Obesity) (Hcc) Allergic Rhinitis Due to Dust Mite Allergic Rhinitis Due to Fungal Spores Seasonal Allergic Rhinitis Due to Pollen Recurrent Uti 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 CHIEF COMPLAINT: Pre-anesthesia optimization HPI: Zahra Pierce is a 47 year old female presenting for pre-anesthesia consultation. Pt has history of bunion surgery about 9 years ago. Was previously today that screw was migrating out. States that shoes bother her and that she has to wear certain shoes to help with the pain. Can't put pressure on area at all without pain. Above procedure recommended to manage symptoms. Procedure scheduled on 12/01/2022 at [facility]. REVIEW OF SYSTEMS: General: No weight loss, malaise or fevers. Neurological: Positive for: headaches (migraines occasionally, takes OTC). Negative for: multiple sclerosis, Parkinson's disease, seizures and strokes. Respiratory: Positive for: asthma (uses Breo daily, rescue inhaler rarely- last use in August with cold), obstructive sleep apnea and CPAP/BiPAP compliant. Negative for: COPD, current cough, dyspnea, orthopnea, tobacco use and URI < 2 weeks. Cardiovascular: No history of HTN requiring medication, no history of angina, CHF, VA, cardiac surgery or stents. Denies rest pain, gangrene or revascularization/amputation for PVD. No history of cardiovascular symptoms or problems. GI: + gastric polyps Positive for: GERD, irritable bowel syndrome (diarrhea) and liver disease (perviously noted liver cysts) Negative for: dysphagia and ETOH >2 drinks/day. : No history of dysuria, frequency or incontinence, stones or chronic kidney disease. No difficulty urinating, nocturia > 1 time per night or hematuria. 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 Endocrine: + Thyroid nodules, s/p biopsy- benign. No history of diabetes. Has not taken steroids within the past 30 days. No history of endocrinological symptoms or problems. Hematology: Positive for: factor V Leiden (carrier, no issues). Oncology: No history of CA metastasis, chemo within 30 days, or radiotherapy within 90 days. No history of oncological symptoms or problems. Psych: No history of psychiatric symptoms or problems. Musculoskeletal: See HPI. Positive for: back pain (chronic). Skin: Negative for lesions, rash and itching. PAST MEDICAL HISTORY Diagnosis Date Abdominal pain, right lower quadrant Allergic rhinitis, cause unspecified Burn of unspecified site, unspecified degree 3rd degee on feet Factor V Leiden mutation (HCC) 10/28/2017 Fatty liver disease, non-alcoholic 07/17/2010 Gastroesophageal reflux disease 09/22/2016 Hearing loss 07/02/2011 bilateral Lactose intolerance Sleep apnea Tinnitus 07/02/2011 Unspecified asthma(493.90) Dr. Keene Vitamin D deficiency 07/13/2010 Vocal cord dysfunction 05/14/2011 PAST SURGICAL HISTORY Procedure Laterality Date DELIVERY ONLY Two C/Sections COLONOSCOPY FLX DX W/COLLJ SPEC WHEN PFRMD 09/06/08 PAST SURGICAL HISTORY OF 05/2010 Right chino bunionectomy PAST SURGICAL HISTORY OF 10/15/2010 Vulvar Biopsy for VULVAR NEVUS SPLIT AGRFT F/S/N/H/F/G/M/D GT 1ST 100 CM/</1 % THYROID BIOPSY US Left 11/09/2019 [facility]- repeat 3 years TUBAL LIGATION, 09/03/2004 FAMILY HISTORY Problem Relation Age of Onset Heart Mother Bicuspbid valve Arthritis Mother Diabetes Father Hypertension Father Lipids Father other (rheumatoid arthritis) Sister None Brother Thyroid Maternal Grandmother Diabetes Maternal Grandmother Social History Tobacco Use Smoking status: Never Smokeless tobacco: Never Vaping Use Vaping Use: Never used Substance Use Topics Alcohol use: No Drug use: No Prior to Admission medications as of 11/21/22 0846 Medication Sig Last Dose Taking cetirizine (ZYRTEC) 10 mg tablet Take 10 mg by mouth once daily. Taking Yes soy isofla/blk cohosh/mag bark (ESTROVEN ORAL) Take by mouth. Taking Yes Vitamin E, dl, acetate, (VITAMIN E) 400 unit capsule Take 400 Units by mouth once daily. 800mg daily Taking Yes Magnesium 250 mg tab Take 250 mg by mouth once daily. Taking Yes albuterol HFA (VENTOLIN HFA) 90 mcg/actuation inhaler Inhale 2 Puffs as instructed every 4 hours as needed. Taking Yes famotidine (PEPCID) 20 mg tablet Take 1 tablet by mouth twice daily as needed. Taking Yes [id number] 0.18/0.215/0.25 mg-25 mcg TAKE 1 TABLET BY MOUTH EVERY DAY Taking Yes cyclobenzaprine (FLEXERIL) 10 mg tablet 10mg by mouth in evening as needed for muscle spasm Taking Yes BREO ELLIPTA 100-25 mcg/dose inhaler Inhale 1 Inhalation as instructed once daily. Taking Yes lactase (LACTAID) 3,000 unit tablet Take 1 tablet by mouth three times daily with meals. Taking Yes nystatin (NYSTOP) powder Apply 1 application to affected area three times daily. Taking Yes montelukast (SINGULAIR) 10 mg tablet Take 10 mg by mouth once daily. Taking Yes CPAP daily at bedtime. Taking Yes olopatadine (PATANOL) 0.1 % ophthalmic solution Taking Yes Cholecalciferol, Vitamin D3, 25 mcg (1,000 unit) cap Take 2 capsules by mouth once daily. Taking Yes acidophilus-pectin, citrus 100 million cell-10 mg cap Take by mouth. Taking Yes fluticasone (FLONASE) 50 mcg/actuation nasal spray Use 2 Sprays in each nostril once daily. FOR ALLERGIC NASAL SX. Taking Yes MULTIVITAMIN TAB Take one(1) tablet daily. Taking Yes omeprazole (PRILOSEC) 20 mg capsule TAKE TWO CAPSULES BY MOUTH ONCE DAILY BEFORE BREAKFAST No medication comments found. ALLERGIES Allergen Reactions Naproxen Hives She should strictly avoid use of naproxen. She may take aspirin and other NSAIDs as tolerated. Bactrim [Sulfametho* Ciprofloxacin Hives Objective PHYSICAL EXAM: General: alert and oriented, healthy appearance and morbidly obese. Pertinent negatives noted - not distressed. Skin: normal color, no rash or lesions. HEENT: EOM intact and pupils equal round. Pertinent negatives noted - no carotid bruit. Cardiovascular: regular rate and rhythm, normal S1 and S2, no rub, murmurs, or gallop. Respiratory: normal breath sounds, no wheezes or crackles. No chest wall deformity or tenderness. Abdomen: soft. Pertinent negatives noted - not tender. Extremities: no deformity, no edema or tenderness, no joint swelling or clubbing. Foot tenderness. Neurological: normal cognition and motor skills. Gait normal. No weakness or sensory deficit. PAIN ASSESSMENT: VITALS: BP 106/82 Pulse 76 Temp (Src) 97.5 (Temporal) Resp 16 Ht 5' 1.5 (1.56m) Wt 237 lb (107.5kg) SpO2 99% LMP 11/15/2022 BMI 44.06 kg/(m^2). Diagnostic tests reviewed for today's visit: Lab Value Units Date High Low HB No results within date range. HCT No results within date range. WBC No results within date range. PLT No results within date range. NA No results within date range. K No results within date range. GLUC No results within date range. BUN No results within date range. CREAT No results within date range. PTSEC No results within date range. INR No results within date range. APTT No results within date range. ALT No results within date range. AST No results within date range. TBILI No results within date range. TSH No results within date range. Lab Value Units Date High Low HCGQT No results within date range. UHCG No results within date range. HCG, BODY* No results within date range. Lab Value Units Date High Low ABORHD No results within date range. ABSCREEN No results within date range. Hemoglobin A1C (%) Date Value 03/06/2017 5.5 No results found for this or any previous visit (from the past 8760 hour(s)). Recent Results (from the past 04738 hour(s)) ECHO Collection Time: 08/02/21 8:38 AM Impression CONCLUSIONS: - Exam indication: Rule Out Pericardial Effusion - The left ventricle is normal in size. Left ventricular systolic function is normal. EF = 57 5% (2D biplane) Normal left ventricular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 clinical documentation, obtaining and/or reviewing separately obtained history, performing a medically appropriate examination, counseling and educating the patient/family/caregiver, and ordering medications, tests, or procedures. documented in this encounter [facility] 02-02-2022 Miscellaneous Notes February 02, 2022 PID: [id number] Zahra Joni Florentino [address] [place] [address] Dear Ms. Pierce, We are pleased to inform you that the results of your recent breast imaging exam on 01/31/2022 are normal. Early detection of cancer is very important. We also understand recommendations regarding breast cancer screening are controversial. Please discuss with your primary care provider which strategy is best for you and whether a mammogram is right for you. Your imaging studies and report will be kept on file at [facility] as part of your permanent medical record and are available for your continuing care. Thank you for allowing us to help in meeting your health care needs. Sincerely, Dr. Grimm Interpreting Radiologist [facility] (Normal over 40) documented in this encounter [facility] 01-31-2022 History of Present illness Narrative Radiology Service Progress Note PATIENT NAME: Zahra Pierce DATE OF SERVICE: January 31, 2022 TIME: 1:48 PM PATIENT IDENTITY VERIFICATION COMPLETED USING TWO (2) IDENTIFIERS: Name and Date of confirmed by patient verbally. FALL SCREENING: Has the patient had 2 falls in the last year or 1 fall with injury or currently using an Ambulatory Assistive Device (Walker, Cane, Wheelchair, Crutches, etc.)? No PATIENT GENDER DATA: Female. status: : No status: NO. PATIENT RELEVANT IMPLANT DATA REVIEWED: Not Applicable RADIOLOGY DEPARTMENT: Mammography PERIPHERAL IV DATA: Not applicable SIGNED BY: RT Harpreet(R) January 31, 2022 1:48 PM documented in this encounter [facility] 01-16-2022 History of Present illness Narrative Chief Complaint Patient presents with: Cough: chronic since 03/05 and has only gotten worse since COVID in 01/03 HPI Zahra Pierce is a 46 year old female who presents here today for Above Complaints. Persistent cough since February 2021. Patient with mild COVID infection last month with body aches, chills, cough and fever. Symptoms resolved after a few days aside from her cough. Described as intermittently productive cough with clear sputum. Cough seems to be worse after she eats in the evening and at night. Improved with drinking water. Admits to occasional hoarse voice. Tried delsym OTC which helped at first with cough. Has tried tessalon in the past which she says does not work for her. Taking her allergy medications and follows up with [facility], but this has not helped her cough. History of asthma on Breo and Singulair, but is only needing albuterol prior to exercise. Denies wheezing or SOB with the cough. Following up with Dr. Keene and has PFTs scheduled on 01/27. On Prilosec 40 mg daily for GERD which helps with heartburn and reflux. Denies fever/chills, chest pain, purulent sputum. Past medical history, appointments, medications, allergies reviewed. Previous Medical History PAST MEDICAL HISTORY Diagnosis Date Abdominal pain, right lower quadrant Allergic rhinitis, cause unspecified Burn of unspecified site, unspecified degree 3rd degee on feet Factor V Leiden mutation (HCC) 10/28/2017 Fatty liver disease, non-alcoholic 07/17/2010 Gastroesophageal reflux disease 09/22/2016 Hearing loss 07/02/2011 bilateral Lactose intolerance Sleep apnea Tinnitus 07/02/2011 Unspecified asthma(493.90) Vitamin D deficiency 07/13/2010 Vocal cord dysfunction 05/14/2011 Previous Surgical History PAST SURGICAL HISTORY Procedure Laterality Date DELIVERY ONLY Two C/Sections COLONOSCOPY FLX DX W/COLLJ SPEC WHEN PFRMD 09/06/08 PAST SURGICAL HISTORY OF 05/2010 Right chino bunionectomy PAST SURGICAL HISTORY OF 10/15/2010 Vulvar Biopsy for VULVAR NEVUS SPLIT AGRFT F/S/N/H/F/G/M/D GT 1ST 100 CM/</1 % THYROID BIOPSY US Left 11/09/2019 [facility] Rodgers- repeat 3 years TUBAL LIGATION, 09/03/2004 Family History FAMILY HISTORY Problem Relation Age of Onset Heart Mother Bicuspbid valve Arthritis Mother Diabetes Father Hypertension Father Lipids Father other (rheumatoid arthritis) Sister None Brother Thyroid Maternal Grandmother Diabetes Maternal Grandmother Patient Allergies ALLERGIES Allergen Reactions Naproxen Hives She should strictly avoid use of naproxen. She may take aspirin and other NSAIDs as tolerated. Bactrim [Sulfametho* Ciprofloxacin Hives Current Medications Current Outpatient Medications on File Prior to Visit Medication Sig Norgestimate-Ethinyl Estradiol (ORTHO TRI-CYCLEN LO, 28,) 0.18/0.215/0.25 mg-25 mcg Take 1 tablet by mouth once daily. cyclobenzaprine (FLEXERIL) 10 mg tablet 10mg by mouth in evening as needed for muscle spasm omeprazole (PRILOSEC) 20 mg capsule TAKE TWO CAPSULES BY MOUTH ONCE DAILY BEFORE BREAKFAST BREO ELLIPTA 100-25 mcg/dose inhaler Inhale 1 Inhalation as instructed once daily. albuterol HFA (VENTOLIN HFA) 90 mcg/actuation inhaler Inhale 2 Puffs as instructed every 4 hours as needed. lactase (LACTAID) 3,000 unit tablet Take 1 tablet by mouth three times daily with meals. nystatin (NYSTOP) powder Apply 1 application to affected area three times daily. montelukast (SINGULAIR) 10 mg tablet Take 10 mg by mouth once daily. CPAP daily at bedtime. olopatadine (PATANOL) 0.1 % ophthalmic solution cetirizine HCl (ZYRTEC ORAL) Take by mouth. Cholecalciferol, Vitamin D3, (VITAMIN D) 1,000 unit cap Take 2 capsules by mouth once daily. acidophilus-pectin, citrus (ACIDOPHILUS PROBIOTIC) 100 million cell-10 mg cap Take by mouth. fluticasone (FLONASE) 50 mcg/actuation nasal spray Use 2 Sprays in each nostril once daily. FOR ALLERGIC NASAL SX. MULTIVITAMIN TAB Take one(1) tablet daily. Current Facility-Administered Medications on File Prior to Visit Medication perflutren lipid microspheres 1.3 mL in NaCl (PF) 0.9% 10 mL injection (DEFINITY) sodium chloride 0.9 % (flush) 10 mL (BD POSIFLUSH) Social History Social History Tobacco Use Smoking status: Never Smoker Smokeless tobacco: Never Used Vaping Use Vaping Use: Never used Substance Use Topics Alcohol use: No Drug use: No Review of Symptoms REVIEW OF SYSTEMS See HPI EXAM: BP 118/74 Pulse 75 Resp 16 Wt 105.5 kg (232 lb 9.6 oz) LMP 01/11/2022 (Exact Date) SpO2 99% BMI 43.95 kg/m General Appearance: Well appearing, alert, in no acute distress, well-hydrated, well nourished.. Skin: Skin color, texture, turgor normal, no suspicious rashes or lesions. Neck: Supple, no adenopathy; thyroid symmetric, normal size, no bruits. Lungs: Lungs clear to auscultation. No wheezing, rhonchi, rales.. Heart: RRR without murmur, gallop, or rubs. No ectopy. Health Maintenance List SPIROMETRY Never done HEPATITIS C SCREENING Never done HIV SCREENING Never done PNEUMOCOCCAL(2 - PCV) due on 10/11/2016 COLORECTAL CANCER SCREENING due on 08/30/2019 DEPRESSION SCREENING due on 01/10/2021 MAMMOGRAM due on 01/10/2022 INFLUENZA(1) due on 02/13/2022 PAP TESTING due on 07/31/2022 HPV TESTING due on 07/31/2022 ANNUAL PCP TEAM CHRONIC DISEASE VISIT due on 10/18/2022 DIABETES SCREEN due on 08/05/2024 LIPID SCREEN due on 10/27/2024 DTAP,TDAP,TD(3 - Td or Tdap) due on 11/23/2030 COVID-19 VACCINE Completed ASSESSMENT/PLAN: 1. Persistent cough - ICD9: 786.2, ICD10: R05.3 (primary diagnosis) With worsening symptoms after eating and hoarse voice, suspect cough may be 2/2 silent GERD. May have been worsened after recent COVID infection. Add on H2 aurora with PPI. Follow up with pulmonology as scheduled and call if their workup is negative and symptoms persist. Would consider referral to GI for EGD at that time. Use albuterol PRN for cough/wheezing along with OTC delsym or robitussin. Red flags for re-assessment reviewed with patient in detail. - FAMOTIDINE 20 MG TABLET 2. History of COVID-19 - ICD9: V12.09, ICD10: Z86.16 See above. Vincent Hinson MD documented in this encounter [facility] 12-25-2021 History of Present illness Narrative Patient presents with: Head Congestion: sinus issues, cough x 1 week HPI: Feeling sick for 7 days. Positive symptoms: Cough, Sinus pressure, post-nasal drainage; improved Sore throat, Fever, Body Aches, and Malaise, Negative symptoms: Shortness of breath, Chest pain, Nausea, Vomiting, Diarrhea, OTC: Cold Medicine Had third dose of Moderna COVID-19 vaccine in September. Did not test for COVID but multiple family members had COVID over the last 2 weeks. PAST MEDICAL HISTORY Diagnosis Date Abdominal pain, right lower quadrant Allergic rhinitis, cause unspecified Burn of unspecified site, unspecified degree 3rd degee on feet Factor V Leiden mutation (HCC) 10/28/2017 Fatty liver disease, non-alcoholic 07/17/2010 Gastroesophageal reflux disease 09/22/2016 Hearing loss 07/02/2011 bilateral Lactose intolerance Sleep apnea Tinnitus 07/02/2011 Unspecified asthma(493.90) Vitamin D deficiency 07/13/2010 Vocal cord dysfunction 05/14/2011 MEDICATIONS: Current Outpatient Medications Medication Sig Norgestimate-Ethinyl Estradiol (ORTHO TRI-CYCLEN LO, 28,) 0.18/0.215/0.25 mg-25 mcg Take 1 tablet by mouth once daily. cyclobenzaprine (FLEXERIL) 10 mg tablet 10mg by mouth in evening as needed for muscle spasm omeprazole (PRILOSEC) 20 mg capsule TAKE TWO CAPSULES BY MOUTH ONCE DAILY BEFORE BREAKFAST BREO ELLIPTA 100-25 mcg/dose inhaler Inhale 1 Inhalation as instructed once daily. albuterol HFA (VENTOLIN HFA) 90 mcg/actuation inhaler Inhale 2 Puffs as instructed every 4 hours as needed. lactase (LACTAID) 3,000 unit tablet Take 1 tablet by mouth three times daily with meals. nystatin (NYSTOP) powder Apply 1 application to affected area three times daily. montelukast (SINGULAIR) 10 mg tablet Take 10 mg by mouth once daily. CPAP daily at bedtime. olopatadine (PATANOL) 0.1 % ophthalmic solution cetirizine HCl (ZYRTEC ORAL) Take by mouth. Cholecalciferol, Vitamin D3, (VITAMIN D) 1,000 unit cap Take by mouth once daily. acidophilus-pectin, citrus (ACIDOPHILUS PROBIOTIC) 100 million cell-10 mg cap Take by mouth. fluticasone (FLONASE) 50 mcg/actuation nasal spray Use 2 Sprays in each nostril once daily. FOR ALLERGIC NASAL SX. MULTIVITAMIN TAB Take one(1) tablet daily. benzonatate (TESSALON PERLE) 100 mg capsule Take 2 capsules by mouth three times daily as needed. fluticasone furoate (ARNUITY ELLIPTA) 100 mcg/actuation Inhale 1 Puff as instructed once daily. Inhale one puff once daily. DO NOT CLICK OPEN UNTIL READY FOR DOSE Current Facility-Administered Medications Medication Dose Route Frequency perflutren lipid microspheres 1.3 mL in NaCl (PF) 0.9% 10 mL injection (DEFINITY) INTRAVENOUS DIRECTED PRN sodium chloride 0.9 % (flush) 10 mL (BD POSIFLUSH) 10 mL INTRAVENOUS DIRECTED PRN ALLERGIES: ALLERGIES Allergen Reactions Naproxen Hives She should strictly avoid use of naproxen. She may take aspirin and other NSAIDs as tolerated. Bactrim [Sulfametho* Ciprofloxacin Hives VITALS: BP 132/90 Pulse 87 Temp 36.7 C (98.1 F) Resp 21 Wt 103 kg (227 lb) LMP 07/28/2021 SpO2 98% BMI 42.89 kg/m PHYSICAL EXAM: GEN: mildly ill appearing HEENT: PERRL, EOMI, conjunctiva clear Ears: canals clear. TMs without erythema, bulge, or effusion Sinuses: non-tender frontal sinus, non-tender maxillary sinuses Throat: moist mucous membranes, no erythema, no exudate Neck: supple, no thyromegaly, no lymphadenopathy HEART: regular rate and rhythm, no murmurs LUNGS: clear to auscultation, no wheezes or crackles, no increased WOB ASSESSMENT/PLAN: 1. Suspected COVID-19 virus infection - ICD9: V01.79, ICD10: Z20.822 (primary diagnosis) 2. Exposure to COVID-19 virus - ICD9: V01.79, ICD10: Z20.822 - Probable COVID-19. Still 3 days left of typical contagious period. - Discussed supportive care treatment with home isolation, rest, cold medicine, and analgesia. - Red flags to seek further treatment include chest pain, shortness of breath, and lethargy; in the ER if severe. - 2019 CORONAVIRUS Fred Akins MD documented in this encounter [facility] 12-02-2021 Miscellaneous Notes Annual scheduled with RR 01/16/22. Pending Prescriptions Disp Refills NORGESTIMATE 0.18 MG/0.215 MG/0.25 MG-ETHINYL ESTRADIOL 25 MCG TABLET 28 tablet 2 Sig: Take 1 tablet by mouth once daily. SARAN: No RX INSTRUCTIONS: Mychart request Cheyenne Mendoza RN documented in this encounter [facility] 10-18-2021 History of Present illness Narrative 10/18/2021 Patient presents with: Back Pain: lower Refill Request: muscle relaxer SUBJECTIVE: This is a 46 year old that is here today for Above Complaints.. ONSET: last week LOCATION: low back pain DURATION: intermittent CHARACTERISTICS: pressure and aching, spasms at times AGGRAVATING FEATURES: bending forward ALLEVIATING FEATURES: ibuprofen RADIATION: none Reports muscle feel tight a lot. Patient reports Dr. Rodgers ordered her flexeril years ago due to muscle spasms and tightness. She reports she uses them sparingly at night for this Denies hx of back surgery or injury, extremity numbness, tingling, weakness, saddle anaesthesia, urinary/bowel incontinence or inabilty PAST MEDICAL HISTORY Diagnosis Date Abdominal pain, right lower quadrant Allergic rhinitis, cause unspecified Burn of unspecified site, unspecified degree 3rd degee on feet Factor V Leiden mutation (HCC) 10/28/2017 Fatty liver disease, non-alcoholic 07/17/2010 Gastroesophageal reflux disease 09/22/2016 Hearing loss 07/02/2011 bilateral Lactose intolerance Sleep apnea Tinnitus 07/02/2011 Unspecified asthma(493.90) Vitamin D deficiency 07/13/2010 Vocal cord dysfunction 05/14/2011 ALLERGIES Naproxen, Bactrim [Sulfamethoxazole-Trimethoprim], and Ciprofloxacin MEDICATIONS Current Outpatient Medications Medication Sig omeprazole (PRILOSEC) 20 mg capsule TAKE TWO CAPSULES BY MOUTH ONCE DAILY BEFORE BREAKFAST BREO ELLIPTA 100-25 mcg/dose inhaler Inhale 1 Inhalation as instructed once daily. cyclobenzaprine (FLEXERIL) 10 mg tablet 10mg by mouth in evening as needed for muscle spasm albuterol HFA (VENTOLIN HFA) 90 mcg/actuation inhaler Inhale 2 Puffs as instructed every 4 hours as needed. Norgestimate-Ethinyl Estradiol (ORTHO TRI-CYCLEN LO, 28,) 0.18/0.215/0.25 mg-25 mcg Take 1 tablet by mouth once daily. lactase (LACTAID) 3,000 unit tablet Take 1 tablet by mouth three times daily with meals. nystatin (NYSTOP) powder Apply 1 application to affected area three times daily. montelukast (SINGULAIR) 10 mg tablet Take 10 mg by mouth once daily. CPAP daily at bedtime. olopatadine (PATANOL) 0.1 % ophthalmic solution cetirizine HCl (ZYRTEC ORAL) Take by mouth. Cholecalciferol, Vitamin D3, (VITAMIN D) 1,000 unit cap Take by mouth once daily. acidophilus-pectin, citrus (ACIDOPHILUS PROBIOTIC) 100 million cell-10 mg cap Take by mouth. fluticasone (FLONASE) 50 mcg/actuation nasal spray Use 2 Sprays in each nostril once daily. FOR ALLERGIC NASAL SX. MULTIVITAMIN TAB Take one(1) tablet daily. benzonatate (TESSALON PERLE) 100 mg capsule Take 2 capsules by mouth three times daily as needed. fluticasone furoate (ARNUITY ELLIPTA) 100 mcg/actuation Inhale 1 Puff as instructed once daily. Inhale one puff once daily. DO NOT CLICK OPEN UNTIL READY FOR DOSE Current Facility-Administered Medications Medication Dose Route Frequency perflutren lipid microspheres 1.3 mL in NaCl (PF) 0.9% 10 mL injection (DEFINITY) INTRAVENOUS DIRECTED PRN sodium chloride 0.9 % (flush) 10 mL (BD POSIFLUSH) 10 mL INTRAVENOUS DIRECTED PRN Medications and allergies reviewed by this provider. SOCIAL HISTORY Social History Tobacco Use Smoking status: Never Smoker Smokeless tobacco: Never Used Vaping Use Vaping Use: Never used Substance Use Topics Alcohol use: No Drug use: No REVIEW OF SYSTEMS All other reviewed and negative other than HPI. OBJECTIVE: BP 130/90 Pulse 90 Resp 18 Wt 108.8 kg (239 lb 12.8 oz) LMP 07/28/2021 SpO2 98% BMI 45.31 kg/m . Vital signs reviewed by this provider. APPEARANCE Well appearing, alert, in no acute distress, well-hydrated, well nourished. and Morbidly obese NECK Supple, FROM BACK: Normal exam, good flexion and extension, negative SLR test EXTREMITIES Extremities normal, No deformities, No skin discoloration and No edema NEURO Awake, alert and oriented x 3, Reflexes symmetrical, Normal gait, No involuntary motions. and negative findings: muscle tone normal, muscle strength normal, reflexes normal and symmetric, plantar response downgoing bilaterally SKIN Skin color, texture, turgor normal, no suspicious rashes or lesions to exposed skin COLORECTAL CANCER SCREENING due on 08/30/2019 DEPRESSION SCREENING due on 01/10/2021 MAMMOGRAM due on 01/10/2022 SPIROMETRY due on 11/23/2021 HEPATITIS C SCREENING due on 11/23/2021 HIV SCREENING due on 11/23/2021 PAP TESTING due on 07/31/2022 HPV TESTING due on 07/31/2022 ANNUAL PCP TEAM CHRONIC DISEASE VISIT due on 10/18/2022 DIABETES SCREEN due on 08/05/2024 LIPID SCREEN due on 10/27/2024 DTAP,TDAP,TD(3 - Td or Tdap) due on 11/23/2030 INFLUENZA Completed COVID-19 VACCINE Completed MENINGOCOCCAL CONJUGATE Aged Out ASSESSMENT/PLAN: 1. Acute bilateral low back pain without sciatica - ICD9: 724.2, 338.19, ICD10: M54.50 (primary diagnosis) - no red flag symptoms or exam findings - red flag symptoms discussed, verbalizes understanding - weight loss encouraged along with gentle stretching. -proper lifting technique reviewed - may use OTC topicals and pain relievers as indicated on packaging. May use heat for 15 minutes at a time. Discussed she should not sleep with heating pad - CYCLOBENZAPRINE 10 MG TABLET- discussed medication can make he drowsy so she should not drive or operate heavy machinery while using, verbalizes understanding 2. Muscle spasm - ICD9: 728.85, ICD10: M62.838 - CYCLOBENZAPRINE 10 MG TABLET - plan as in#1 Jessie Crooks APRN.[employer] Prescription instructions reviewed with patient as applicable. Patient advised if symptoms do not improve or if symptoms worsen sooner, to contact their primary care physician. Potential red flag symptoms discussed with the patient. Reviewed appropriate action plan to take if red flag symptoms occur. Patient agreeable to treatment plan. documented in this encounter [facility] 07-26-2021 Miscellaneous Notes Thanks. Patient calls to let provider know she isn't able to get in for an ECHO with [facility] until next Thursday. Patient asking for order to be sent to [facility] to schedule sooner. Faxed order per patient request to [phone]. Marisol Yu RN documented in this encounter [facility] documented as of this encounter (statuses as of 10/18/2021) [facility] History of Past illness Narrative* Problem Noted Date Resolved Date Elevated LFTs 11/03/2019 12/14/2019 Pain in right hip 11/18/2018 12/14/2019 Pre-syncope 10/30/2017 12/14/2019 Family history of factor V Leiden mutation 10/1412/14/2019 Scar condition and fibrosis of skin 03/07/2011 08/27/2018 HAV (hallux abducto valgus) 05/06/2010 07/0 06/2019 Pain in limb 05/06/2010 03/13/2017 Other enthesopathy of ankle and tarsus 0 03/13/2017 Hallux valgus (acquired) 03/01/2010 017 Spasm of muscle 09/11/2009 03/13/2017 Incomplete bladder emptying 09/11/200902/14 Chest wall muscle strain 05/17/2009 017 Myalgia and myositis, unspecified 06/10/2008 10/12/2015 Abdominal pain, other specified site 05/18/2008 10/12/2015 documented as of this encounter (statuses as of 12/02/2021) [facility] History of Past illness Narrative* Problem Noted Date Resolved Date Elevated LFTs 11/03/2019 12/14/2019 Pain in right hip 11/18/2018 12/14/2019 Pre-syncope 10/30/2017 12/14/2019 Family history of factor V Leiden mutation 10/1412/14/2019 Scar condition and fibrosis of skin 03/07/2011 08/27/2018 HAV (hallux abducto valgus) 05/06/2010 07/0 06/2019 Pain in limb 05/06/2010 03/13/2017 Other enthesopathy of ankle and tarsus 0 03/13/2017 Hallux valgus (acquired) 03/01/2010 017 Spasm of muscle 09/11/2009 03/13/2017 Incomplete bladder emptying 09/11/200902/14 Chest wall muscle strain 05/17/2009 017 Myalgia and myositis, unspecified 06/10/2008 10/12/2015 Abdominal pain, other specified site 05/18/2008 10/12/2015 documented as of this encounter (statuses as of 12/25/2021) [facility] History of Past illness Narrative* Problem Noted Date Resolved Date Elevated LFTs 11/03/2019 12/14/2019 Pain in right hip 11/18/2018 12/14/2019 Pre-syncope 10/30/2017 12/14/2019 Family history of factor V Leiden mutation 10/1412/14/2019 Scar condition and fibrosis of skin 03/07/2011 08/27/2018 HAV (hallux abducto valgus) 05/06/2010 070 06/2019 Pain in limb 05/06/2010 03/13/2017 Other enthesopathy of ankle and tarsus 0 03/13/2017 Hallux valgus (acquired) 03/01/2010 017 Spasm of muscle 09/11/2009 03/13/2017 Incomplete bladder emptying 09/11/200902/14 Chest wall muscle strain 05/17/2009 017 Myalgia and myositis, unspecified 06/10/2008 10/12/2015 Abdominal pain, other specified site 05/18/2008 10/12/2015 documented as of this encounter (statuses as of 01/16/2022) [facility] History of Past illness Narrative* Problem Noted Date Resolved Date Elevated LFTs 11/03/2019 12/14/2019 Pain in right hip 11/18/2018 12/14/2019 Pre-syncope 10/30/2017 12/14/2019 Family history of factor V Leiden mutation 10/1412/14/2019 Scar condition and fibrosis of skin 03/07/2011 08/27/2018 HAV (hallux abducto valgus) 05/06/2010 07/0 06/2019 Pain in limb 05/06/2010 03/13/2017 Other enthesopathy of ankle and tarsus 0 03/13/2017 Hallux valgus (acquired) 03/01/2010 017 Spasm of muscle 09/11/2009 03/13/2017 Incomplete bladder emptying 09/11/200902/14 Chest wall muscle strain 05/17/2009 017 Myalgia and myositis, unspecified 06/10/2008 10/12/2015 Abdominal pain, other specified site 05/18/2008 10/12/2015 documented as of this encounter (statuses as of 01/30/2022) [facility] History of Past illness Narrative* Problem Noted Date Resolved Date Elevated LFTs 11/03/2019 12/14/2019 Pain in right hip 11/18/2018 12/14/2019 Pre-syncope 10/30/2017 12/14/2019 Family history of factor V Leiden mutation 10/1412/14/2019 Scar condition and fibrosis of skin 03/07/2011 08/27/2018 HAV (hallux abducto valgus) 05/06/2010 070 06/2019 Pain in limb 05/06/2010 03/13/2017 Other enthesopathy of ankle and tarsus 0 03/13/2017 Hallux valgus (acquired) 03/01/2010 017 Spasm of muscle 09/11/2009 03/13/2017 Incomplete bladder emptying 09/11/200902/14 Chest wall muscle strain 05/17/2009 017 Myalgia and myositis, unspecified 06/10/2008 10/12/2015 Abdominal pain, other specified site 05/18/2008 10/12/2015 documented as of this encounter (statuses as of 02/01/2022) [facility] History of Past illness Narrative* Problem Noted Date Resolved Date Elevated LFTs 11/03/2019 12/14/2019 Pain in right hip 11/18/2018 12/14/2019 Pre-syncope 10/30/2017 12/14/2019 Family history of factor V Leiden mutation 10/1412/14/2019 Scar condition and fibrosis of skin 03/07/2011 08/27/2018 HAV (hallux abducto valgus) 05/06/2010 070 06/2019 Pain in limb 05/06/2010 03/13/2017 Other enthesopathy of ankle and tarsus 0 03/13/2017 Hallux valgus (acquired) 03/01/2010 017 Spasm of muscle 09/11/2009 03/13/2017 Incomplete bladder emptying 09/11/200902/14 Chest wall muscle strain 05/17/2009 017 Myalgia and myositis, unspecified 06/10/2008 10/12/2015 Abdominal pain, other specified site 05/18/2008 10/12/2015 documented as of this encounter (statuses as of 02/04/2022) [facility] History of Past illness Narrative* Problem Noted Date Resolved Date Elevated LFTs 11/03/2019 12/14/2019 Pain in right hip 11/18/2018 12/14/2019 Pre-syncope 10/30/2017 12/14/2019 Family history of factor V Leiden mutation 10/1412/14/2019 Scar condition and fibrosis of skin 03/07/2011 08/27/2018 HAV (hallux abducto valgus) 05/06/201006/2019 Pain in limb 05/06/2010 03/13/2017 Other enthesopathy of ankle and tarsus 0 03/13/2017 Hallux valgus (acquired) 03/01/2010 017 Spasm of muscle 09/11/2009 03/13/2017 Incomplete bladder emptying 09/11/200902/14 Chest wall muscle strain 05/17/2009 017 Myalgia and myositis, unspecified 06/10/2008 10/12/2015 Abdominal pain, other specified site 05/18/2008 10/12/2015 documented as of this encounter (statuses as of 02/24/2022) [facility] History of Past illness Narrative* Problem Noted Date Resolved Date Elevated LFTs 11/03/2019 12/14/2019 Pain in right hip 11/18/2018 12/14/2019 Pre-syncope 10/30/2017 12/14/2019 Family history of factor V Leiden mutation 10/1412/14/2019 Scar condition and fibrosis of skin 03/07/2011 08/27/2018 HAV (hallux abducto valgus) 05/06/201006/2019 Pain in limb 05/06/2010 03/13/2017 Other enthesopathy of ankle and tarsus 0 03/13/2017 Hallux valgus (acquired) 03/01/2010 017 Spasm of muscle 09/11/2009 03/13/2017 Incomplete bladder emptying 09/11/200902/14 Chest wall muscle strain 05/17/2009 017 Myalgia and myositis, unspecified 06/10/2008 10/12/2015 Abdominal pain, other specified site 05/18/2008 10/12/2015 documented as of this encounter (statuses as of 02/25/2022) [facility] History of Past illness Narrative* Problem Noted Date Resolved Date Elevated LFTs 11/03/2019 12/14/2019 Pain in right hip 11/18/2018 12/14/2019 Pre-syncope 10/30/2017 12/14/2019 Family history of factor V Leiden mutation 10/1412/14/2019 Scar condition and fibrosis of skin 03/07/2011 08/27/2018 HAV (hallux abducto valgus) 05/06/201006/2019 Pain in limb 05/06/2010 03/13/2017 Other enthesopathy of ankle and tarsus 0 03/13/2017 Hallux valgus (acquired) 03/01/2010 017 Spasm of muscle 09/11/2009 03/13/2017 Incomplete bladder emptying 09/11/200902/14 Chest wall muscle strain 05/17/2009 017 Myalgia and myositis, unspecified 06/10/2008 10/12/2015 Abdominal pain, other specified site 05/18/2008 10/12/2015 documented as of this encounter (statuses as of 03/18/2022) [facility] History of Past illness Narrative* Problem Noted Date Resolved Date Elevated LFTs 11/03/2019 12/14/2019 Pain in right hip 11/18/2018 12/14/2019 Pre-syncope 10/30/2017 12/14/2019 Family history of factor V Leiden mutation 10/1412/14/2019 Scar condition and fibrosis of skin 03/07/2011 08/27/2018 HAV (hallux abducto valgus) 05/06/2010 070 06/2019 Pain in limb 05/06/2010 03/13/2017 Other enthesopathy of ankle and tarsus 0 03/13/2017 Hallux valgus (acquired) 03/01/2010 017 Spasm of muscle 09/11/2009 03/13/2017 Incomplete bladder emptying 09/11/200902/14 Chest wall muscle strain 05/17/2009 017 Myalgia and myositis, unspecified 06/10/2008 10/12/2015 Abdominal pain, other specified site 05/18/2008 10/12/2015 documented as of this encounter (statuses as of 03/21/2022) [facility] History of Past illness Narrative* Problem Noted Date Resolved Date Elevated LFTs 11/03/2019 12/14/2019 Pain in right hip 11/18/2018 12/14/2019 Pre-syncope 10/30/2017 12/14/2019 Family history of factor V Leiden mutation 10/1412/14/2019 Scar condition and fibrosis of skin 03/07/2011 08/27/2018 HAV (hallux abducto valgus) 05/06/2010 07/0 06/2019 Pain in limb 05/06/2010 03/13/2017 Other enthesopathy of ankle and tarsus 0 03/13/2017 Hallux valgus (acquired) 03/01/2010 017 Spasm of muscle 09/11/2009 03/13/2017 Incomplete bladder emptying 09/11/200902/14 Chest wall muscle strain 05/17/2009 017 Myalgia and myositis, unspecified 06/10/2008 10/12/2015 Abdominal pain, other specified site 05/18/2008 10/12/2015 documented as of this encounter (statuses as of 03/21/2022) [facility] History of Past illness Narrative* Problem Noted Date Resolved Date Elevated LFTs 11/03/2019 12/14/2019 Pain in right hip 11/18/2018 12/14/2019 Pre-syncope 10/30/2017 12/14/2019 Family history of factor V Leiden mutation 10/1412/14/2019 Scar condition and fibrosis of skin 03/07/2011 08/27/2018 HAV (hallux abducto valgus) 05/06/2010 07/0 06/2019 Pain in limb 05/06/2010 03/13/2017 Other enthesopathy of ankle and tarsus 0 03/13/2017 Hallux valgus (acquired) 03/01/2010 017 Spasm of muscle 09/11/2009 03/13/2017 Incomplete bladder emptying 09/11/200902/14 Chest wall muscle strain 05/17/2009 017 Myalgia and myositis, unspecified 06/10/2008 10/12/2015 Abdominal pain, other specified site 05/18/2008 10/12/2015 documented as of this encounter (statuses as of 04/05/2022) [facility] History of Past illness Narrative* Problem Noted Date Resolved Date Elevated LFTs 11/03/2019 12/14/2019 Pain in right hip 11/18/2018 12/14/2019 Pre-syncope 10/30/2017 12/14/2019 Family history of factor V Leiden mutation 10/1412/14/2019 Scar condition and fibrosis of skin 03/07/2011 08/27/2018 HAV (hallux abducto valgus) 05/06/2010 07/0 06/2019 Pain in limb 05/06/2010 03/13/2017 Other enthesopathy of ankle and tarsus 0 03/13/2017 Hallux valgus (acquired) 03/01/2010 017 Spasm of muscle 09/11/2009 03/13/2017 Incomplete bladder emptying 09/11/200902/14 Chest wall muscle strain 05/17/2009 017 Myalgia and myositis, unspecified 06/10/2008 10/12/2015 Abdominal pain, other specified site 05/18/2008 10/12/2015 documented as of this encounter (statuses as of 04/11/2022) [facility] History of Past illness Narrative* Problem Noted Date Resolved Date Elevated LFTs 11/03/2019 12/14/2019 Pain in right hip 11/18/2018 12/14/2019 Pre-syncope 10/30/2017 12/14/2019 Family history of factor V Leiden mutation 10/1412/14/2019 Scar condition and fibrosis of skin 03/07/2011 08/27/2018 HAV (hallux abducto valgus) 05/06/2010 07/0 06/2019 Pain in limb 05/06/2010 03/13/2017 Other enthesopathy of ankle and tarsus 0 03/13/2017 Hallux valgus (acquired) 03/01/2010 017 Spasm of muscle 09/11/2009 03/13/2017 Incomplete bladder emptying 09/11/200902/14 Chest wall muscle strain 05/17/2009 017 Myalgia and myositis, unspecified 06/10/2008 10/12/2015 Abdominal pain, other specified site 05/18/2008 10/12/2015 documented as of this encounter (statuses as of 04/11/2022) [facility] History of Past illness Narrative* Problem Noted Date Resolved Date Elevated LFTs 11/03/2019 12/14/2019 Pain in right hip 11/18/2018 12/14/2019 Pre-syncope 10/30/2017 12/14/2019 Family history of factor V Leiden mutation 10/1412/14/2019 Scar condition and fibrosis of skin 03/07/2011 08/27/2018 HAV (hallux abducto valgus) 05/06/2010 07/0 06/2019 Pain in limb 05/06/2010 03/13/2017 Other enthesopathy of ankle and tarsus 0 03/13/2017 Hallux valgus (acquired) 03/01/2010 017 Spasm of muscle 09/11/2009 03/13/2017 Incomplete bladder emptying 09/11/200902/14 Chest wall muscle strain 05/17/2009 017 Myalgia and myositis, unspecified 06/10/2008 10/12/2015 Abdominal pain, other specified site 05/18/2008 10/12/2015 documented as of this encounter (statuses as of 09/11/2022) [facility] History of Past illness Narrative* Problem Noted Date Resolved Date Elevated LFTs 11/03/2019 12/14/2019 Pain in right hip 11/18/2018 12/14/2019 Pre-syncope 10/30/2017 12/14/2019 Family history of factor V Leiden mutation 10/1412/14/2019 Scar condition and fibrosis of skin 03/07/2011 08/27/2018 HAV (hallux abducto valgus) 05/06/2010 07/0 06/2019 Pain in limb 05/06/2010 03/13/2017 Other enthesopathy of ankle and tarsus 0 03/13/2017 Hallux valgus (acquired) 03/01/2010 017 Spasm of muscle 09/11/2009 03/13/2017 Incomplete bladder emptying 09/11/200902/14 Chest wall muscle strain 05/17/2009 017 Myalgia and myositis, unspecified 06/10/2008 10/12/2015 Abdominal pain, other specified site 05/18/2008 10/12/2015 documented as of this encounter (statuses as of 09/25/2022) [facility] History of Past illness Narrative* Problem Noted Date Resolved Date Elevated LFTs 11/03/2019 12/14/2019 Pain in right hip 11/18/2018 12/14/2019 Pre-syncope 10/30/2017 12/14/2019 Family history of factor V Leiden mutation 10/1412/14/2019 Scar condition and fibrosis of skin 03/07/2011 08/27/2018 HAV (hallux abducto valgus) 05/06/2010 070 06/2019 Pain in limb 05/06/2010 03/13/2017 Other enthesopathy of ankle and tarsus 0 03/13/2017 Hallux valgus (acquired) 03/01/2010 017 Spasm of muscle 09/11/2009 03/13/2017 Incomplete bladder emptying 09/11/200902/14 Chest wall muscle strain 05/17/2009 017 Myalgia and myositis, unspecified 06/10/2008 10/12/2015 Abdominal pain, other specified site 05/18/2008 10/12/2015 documented as of this encounter (statuses as of 10/17/2022) [facility] History of Past illness Narrative* Problem Noted Date Resolved Date Elevated LFTs 11/03/2019 12/14/2019 Pain in right hip 11/18/2018 12/14/2019 Pre-syncope 10/30/2017 12/14/2019 Family history of factor V Leiden mutation 10/1412/14/2019 Scar condition and fibrosis of skin 03/07/2011 08/27/2018 HAV (hallux abducto valgus) 05/06/2010 070 06/2019 Pain in limb 05/06/2010 03/13/2017 Other enthesopathy of ankle and tarsus 0 03/13/2017 Hallux valgus (acquired) 03/01/2010 017 Spasm of muscle 09/11/2009 03/13/2017 Incomplete bladder emptying 09/11/200902/14 Chest wall muscle strain 05/17/2009 017 Myalgia and myositis, unspecified 06/10/2008 10/12/2015 Abdominal pain, other specified site 05/18/2008 10/12/2015 documented as of this encounter (statuses as of 11/21/2022) [facility] History of Past illness Narrative* Problem Noted Date Resolved Date Elevated LFTs 11/03/2019 12/14/2019 Pain in right hip 11/18/2018 12/14/2019 Pre-syncope 10/30/2017 12/14/2019 Family history of factor V Leiden mutation 10/1412/14/2019 Scar condition and fibrosis of skin 03/07/2011 08/27/2018 HAV (hallux abducto valgus) 05/06/20100 06/2019 Pain in limb 05/06/2010 03/13/2017 Other enthesopathy of ankle and tarsus 0 03/13/2017 Hallux valgus (acquired) 03/01/2010 017 Spasm of muscle 09/11/2009 03/13/2017 Incomplete bladder emptying 09/11/200902/14 Chest wall muscle strain 05/17/2009 017 Myalgia and myositis, unspecified 06/10/2008 10/12/2015 Abdominal pain, other specified site 05/18/2008 10/12/2015 documented as of this encounter (statuses as of 11/26/2022) [facility] History of Past illness Narrative* Problem Noted Date Resolved Date Elevated LFTs 11/03/2019 12/14/2019 Pain in right hip 11/18/2018 12/14/2019 Pre-syncope 10/30/2017 12/14/2019 Family history of factor V Leiden mutation 10/1412/14/2019 Scar condition and fibrosis of skin 03/07/2011 08/27/2018 HAV (hallux abducto valgus) 05/06/20100 06/2019 Pain in limb 05/06/2010 03/13/2017 Other enthesopathy of ankle and tarsus 0 03/13/2017 Hallux valgus (acquired) 03/01/2010 017 Spasm of muscle 09/11/2009 03/13/2017 Incomplete bladder emptying 09/11/200902/14 Chest wall muscle strain 05/17/2009 017 Myalgia and myositis, unspecified 06/10/2008 10/12/2015 Abdominal pain, other specified site 05/18/2008 10/12/2015 documented as of this encounter (statuses as of 12/01/2022) [facility] History of Past illness Narrative* Problem Noted Date Resolved Date Elevated LFTs 11/03/2019 12/14/2019 Pain in right hip 11/18/2018 12/14/2019 Pre-syncope 10/30/2017 12/14/2019 Family history of factor V Leiden mutation 10/1412/14/2019 Scar condition and fibrosis of skin 03/07/2011 08/27/2018 HAV (hallux abducto valgus) 05/06/201006/2019 Pain in limb 05/06/2010 03/13/2017 Other enthesopathy of ankle and tarsus 0 03/13/2017 Hallux valgus (acquired) 03/01/2010 017 Spasm of muscle 09/11/2009 03/13/2017 Incomplete bladder emptying 09/11/200902/14 Chest wall muscle strain 05/17/2009 017 Myalgia and myositis, unspecified 06/10/2008 10/12/2015 Abdominal pain, other specified site 05/18/2008 10/12/2015 documented as of this encounter (statuses as of 12/01/2022) [facility] History of Past illness Narrative* Problem Noted Date Resolved Date Elevated LFTs 11/03/2019 12/14/2019 Pain in right hip 11/18/2018 12/14/2019 Pre-syncope 10/30/2017 12/14/2019 Family history of factor V Leiden mutation 10/1412/14/2019 Scar condition and fibrosis of skin 03/07/2011 08/27/2018 HAV (hallux abducto valgus) 05/06/2010 07/0 06/2019 Pain in limb 05/06/2010 03/13/2017 Other enthesopathy of ankle and tarsus 0 03/13/2017 Hallux valgus (acquired) 03/01/2010 017 Spasm of muscle 09/11/2009 03/13/2017 Incomplete bladder emptying 09/11/200902/14 Chest wall muscle strain 05/17/2009 017 Myalgia and myositis, unspecified 06/10/2008 10/12/2015 Abdominal pain, other specified site 05/18/2008 10/12/2015 documented as of this encounter (statuses as of 12/02/2022) [facility] History of Past illness Narrative* Problem Noted Date Resolved Date Elevated LFTs 11/03/2019 12/14/2019 Pain in right hip 11/18/2018 12/14/2019 Pre-syncope 10/30/2017 12/14/2019 Family history of factor V Leiden mutation 10/1412/14/2019 Scar condition and fibrosis of skin 03/07/2011 08/27/2018 HAV (hallux abducto valgus) 05/06/2010 070 06/2019 Pain in limb 05/06/2010 03/13/2017 Other enthesopathy of ankle and tarsus 0 03/13/2017 Hallux valgus (acquired) 03/01/2010 017 Spasm of muscle 09/11/2009 03/13/2017 Incomplete bladder emptying 09/11/200902/14 Chest wall muscle strain 05/17/2009 017 Myalgia and myositis, unspecified 06/10/2008 10/12/2015 Abdominal pain, other specified site 05/18/2008 10/12/2015 documented as of this encounter (statuses as of 12/08/2022) [facility] History of Past illness Narrative* Problem Noted Date Resolved Date Elevated LFTs 11/03/2019 12/14/2019 Pain in right hip 11/18/2018 12/14/2019 Pre-syncope 10/30/2017 12/14/2019 Family history of factor V Leiden mutation 10/1412/14/2019 Scar condition and fibrosis of skin 03/07/2011 08/27/2018 HAV (hallux abducto valgus) 05/06/2010 07/0 06/2019 Pain in limb 05/06/2010 03/13/2017 Other enthesopathy of ankle and tarsus 0 03/13/2017 Hallux valgus (acquired) 03/01/2010 017 Spasm of muscle 09/11/2009 03/13/2017 Incomplete bladder emptying 09/11/200902/14 Chest wall muscle strain 05/17/2009 017 Myalgia and myositis, unspecified 06/10/2008 10/12/2015 Abdominal pain, other specified site 05/18/2008 10/12/2015 documented as of this encounter (statuses as of 12/12/2022) [facility] History of Past illness Narrative* Problem Noted Date Resolved Date Elevated LFTs 11/03/2019 12/14/2019 Pain in right hip 11/18/2018 12/14/2019 Pre-syncope 10/30/2017 12/14/2019 Family history of factor V Leiden mutation 10/1412/14/2019 Scar condition and fibrosis of skin 03/07/2011 08/27/2018 HAV (hallux abducto valgus) 05/06/2010 07/0 06/2019 Pain in limb 05/06/2010 03/13/2017 Other enthesopathy of ankle and tarsus 0 03/13/2017 Hallux valgus (acquired) 03/01/2010 017 Spasm of muscle 09/11/2009 03/13/2017 Incomplete bladder emptying 09/11/200902/14 Chest wall muscle strain 05/17/2009 017 Myalgia and myositis, unspecified 06/10/2008 10/12/2015 Abdominal pain, other specified site 05/18/2008 10/12/2015 documented as of this encounter (statuses as of 12/12/2022) [facility] History of Past illness Narrative* Problem Noted Date Diagnosed Date Resolved Date Elevated LFTs 11/03/2019 12/14/2019 Pain in right hip 11/18/2018 12/14/2019 Pre-syncope 10/30/2017 12/14/2019 Family history of factor V Leiden mutation 10/14/2017 12/14/2019 Scar condition and fibrosis of skin 03/07/2011 08/27/2018 HAV (hallux abducto valgus) 05/06/2010 12/14/2019 Pain in limb 05/06/2010 03/13/2017 Other enthesopathy of ankle and tarsus 03/01/2010 03/13/2017 Hallux valgus (acquired) 03/01/2010 Spasm of muscle 09/11/2009 03/13/2017 Incomplete bladder emptying 09/11/2009 03/13/2017 Chest wall muscle strain 05/17/2009 Myalgia and myositis, unspecified 06/10/2008 10/12/2015 Abdominal pain, other specified site 05/18/2008 10/12/2015 documented as of this encounter (statuses as of 12/21/2022) [facility] History of Past illness Narrative* Problem Noted Date Diagnosed Date Resolved Date Elevated LFTs 11/03/2019 12/14/2019 Pain in right hip 11/18/2018 12/14/2019 Pre-syncope 10/30/2017 12/14/2019 Family history of factor V Leiden mutation 10/14/2017 12/14/2019 Scar condition and fibrosis of skin 03/07/2011 08/27/2018 HAV (hallux abducto valgus) 05/06/2010 12/14/2019 Pain in limb 05/06/2010 03/13/2017 Other enthesopathy of ankle and tarsus 03/01/2010 03/13/2017 Hallux valgus (acquired) 03/01/2010 Spasm of muscle 09/11/2009 03/13/2017 Incomplete bladder emptying 09/11/2009 03/13/2017 Chest wall muscle strain 05/17/2009 Myalgia and myositis, unspecified 06/10/2008 10/12/2015 Abdominal pain, other specified site 05/18/2008 10/12/2015 documented as of this encounter (statuses as of 12/25/2022) [facility] History of Past illness Narrative* Problem Noted Date Diagnosed Date Resolved Date Elevated LFTs 11/03/2019 12/14/2019 Pain in right hip 11/18/2018 12/14/2019 Pre-syncope 10/30/2017 12/14/2019 Family history of factor V Leiden mutation 10/14/2017 12/14/2019 Scar condition and fibrosis of skin 03/07/2011 08/27/2018 HAV (hallux abducto valgus) 05/06/2010 12/14/2019 Pain in limb 05/06/2010 03/13/2017 Other enthesopathy of ankle and tarsus 03/01/2010 03/13/2017 Hallux valgus (acquired) 03/01/2010 Spasm of muscle 09/11/2009 03/13/2017 Incomplete bladder emptying 09/11/2009 03/13/2017 Chest wall muscle strain 05/17/2009 Myalgia and myositis, unspecified 06/10/2008 10/12/2015 Abdominal pain, other specified site 05/18/2008 10/12/2015 documented as of this encounter (statuses as of 12/27/2022) [facility] History of Past illness Narrative* Problem Noted Date Diagnosed Date Resolved Date Elevated LFTs 11/03/2019 12/14/2019 Pain in right hip 11/18/2018 12/14/2019 Pre-syncope 10/30/2017 12/14/2019 Family history of factor V Leiden mutation 10/14/2017 12/14/2019 Scar condition and fibrosis of skin 03/07/2011 08/27/2018 HAV (hallux abducto valgus) 05/06/2010 12/14/2019 Pain in limb 05/06/2010 03/13/2017 Other enthesopathy of ankle and tarsus 03/01/2010 03/13/2017 Hallux valgus (acquired) 03/01/2010 Spasm of muscle 09/11/2009 03/13/2017 Incomplete bladder emptying 09/11/2009 03/13/2017 Chest wall muscle strain 05/17/2009 Myalgia and myositis, unspecified 06/10/2008 10/12/2015 Abdominal pain, other specified site 05/18/2008 10/12/2015 documented as of this encounter (statuses as of 12/30/2022) [facility] History of Past illness Narrative* Problem Noted Date Diagnosed Date Resolved Date Elevated LFTs 11/03/2019 12/14/2019 Pain in right hip 11/18/2018 12/14/2019 Pre-syncope 10/30/2017 12/14/2019 Family history of factor V Leiden mutation 10/14/2017 12/14/2019 Scar condition and fibrosis of skin 03/07/2011 08/27/2018 HAV (hallux abducto valgus) 05/06/2010 12/14/2019 Pain in limb 05/06/2010 03/13/2017 Other enthesopathy of ankle and tarsus 03/01/2010 03/13/2017 Hallux valgus (acquired) 03/01/2010 Spasm of muscle 09/11/2009 03/13/2017 Incomplete bladder emptying 09/11/2009 03/13/2017 Chest wall muscle strain 05/17/2009 Myalgia and myositis, unspecified 06/10/2008 10/12/2015 Abdominal pain, other specified site 05/18/2008 10/12/2015 documented as of this encounter (statuses as of 12/30/2022) [facility] History of Past illness Narrative* Problem Noted Date Diagnosed Date Resolved Date Elevated LFTs 11/03/2019 12/14/2019 Pain in right hip 11/18/2018 12/14/2019 Pre-syncope 10/30/2017 12/14/2019 Family history of factor V Leiden mutation 10/14/2017 12/14/2019 Scar condition and fibrosis of skin 03/07/2011 08/27/2018 HAV (hallux abducto valgus) 05/06/2010 12/14/2019 Pain in limb 05/06/2010 03/13/2017 Other enthesopathy of ankle and tarsus 03/01/2010 03/13/2017 Hallux valgus (acquired) 03/01/2010 Spasm of muscle 09/11/2009 03/13/2017 Incomplete bladder emptying 09/11/2009 03/13/2017 Chest wall muscle strain 05/17/2009 Myalgia and myositis, unspecified 06/10/2008 10/12/2015 Abdominal pain, other specified site 05/18/2008 10/12/2015 documented as of this encounter (statuses as of 01/01/2023) [facility] History of Past illness Narrative* Problem Noted Date Diagnosed Date Resolved Date Elevated LFTs 11/03/2019 12/14/2019 Pain in right hip 11/18/2018 12/14/2019 Pre-syncope 10/30/2017 12/14/2019 Family history of factor V Leiden mutation 10/14/2017 12/14/2019 Scar condition and fibrosis of skin 03/07/2011 08/27/2018 HAV (hallux abducto valgus) 05/06/2010 12/14/2019 Pain in limb 05/06/2010 03/13/2017 Other enthesopathy of ankle and tarsus 03/01/2010 03/13/2017 Hallux valgus (acquired) 03/01/2010 Spasm of muscle 09/11/2009 03/13/2017 Incomplete bladder emptying 09/11/2009 03/13/2017 Chest wall muscle strain 05/17/2009 Myalgia and myositis, unspecified 06/10/2008 10/12/2015 Abdominal pain, other specified site 05/18/2008 10/12/2015 documented as of this encounter (statuses as of 01/08/2023) [facility] of Past illness Narrative* Problem Noted Date Diagnosed Date Resolved Date Elevated LFTs 11/03/2019 12/14/2019 Pain in right hip 11/18/2018 12/14/2019 Pre-syncope 10/30/2017 12/14/2019 Family history of factor V Leiden mutation 10/14/2017 12/14/2019 Scar condition and fibrosis of skin 03/07/2011 08/27/2018 HAV (hallux abducto valgus) 05/06/2010 12/14/2019 Pain in limb 05/06/2010 03/13/2017 Other enthesopathy of ankle and tarsus 03/01/2010 03/13/2017 Hallux valgus (acquired) 03/01/2010 Spasm of muscle 09/11/2009 03/13/2017 Incomplete bladder emptying 09/11/2009 03/13/2017 Chest wall muscle strain 05/17/2009 Myalgia and myositis, unspecified 06/10/2008 10/12/2015 Abdominal pain, other specified site 05/18/2008 10/12/2015 documented as of this encounter (statuses as of 01/16/2023) [facility] History of Past illness Narrative* Problem Noted Date Diagnosed Date Resolved Date Elevated LFTs 11/03/2019 12/14/2019 Pain in right hip 11/18/2018 12/14/2019 Pre-syncope 10/30/2017 12/14/2019 Family history of factor V Leiden mutation 10/14/2017 12/14/2019 Scar condition and fibrosis of skin 03/07/2011 08/27/2018 HAV (hallux abducto valgus) 05/06/2010 12/14/2019 Pain in limb 05/06/2010 03/13/2017 Other enthesopathy of ankle and tarsus 03/01/2010 03/13/2017 Hallux valgus (acquired) 03/01/2010 Spasm of muscle 09/11/2009 03/13/2017 Incomplete bladder emptying 09/11/2009 03/13/2017 Chest wall muscle strain 05/17/2009 Myalgia and myositis, unspecified 06/10/2008 10/12/2015 Abdominal pain, other specified site 05/18/2008 10/12/2015 documented as of this encounter (statuses as of 01/27/2023) [facility] History of Past illness Narrative* Problem Noted Date Diagnosed Date Resolved Date Elevated LFTs 11/03/2019 12/14/2019 Pain in right hip 11/18/2018 12/14/2019 Pre-syncope 10/30/2017 12/14/2019 Family history of factor V Leiden mutation 10/14/2017 12/14/2019 Scar condition and fibrosis of skin 03/07/2011 08/27/2018 HAV (hallux abducto valgus) 05/06/2010 12/14/2019 Pain in limb 05/06/2010 03/13/2017 Other enthesopathy of ankle and tarsus 03/01/2010 03/13/2017 Hallux valgus (acquired) 03/01/2010 Spasm of muscle 09/11/2009 03/13/2017 Incomplete bladder emptying 09/11/2009 03/13/2017 Chest wall muscle strain 05/17/2009 Myalgia and myositis, unspecified 06/10/2008 10/12/2015 Abdominal pain, other specified site 05/18/2008 10/12/2015 documented as of this encounter (statuses as of 02/11/2023) [facility] History of Past illness Narrative* Problem Noted Date Diagnosed Date Resolved Date Elevated LFTs 11/03/2019 12/14/2019 Pain in right hip 11/18/2018 12/14/2019 Pre-syncope 10/30/2017 12/14/2019 Family history of factor V Leiden mutation 10/14/2017 12/14/2019 Scar condition and fibrosis of skin 03/07/2011 08/27/2018 HAV (hallux abducto valgus) 05/06/2010 12/14/2019 Pain in limb 05/06/2010 03/13/2017 Other enthesopathy of ankle and tarsus 03/01/2010 03/13/2017 Hallux valgus (acquired) 03/01/2010 Spasm of muscle 09/11/2009 03/13/2017 Incomplete bladder emptying 09/11/2009 03/13/2017 Chest wall muscle strain 05/17/2009 Myalgia and myositis, unspecified 06/10/2008 10/12/2015 Abdominal pain, other specified site 05/18/2008 10/12/2015 documented as of this encounter (statuses as of 02/19/2023) [facility] History of Past illness Narrative* Problem Noted Date Diagnosed Date Resolved Date Elevated LFTs 11/03/2019 12/14/2019 Pain in right hip 11/18/2018 12/14/2019 Pre-syncope 10/30/2017 12/14/2019 Family history of factor V Leiden mutation 10/14/2017 12/14/2019 Scar condition and fibrosis of skin 03/07/2011 08/27/2018 HAV (hallux abducto valgus) 05/06/2010 12/14/2019 Pain in limb 05/06/2010 03/13/2017 Other enthesopathy of ankle and tarsus 03/01/2010 03/13/2017 Hallux valgus (acquired) 03/01/2010 Spasm of muscle 09/11/2009 03/13/2017 Incomplete bladder emptying 09/11/2009 03/13/2017 Chest wall muscle strain 05/17/2009 Myalgia and myositis, unspecified 06/10/2008 10/12/2015 Abdominal pain, other specified site 05/18/2008 10/12/2015 documented as of this encounter (statuses as of 03/27/2023) [facility] History of Past illness Narrative* Problem Noted Date Diagnosed Date Resolved Date Elevated LFTs 11/03/2019 12/14/2019 Pain in right hip 11/18/2018 12/14/2019 Pre-syncope 10/30/2017 12/14/2019 Family history of factor V Leiden mutation 10/14/2017 12/14/2019 Scar condition and fibrosis of skin 03/07/2011 08/27/2018 HAV (hallux abducto valgus) 05/06/2010 12/14/2019 Pain in limb 05/06/2010 03/13/2017 Other enthesopathy of ankle and tarsus 03/01/2010 03/13/2017 Hallux valgus (acquired) 03/01/2010 Spasm of muscle 09/11/2009 03/13/2017 Incomplete bladder emptying 09/11/2009 03/13/2017 Chest wall muscle strain 05/17/2009 Myalgia and myositis, unspecified 06/10/2008 10/12/2015 Abdominal pain, other specified site 05/18/2008 10/12/2015 documented as of this encounter (statuses as of 03/31/2023) [facility] History of Past illness Narrative* Problem Noted Date Diagnosed Date Resolved Date Elevated LFTs 11/03/2019 12/14/2019 Pain in right hip 11/18/2018 12/14/2019 Pre-syncope 10/30/2017 12/14/2019 Family history of factor V Leiden mutation 10/14/2017 12/14/2019 Scar condition and fibrosis of skin 03/07/2011 08/27/2018 HAV (hallux abducto valgus) 05/06/2010 12/14/2019 Pain in limb 05/06/2010 03/13/2017 Other enthesopathy of ankle and tarsus 03/01/2010 03/13/2017 Hallux valgus (acquired) 03/01/2010 Spasm of muscle 09/11/2009 03/13/2017 Incomplete bladder emptying 09/11/2009 03/13/2017 Chest wall muscle strain 05/17/2009 Myalgia and myositis, unspecified 06/10/2008 10/12/2015 Abdominal pain, other specified site 05/18/2008 10/12/2015 documented as of this encounter (statuses as of 04/09/2023) [facility] History of Past illness Narrative* Problem Noted Date Diagnosed Date Resolved Date Elevated LFTs 11/03/2019 12/14/2019 Pain in right hip 11/18/2018 12/14/2019 Pre-syncope 10/30/2017 12/14/2019 Family history of factor V Leiden mutation 10/14/2017 12/14/2019 Scar condition and fibrosis of skin 03/07/2011 08/27/2018 HAV (hallux abducto valgus) 05/06/2010 12/14/2019 Pain in limb 05/06/2010 03/13/2017 Other enthesopathy of ankle and tarsus 03/01/2010 03/13/2017 Hallux valgus (acquired) 03/01/2010 Spasm of muscle 09/11/2009 03/13/2017 Incomplete bladder emptying 09/11/2009 03/13/2017 Chest wall muscle strain 05/17/2009 Myalgia and myositis, unspecified 06/10/2008 10/12/2015 Abdominal pain, other specified site 05/18/2008 10/12/2015 documented as of this encounter (statuses as of 04/16/2023) [facility] History of Past illness Narrative* Problem Noted Date Diagnosed Date Resolved Date Elevated LFTs 11/03/2019 12/14/2019 Pain in right hip 11/18/2018 12/14/2019 Pre-syncope 10/30/2017 12/14/2019 Family history of factor V Leiden mutation 10/14/2017 12/14/2019 Scar condition and fibrosis of skin 03/07/2011 08/27/2018 HAV (hallux abducto valgus) 05/06/2010 12/14/2019 Pain in limb 05/06/2010 03/13/2017 Other enthesopathy of ankle and tarsus 03/01/2010 03/13/2017 Hallux valgus (acquired) 03/01/2010 Spasm of muscle 09/11/2009 03/13/2017 Incomplete bladder emptying 09/11/2009 03/13/2017 Chest wall muscle strain 05/17/2009 Myalgia and myositis, unspecified 06/10/2008 10/12/2015 Abdominal pain, other specified site 05/18/2008 10/12/2015 documented as of this encounter (statuses as of 04/17/2023) [facility] History of Past illness Narrative* Problem Noted Date Diagnosed Date Resolved Date Elevated LFTs 11/03/2019 12/14/2019 Pain in right hip 11/18/2018 12/14/2019 Pre-syncope 10/30/2017 12/14/2019 Family history of factor V Leiden mutation 10/14/2017 12/14/2019 Scar condition and fibrosis of skin 03/07/2011 08/27/2018 HAV (hallux abducto valgus) 05/06/2010 12/14/2019 Pain in limb 05/06/2010 03/13/2017 Other enthesopathy of ankle and tarsus 03/01/2010 03/13/2017 Hallux valgus (acquired) 03/01/2010 Spasm of muscle 09/11/2009 03/13/2017 Incomplete bladder emptying 09/11/2009 03/13/2017 Chest wall muscle strain 05/17/2009 Myalgia and myositis, unspecified 06/10/2008 10/12/2015 Abdominal pain, other specified site 05/18/2008 10/12/2015 documented as of this encounter (statuses as of 04/19/2023) [facility] History of Past illness Narrative* Problem Noted Date Diagnosed Date Resolved Date Elevated LFTs 11/03/2019 12/14/2019 Pain in right hip 11/18/2018 12/14/2019 Pre-syncope 10/30/2017 12/14/2019 Family history of factor V Leiden mutation 10/14/2017 12/14/2019 Scar condition and fibrosis of skin 03/07/2011 08/27/2018 HAV (hallux abducto valgus) 05/06/2010 12/14/2019 Pain in limb 05/06/2010 03/13/2017 Other enthesopathy of ankle and tarsus 03/01/2010 03/13/2017 Hallux valgus (acquired) 03/01/2010 Spasm of muscle 09/11/2009 03/13/2017 Incomplete bladder emptying 09/11/2009 03/13/2017 Chest wall muscle strain 05/17/2009 Myalgia and myositis, unspecified 06/10/2008 10/12/2015 Abdominal pain, other specified site 05/18/2008 10/12/2015 documented as of this encounter (statuses as of 05/06/2023) [facility] Diagnosis Acute bilateral low back pain without sciatica- Primary Muscle spasm Spasm of muscle [facility] Suspected COVID-19 virus infection- Primary [facility] to COVID-19 [facility] Persistent cough- Primary Cough History of COVID-19 [facility] Diagnosis Encounter for gynecological examination (general) (routine) without abnormal findings Encounter for screening mammogram for breast cancer [facility] Diagnosis Leg cramps- Primary Cramp of limb [facility] Persistent cough Cough [facility] Diagnosis Elevated BP without diagnosis of hypertension- Primary Chronic cough Cough [facility] Diagnosis Acute non-recurrent maxillary sinusitis- Primary Non-recurrent acute serous otitis media of both ears [facility] Diagnosis Sinobronchitis- Primary Unspecified sinusitis (chronic) [facility] Diagnosis Pain- Primary Generalized pain [facility] Diagnosis Pre-op evaluation- Primary Preoperative examination, unspecified Mixed headache Headache Fatty liver disease, nonalcoholic Other chronic nonalcoholic liver disease Multinodular goiter Nontoxic multinodular goiter Factor V Leiden mutation (HCC) Primary hypercoagulable state Obesity, Class III, BMI 40-49.9 (morbid obesity) (HCC) Morbid obesity ANA LILIA (obstructive sleep apnea) Obstructive sleep apnea (adult) (pediatric) Painful orthopaedic hardware (HCC) Other complications due to other internal orthopedic device, implant, and graft [facility] Diagnosis Posterior tibial tendon dysfunction (PTTD) of both lower extremities- Primary Plantar fascial fibromatosis Painful orthopaedic hardware (HCC) Other complications due to other internal orthopedic device, implant, and graft [facility] Diagnosis Painful orthopaedic hardware (HCC)- Primary Other complications due to other internal orthopedic device, implant, and graft [facility] Diagnosis Painful orthopaedic hardware (HCC)- Primary Other complications due to other internal orthopedic device, implant, and graft Post-operative state Other postprocedural status [facility] Diagnosis Painful orthopaedic hardware (HCC)- Primary Other complications due to other internal orthopedic device, implant, and graft Post-operative state Other postprocedural status [facility] Diagnosis Posterior tibial tendon dysfunction (PTTD) of both lower extremities- Primary Plantar fascial fibromatosis [facility] Diagnosis Painful orthopaedic hardware (HCC)- Primary Other complications due to other internal orthopedic device, implant, and graft Post-operative state Other postprocedural status [facility] Diagnosis Localized swelling of lower leg- Primary [facility] Diagnosis Acute deep vein thrombosis (DVT) of tibial vein of right lower extremity (HCC)- Primary [facility] Diagnosis Encounter for gynecological examination (general) (routine) without abnormal findings- Primary Encounter for screening mammogram for breast cancer [facility] Diagnosis Ankle swelling, unspecified laterality- Primary Acute deep vein thrombosis (DVT) of tibial vein of right lower extremity (HCC) Foot swelling Swelling of limb [facility] Diagnosis Acute deep vein thrombosis (DVT) of tibial vein of right lower extremity (HCC)- Primary Factor V Leiden (HCC) Primary hypercoagulable state Leg cramping Cramp of limb [facility] Diagnosis Factor V Leiden mutation (HCC)- Primary Primary hypercoagulable state 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 [facility] Diagnosis Encounter for gynecological examination (general) (routine) without abnormal findings Encounter for screening mammogram for breast cancer [facility] Diagnostic Procedure Only (Routine) - Closed Specialty Diagnoses / Procedures Referred By Contac t Referred To Contact [facility] Diagnoses Encounter for gynecological examination (general) (routine) without abnormal findings Encounter for screening mammogram for breast cancer Procedures FALLON SCREENING W MARCEL SCREENING DIGITAL BREAST TOMOSYNTHESIS BI SCREENING MAMMOGRAPHY BI 2-VIEW BREAST INC Brianna Hewitt MD [address] [place] [address] [facility] [address] [place] [address] Referral ID Status Reason Start Date Expiration Date V isits Requested Visits Authorized [id number] Closed Auto-Generate d Referral 01/16/2022 02/15/2023 1 1 [facility] for referral (narrative)* Diagnostic Procedure Only (Routine) - Authorized Specialty Diagnoses / Procedures Referred By Contac t Referred To Contact XR IMAGING Diagnoses Pain Procedures XR FOOT GENERAL 3V AP/LAT/OBL LEFT RADEX FOOT COMPLETE MINIMUM 3 VIEWS Terry [address]ahl[address] [place] [address] Xr Imaging Referral ID Status Reason Start Date Expiration Date Visits Requested Visits Authorized [id number] Authorized Auto-Generat ed Referral 10/16/2022 11/15/2023 1 1 [facility] for referral (narrative)* Diagnostic Procedure Only (Routine) - Pending Review Specialty Diagnoses / Procedures Referred By Contac t Referred To Contact XR IMAGING Diagnoses Localized swelling of lower leg Procedures XR FOOT GENERAL 3V AP/LAT/OBL RIGHT RADEX FOOT COMPLETE MINIMUM 3 VIEWS Terry [address]ahl[address] [place] [address] Xr Imaging Referral ID Status Reason Start Date Expiration Date Visits Requested Visits Authorized [id number] Pending Review Auto-Generat ed Referral 12/26/2022 01/25/2024 1 1 * Outpatient Procedure (Routine) - Pending Review Specialty Diagnoses / Procedures Referred By eJnny t Referred To Contact [facility] Diagnoses Localized swelling of lower leg Procedures US LEG VEIN DVT UNL VAS LAB DUP-SCAN XTR VEINS UNILATERAL/LIMITED STUDY Terry Dahl [address] [place] [address] [facility] [address] [address] Referral ID Status Reason Start Date Expiration Date Visits Requested Visits Authorized [id number] Pending Review Auto-Generat ed Referral 12/26/2022 12/26/2023 1 1 [facility] for referral (narrative)* Diagnostic Procedure Only (Routine) - Pending Review Specialty Diagnoses / Procedures Referred By Jenny rubio Referred To Contact [facility] Diagnoses Encounter for gynecological examination (general) (routine) without abnormal findings Encounter for screening mammogram for breast cancer Procedures FALLON SCREENING W MARCEL SCREENING DIGITAL BREAST TOMOSYNTHESIS BI SCREENING MAMMOGRAPHY BI 2-VIEW BREAST INC CAD Brianna Allan MD [address] [place] [address] [facility] [address] [place] [address] Referral ID Status Reason Start Date Expiration Date Visits Requested Visits Authorized [id number] Pending Review Auto-Generat ed Referral 01/16/2023 02/15/2024 1 1 [facility] for referral (narrative)* Diagnostic Procedure Only (Routine) - Closed Specialty Diagnoses / Procedures Referred By Jenny rubio Referred To Contact [facility] Diagnoses Encounter for gynecological examination (general) (routine) without abnormal findings Encounter for screening mammogram for breast cancer Procedures FALLON SCREENING W MARCEL SCREENING DIGITAL BREAST TOMOSYNTHESIS BI SCREENING MAMMOGRAPHY BI 2-VIEW BREAST INC Brianna Hewitt MD [address] [place] [address] [facility] [address] [place] [address] Referral ID Status Reason Start Date Expiration Date V isits Requested Visits Authorized [id number] Closed Auto-Generate d Referral 01/16/2023 02/15/2024 1 1 [facility] for visit Narrative* Diagnostic Procedure Only (Routine) - Closed Specialty Diagnoses / Procedures Referred By Contac t Referred To Contact [facility] Diagnoses Encounter for gynecological examination (general) (routine) without abnormal findings Encounter for screening mammogram for breast cancer Procedures FALLON SCREENING W MARCEL SCREENING DIGITAL BREAST TOMOSYNTHESIS BI SCREENING MAMMOGRAPHY BI 2-VIEW BREAST INC Brianna Hewitt MD [address] [place] [address] [facility] [address] [facility] [place] [address] Referral ID Status Reason Start Date Expiration Date V isits Requested Visits Authorized [id number] Closed Auto-Generate d Referral 01/16/2022 02/15/2023 1 1 [facility] for visit Narrative* Diagnostic Procedure Only (Routine) - Closed Specialty Diagnoses / Procedures Referred By Jenny rubio Referred To Contact [facility] Diagnoses Encounter for gynecological examination (general) (routine) without abnormal findings Encounter for screening mammogram for breast cancer Procedures FALLON SCREENING W MARCEL SCREENING DIGITAL BREAST TOMOSYNTHESIS BI SCREENING MAMMOGRAPHY BI 2-VIEW BREAST INC Brianna Hewitt MD [address] [place] [address] [facility] [address] [place] [address] Referral ID Status Reason Start Date Expiration Date V isits Requested Visits Authorized [id number] Closed Auto-Generate d Referral 01/16/2023 02/15/2024 1 1 [facility] Concerns Infection Onset Date Last Indicated Resolved Time COVID-19 Rule-Out 12/25/2021 12/25/2021 Infection Onset Date Last Indicated Resolved Time COVID-19 Rule-Out 12/25/2021 12/25/2021 12/26/2021 1:48 AM EDT COVID-19 Confirmed 12/25/2021 12/25/2021 2 8:51 PM EDT Summary Purpose Family History No Family History Records FoundNo Family History Records Found Advance Directives No Advanced Directives Records FoundNo Advanced Directives Records Found Reason for Referral Specialty Diagnoses / Procedures Referred By Contac t Referred To Contact Hematology Diagnoses Acute deep vein thrombosis (DVT) of tibial vein of right lower extremity (HCC) Factor V Leiden (HCC) Procedures CONSULT TO HEMATOLOGY OFFICE/OUTPATIENT [facility] MDM [id number] MINUTES Vincent Hinson MD [address] [place] [address] Referral ID Status Reason Start Date Expiration Date Visits Requested Visits Authorized [id number] Authorized PCP Requested Referral 3 03/26/2024 1 1 Additional Source Comments Source Comments (unrecognize d section and content) In the event this informatio n is protected by the Federal Confidentiality of Alcohol and Drug Abuse Patient Records regulations: The Federal rules restrict any use of the information to criminally investigate or prosecute any alcohol or drug abuse patient.[facility] event this information is protected by the Federal Confidentiality of Alcohol and Drug Abuse Patient Records regulations: The Federal rules restrict any use of the information to criminally investigate or prosecute any alcohol or drug abuse patient.[facility] the event this information is protected by the Federal Confidentiality of Alcohol and Drug Abuse Patient Records regulations: The Federal rules restrict any use of the information to criminally investigate or prosecute any alcohol or drug abuse patient.[facility] the event this information is protected by the Federal Confidentiality of Alcohol and Drug Abuse Patient Records regulations: The Federal rules restrict any use of the information to criminally investigate or prosecute any alcohol or drug abuse patient.[facility] the event this information is protected by the Federal Confidentiality of Alcohol and Drug Abuse Patient Records regulations: The Federal rules restrict any use of the information to criminally investigate or prosecute any alcohol or drug abuse patient.[facility] the event this information is protected by the Federal Confidentiality of Alcohol and Drug Abuse Patient Records regulations: The Federal rules restrict any use of the information to criminally investigate or prosecute any alcohol or drug abuse patient.[facility] the event this information is protected by the Federal Confidentiality of Alcohol and Drug Abuse Patient Records regulations: The Federal rules restrict any use of the information to criminally investigate or prosecute any alcohol or drug abuse patient.[facility] the event this information is protected by the Federal Confidentiality of Alcohol and Drug Abuse Patient Records regulations: The Federal rules restrict any use of the information to criminally investigate or prosecute any alcohol or drug abuse patient.[facility] the event this information is protected by the Federal Confidentiality of Alcohol and Drug Abuse Patient Records regulations: The Federal rules restrict any use of the information to criminally investigate or prosecute any alcohol or drug abuse patient.[facility] the event this information is protected by the Federal Confidentiality of Alcohol and Drug Abuse Patient Records regulations: The Federal rules restrict any use of the information to criminally investigate or prosecute any alcohol or drug abuse patient.[facility] the event this information is protected by the Federal Confidentiality of Alcohol and Drug Abuse Patient Records regulations: The Federal rules restrict any use of the information to criminally investigate or prosecute any alcohol or drug abuse patient.[facility] the event this information is protected by the Federal Confidentiality of Alcohol and Drug Abuse Patient Records regulations: The Federal rules restrict any use of the information to criminally investigate or prosecute any alcohol or drug abuse patient.[facility] the event this information is protected by the Federal Confidentiality of Alcohol and Drug Abuse Patient Records regulations: The Federal rules restrict any use of the information to criminally investigate or prosecute any alcohol or drug abuse patient.[facility] the event this information is protected by the Federal Confidentiality of Alcohol and Drug Abuse Patient Records regulations: The Federal rules restrict any use of the information to criminally investigate or prosecute any alcohol or drug abuse patient.[facility]In the event this information is protected by the Federal Confidentiality of Alcohol and Drug Abuse Patient Records regulations: The Federal rules restrict any use of the information to criminally investigate or prosecute any alcohol or drug abuse patient.[facility] HospitalIn the event this information is protected by the Federal Confidentiality of Alcohol and Drug Abuse Patient Records regulations: The Federal rules restrict any use of the information to criminally investigate or prosecute any alcohol or drug abuse patient.[facility]In the event this information is protected by the Federal Confidentiality of Alcohol and Drug Abuse Patient Records regulations: The Federal rules restrict any use of the information to criminally investigate or prosecute any alcohol or drug abuse patient.[facility] HospitalIn the event this information is protected by the Federal Confidentiality of Alcohol and Drug Abuse Patient Records regulations: The Federal rules restrict any use of the information to criminally investigate or prosecute any alcohol or drug abuse patient.[facility] HospitalIn the event this information is protected by the Federal Confidentiality of Alcohol and Drug Abuse Patient Records regulations: The Federal rules restrict any use of the information to criminally investigate or prosecute any alcohol or drug abuse patient.[facility] HospitalIn the event this information is protected by the Federal Confidentiality of Alcohol and Drug Abuse Patient Records regulations: The Federal rules restrict any use of the information to criminally investigate or prosecute any alcohol or drug abuse patient.[facility] HospitalIn the event this information is protected by the Federal Confidentiality of Alcohol and Drug Abuse Patient Records regulations: The Federal rules restrict any use of the information to criminally investigate or prosecute any alcohol or drug abuse patient.[facility]In the event this information is protected by the Federal Confidentiality of Alcohol and Drug Abuse Patient Records regulations: The Federal rules restrict any use of the information to criminally investigate or prosecute any alcohol or drug abuse patient.[facility] HospitalIn the event this information is protected by the Federal Confidentiality of Alcohol and Drug Abuse Patient Records regulations: The Federal rules restrict any use of the information to criminally investigate or prosecute any alcohol or drug abuse patient.[facility]In the event this information is protected by the Federal Confidentiality of Alcohol and Drug Abuse Patient Records regulations: The Federal rules restrict any use of the information to criminally investigate or prosecute any alcohol or drug abuse patient.[facility] HospitalIn the event this information is protected by the Federal Confidentiality of Alcohol and Drug Abuse Patient Records regulations: The Federal rules restrict any use of the information to criminally investigate or prosecute any alcohol or drug abuse patient.[facility] HospitalIn the event this information is protected by the Federal Confidentiality of Alcohol and Drug Abuse Patient Records regulations: The Federal rules restrict any use of the information to criminally investigate or prosecute any alcohol or drug abuse patient.[facility] HospitalIn the event this information is protected by the Federal Confidentiality of Alcohol and Drug Abuse Patient Records regulations: The Federal rules restrict any use of the information to criminally investigate or prosecute any alcohol or drug abuse patient.[facility] HospitalIn the event this information is protected by the Federal Confidentiality of Alcohol and Drug Abuse Patient Records regulations: The Federal rules restrict any use of the information to criminally investigate or prosecute any alcohol or drug abuse patient.[facility] HospitalIn the event this information is protected by the Federal Confidentiality of Alcohol and Drug Abuse Patient Records regulations: The Federal rules restrict any use of the information to criminally investigate or prosecute any alcohol or drug abuse patient.[facility]In the event this information is protected by the Federal Confidentiality of Alcohol and Drug Abuse Patient Records regulations: The Federal rules restrict any use of the information to criminally investigate or prosecute any alcohol or drug abuse patient.[facility] HospitalIn the event this information is protected by the Federal Confidentiality of Alcohol and Drug Abuse Patient Records regulations: The Federal rules restrict any use of the information to criminally investigate or prosecute any alcohol or drug abuse patient.[facility]In the event this information is protected by the Federal Confidentiality of Alcohol and Drug Abuse Patient Records regulations: The Federal rules restrict any use of the information to criminally investigate or prosecute any alcohol or drug abuse patient.[facility] HospitalIn the event this information is protected by the Federal Confidentiality of Alcohol and Drug Abuse Patient Records regulations: The Federal rules restrict any use of the information to criminally investigate or prosecute any alcohol or drug abuse patient.[facility] HospitalIn the event this information is protected by the Federal Confidentiality of Alcohol and Drug Abuse Patient Records regulations: The Federal rules restrict any use of the information to criminally investigate or prosecute any alcohol or drug abuse patient.[facility] HospitalIn the event this information is protected by the Federal Confidentiality of Alcohol and Drug Abuse Patient Records regulations: The Federal rules restrict any use of the information to criminally investigate or prosecute any alcohol or drug abuse patient.[facility]In the event this information is protected by the Federal Confidentiality of Alcohol and Drug Abuse Patient Records regulations: The Federal rules restrict any use of the information to criminally investigate or prosecute any alcohol or drug abuse patient.[facility]In the event this information is protected by the Federal Confidentiality of Alcohol and Drug Abuse Patient Records regulations: The Federal rules restrict any use of the information to criminally investigate or prosecute any alcohol or drug abuse patient.[facility]In the event this information is protected by the Federal Confidentiality of Alcohol and Drug Abuse Patient Records regulations: The Federal rules restrict any use of the information to criminally investigate or prosecute any alcohol or drug abuse patient.[facility]In the event this information is protected by the Federal Confidentiality of Alcohol and Drug Abuse Patient Records regulations: The Federal rules restrict any use of the information to criminally investigate or prosecute any alcohol or drug abuse patient.[facility] HospitalIn the event this information is protected by the Federal Confidentiality of Alcohol and Drug Abuse Patient Records regulations: The Federal rules restrict any use of the information to criminally investigate or prosecute any alcohol or drug abuse patient.[facility] HospitalIn the event this information is protected by the Federal Confidentiality of Alcohol and Drug Abuse Patient Records regulations: The Federal rules restrict any use of the information to criminally investigate or prosecute any alcohol or drug abuse patient.[facility] HospitalIn the event this information is protected by the Federal Confidentiality of Alcohol and Drug Abuse Patient Records regulations: The Federal rules restrict any use of the information to criminally investigate or prosecute any alcohol or drug abuse patient.[facility] HospitalIn the event this information is protected by the Federal Confidentiality of Alcohol and Drug Abuse Patient Records regulations: The Federal rules restrict any use of the information to criminally investigate or prosecute any alcohol or drug abuse patient.[facility] HospitalIn the event this information is protected by the Federal Confidentiality of Alcohol and Drug Abuse Patient Records regulations: The Federal rules restrict any use of the information to criminally investigate or prosecute any alcohol or drug abuse patient.[facility]In the event this information is protected by the Federal Confidentiality of Alcohol and Drug Abuse Patient Records regulations: The Federal rules restrict any use of the information to criminally investigate or prosecute any alcohol or drug abuse patient.[facility] Reason for Visit (unrecogniz ed section and content) Reason Onset Date Comments Refill Request 11/30/2021 Reason Comments Head Congestion sinus issues, cough x 1 week Reason Comments Cough chronic since 03/05 a nd has only gotten worse since COVID in 01/03 Reason Comments Patient Update Reason Comments Leg Cramps Reason Comments Refill Request Reason Comments Results Reason Onset Date Comments Refill Request 03/20/2022 Reason Comments Recheck Following up on bloo d pressure and cough; was seen in [facility] on 03/30 Reason Comments Head Congestion x 3 weeks Reason Comments Cough Deep cough started l ast ; finished atb last week Reason Comments Consult Reason Comments PT Discharge Specialty Diagnoses / Procedures Referred By Jenny rubio Referred To Contact Physical Therapy / PHYSICAL THERAPY 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 per staff msg from Patricia - ok to db son Mike Pierce for same RFV - add on Procedures NEW RS PT ORTHOTIC Terry Dahl [address] [facility] [place] [address] Neal Gomez PT [address] [place] [address] Referral ID Status Reason Start Date Expiration Date V isits Requested Visits Authorized [id number] Authorized 06/15/2022 06/14/2023 99 99 Reason Comments Post Op Swelling Established Patient Follow Up Reason Comments Established Patient Post Op Reason Comments Established Patient Post Op Follow Up Pain Reason Comments Patient Update Reason Comments Results Patient Update Appointment Reason Comments ER F/U 2 small DVT to right lower leg Reason Comments Yearly Exam Reason Comments Edema To right ankle and f oot; had DVT mid December to RL Reason Comments Follow Up Regarding eliquis an d question regarding magnesium if ok to increase. Reason Comments New Patient Evaluation Specialty Diagnoses / Procedures Referred By Jenny rubio Referred To Contact Hematology Diagnoses Acute deep vein thrombosis (DVT) of tibial vein of right lower extremity (HCC) Factor V Leiden (HCC) Procedures CONSULT TO HEMATOLOGY OFFICE/OUTPATIENT NEW HIGH MDM 60-74 MINUTES Vincent Hinson MD [address] [place] [address] Referral ID Status Reason Start Date Expiration Date V isits Requested Visits Authorized [id number] Closed PCP Requested Referral 03/27/2023 03/26/2024 1 1 Reason Comments schedule surgery Care Teams (unrecognized sec tion and content) Supervisor Aircraft Maintenance Relationship Specialty Start Date End Date Vincent Hinson MD [address] [place] [address] PCP - General Family Practice 11/23/20 Supervisor Aircraft Maintenance Relationship Specialty Start Date End Date Vincent Hinson MD [address] [place] [id number] PCP - General Family Practice 11/23/20 Supervisor Aircraft Maintenance Relationship Specialty Start Date End Date Vincent Hinson MD [address] [place] [id number] PCP - General Family Practice 11/23/20 Supervisor Aircraft Maintenance Relationship Specialty Start Date End Date Vincent Hinson MD [facility] [place] [address] PCP - General Family Practice 11/23/20 Supervisor Aircraft Maintenance Relationship Specialty Start Date End Date Vincent Hinson MD [address] [place] [address] [place] [address] PCP - General Family Practice 11/23/20 Supervisor Aircraft Maintenance Relationship Specialty Start Date End Date Vincent Hinson MD [facility] [place] [address] PCP - General Family Practice 11/23/20 Supervisor Aircraft Maintenance Relationship Specialty Start Date End Date Vincent Hinson MD [address] [place] [address] [place] [address] PCP - General Family Practice 11/23/20 Supervisor Aircraft Maintenance Relationship Specialty Start Date End Date Vincent Hinson MD [address] [place] [address] PCP - General Family Medicine 11/23/20 Supervisor Aircraft Maintenance Relationship Specialty Start Date End Date Vincent Hinson MD [address] [place] [address] PCP - General Family Medicine 11/23/20 Supervisor Aircraft Maintenance Relationship Specialty Start Date End Date Vincent Hinson MD [address] [place] [address] PCP - General Family Medicine 11/23/20 Supervisor Aircraft Maintenance Relationship Specialty Start Date End Date Vincent Hinson MD [address] [place] [address] PCP - General Family Medicine 11/23/20 Supervisor Aircraft Maintenance Relationship Specialty Start Date End Date Vincent Hinson MD [address] [place] [address] PCP - General Family Medicine 11/23/20 Supervisor Aircraft Maintenance Relationship Specialty Start Date End Date Vincent Hinson MD [address] [place] [address] PCP - General Family Medicine 11/23/20 Supervisor Aircraft Maintenance Relationship Specialty Start Date End Date Vincent Hinson MD [address] [place] [address] PCP - General Family Medicine 11/23/20 Supervisor Aircraft Maintenance Relationship Specialty Start Date End Date Vincent Hinson MD [address] [place] [address] PCP - General Family Medicine 11/23/20 Supervisor Aircraft Maintenance Relationship Specialty Start Date End Date Vincent Hinson MD [address] [place] [address] PCP - General Family Medicine 11/23/20 Supervisor Aircraft Maintenance Relationship Specialty Start Date End Date Vincent Hinson MD [address] [place] [address] PCP - General Family Medicine 11/23/20 Supervisor Aircraft Maintenance Relationship Specialty Start Date End Date Vincent Hinson MD [address] [place] [address] PCP - General Family Medicine 11/23/20 Supervisor Aircraft Maintenance Relationship Specialty Start Date End Date Vincent Hinson MD [address] [place] [address] PCP - General Family Medicine 11/23/20 Supervisor Aircraft Maintenance Relationship Specialty Start Date End Date Vincent Hinson MD [address] [place] [address] PCP - General Family Medicine 11/23/20 Supervisor Aircraft Maintenance Relationship Specialty Start Date End Date Vincent Hinson MD [address] [place] [address] PCP - General Family Medicine 11/23/20 Supervisor Aircraft Maintenance Relationship Specialty Start Date End Date Vincent Hinson MD [address] [place] [address] PCP - General Family Medicine 11/23/20 Supervisor Aircraft Maintenance Relationship Specialty Start Date End Date Vincent Hinson MD [address] [place] [address] PCP - General Family Medicine 11/23/20 Supervisor Aircraft Maintenance Relationship Specialty Start Date End Date Vincent Hinson MD [address] [place] [address] PCP - General Family Medicine 11/23/20 Supervisor Aircraft Maintenance Relationship Specialty Start Date End Date Vincent Hinson MD [address] [place] [address] PCP - General Family Medicine 11/23/20 Supervisor Aircraft Maintenance Relationship Specialty Start Date End Date Vincent Hinson MD [address] [place] [address] PCP - General Family Medicine 11/23/20 Supervisor Aircraft Maintenance Relationship Specialty Start Date End Date Vincent Hinson MD [address] [place] [address] PCP - General Family Medicine 11/23/20 Supervisor Aircraft Maintenance Relationship Specialty Start Date End Date Vincent Hinson MD [address] [place] [address] PCP - General Family Medicine 11/23/20 Supervisor Aircraft Maintenance Relationship Specialty Start Date End Date Vincent Hinson MD [address] [place] [address] PCP - General Family Medicine 11/23/20 Supervisor Aircraft Maintenance Relationship Specialty Start Date End Date Vincent Hinson MD [address] [place] [address] PCP - General Family Medicine 11/23/20 Supervisor Aircraft Maintenance Relationship Specialty Start Date End Date Vincent Hinson MD [address] [place] [address] PCP - General Family Medicine 11/23/20 Supervisor Aircraft Maintenance Relationship Specialty Start Date End Date Vincent Hinson MD [address] [place] [address] PCP - General Family Medicine 11/23/20 Supervisor Aircraft Maintenance Relationship Specialty Start Date End Date Vincent Hinson MD [address] [place], [place] [address] PCP - General Family Medicine 11/23/20 Supervisor Aircraft Maintenance Relationship Specialty Start Date End Date Vincent Hinson MD [address] [place] [address] PCP - General Family Medicine 11/23/20 INFORMATION SOURCE (unrecogn ized section and content) DATE CREATED AUTHOR AUTHOR'S ORGANIZ ATION 07/04/2023 [facility] FOR RECORDS PERTAINING TO PATIENTS WHO ARE OR HAVE BEEN ENROLLED IN A CHEMICAL DEPENDENCY/SUBSTANCEABUSE PROGRAM, SOME INFORMATION MAY BE OMITTED. This clinical summary was aggregated from multiple sources. Caution should be exercised in using it in the provision of clinical care. This summary normalizes information from multiple sources, and as a consequence, information in this document may materially change the coding, format and clinical context of patient data. In addition, data may be omitted in some cases. CLINICAL DECISIONS SHOULD BE BASED ON THE PRIMARY CLINICAL RECORDS. [email or web address] provides no warranty or guarantee of the accuracy or completeness of information in this document.
[2023-07-10 12:09] LABS: Erythrocyte Sedimentation Rate 1 mm/hr (0-30)
[2023-07-10 12:56] LABS: CRP < 2.90 mg/L (0.0-3.0)
[2023-07-14 01:07] LABS: Beef <0.10 kU/L (Class 0); Chocolate <0.10 kU/L (Class 0); Codfish <0.10 kU/L (Class 0); Corn <0.10 kU/L (Class 0); Egg, Whole <0.10 kU/L (Class 0); Milk (Cow) <0.10 kU/L (Class 0); Mussels <0.10 kU/L (Class 0); Peanut <0.10 kU/L (Class 0); Pork <0.10 kU/L (Class 0); Salmon <0.10 kU/L (Class 0); Shrimp <0.10 kU/L (Class 0); Soybean <0.10 kU/L (Class 0); Tuna <0.10 kU/L (Class 0); Wheat <0.10 kU/L (Class 0)
== END | disposition home or self-care (01) ==
LOC: LAB 11:35
PROVIDERS: PCP Family Medicine; Referring Provider Internal Medicine Gastroenterology; Visit Provider Internal Medicine Gastroenterology
DX: R79.82 Elevated C-reactive protein (CRP) (principal); E16.4 Increased secretion of gastrin; K21.9 Gastro-esophageal reflux disease without esophagitis
CPT/HCPCS: 36415; 85652; 86003; 86005; 86140

== ENCOUNTER → 2024-08-01 | Outpatient (CLI) | payer OTHER, SELFPAY ==
[2024-08-01 16:17] LABS: Absolute Lymphocyte Count 1.89 X10^3/uL (0.83-4.51); Absolute Neutrophil Count 3.8 X10^3/uL (2.0-7.7); Basophil# 0.02 X10^3/uL; Basophil% 0.3 % (0-1); Eosinophil# 0.14 X10^3/uL; Eosinophils% 2.2 % (0-5); Hematocrit 43.8 % (37-47); Hemoglobin 14.6 g/dL (12.0-15.0); Lymphocyte # 1.89 X10^3/ul (0.83-4.51); Lymphocyte % 29.9 % (19-41); Mean Corp Hgb Conc 33.3 g/dL (32-36); Mean Corpuscular Volume 90.1 fL (81-99); Monocyte# 0.47 X10^3/uL; Monocyte% 7.4 % (0-10); NRBC Flagged by Analyzer 0 % (0-5); Neutrophil # 3.78 X10^3/uL (2.7-7.7); Neutrophil % 59.9 % (47-70); Platelet Count 325 K/mm3 (150-450); RBC Distribution Width CV 12.5 % (11.6-14.6); RBC Distribution Width SD 41.1 fl (35.1-43.9); Red Blood Count 4.86 M/mm3 (4.2-5.4); White Blood Count 6.3 K/mm3 (4.4-11.0)
== END | disposition home or self-care (01) ==
LOC: LAB 15:21
PROVIDERS: PCP Family Medicine; Referring Provider Internal Medicine Pulmonary Disease; Visit Provider Internal Medicine Pulmonary Disease
DX: J45.909 Unspecified asthma, uncomplicated (principal)
CPT/HCPCS: 36415; 85025

== ENCOUNTER → 2025-03-17 | Outpatient (CLI) | payer OTHER, SELFPAY ==
--- NOTE | 2025-03-19 17:52 | STRESSREP ---
Stress Test Report Date: 03/17/2025 Procedure: Exercise tolerance test Indications: Paroxysmal SVT, chest discomfort Consent: Per the patient Procedure: The patient exercised on a Colby protocol for 6 minutes achieving a peak heart rate of 151 bpm (88% predicted maximal heart rate) with a peak blood pressure 150/88 mmHg and a peak MET capacity of approximately 7 MET's. The baseline ECG demonstrated normal sinus rhythm. The peak exercise ECG demonstrated sinus tachycardia with no significant ischemic ST-T changes. [There were no cardiac dysrhythmias pretest, during exercise, or recovery]. The functional capacity was considered normal for age. Patient had heaviness in her chest with exertion. The examination was discontinued secondary to dyspnea. Impression: 1. Technically adequate (percent predicted maximal heart rate greater than 85%) exercise tolerance test 2. Stress test is positive for exercise-induced chest pain. 3. Stress test test is negative for exercise-induced EKG changes of ischemia. 4. Functional capacity is normal for age This note was generated with [employer] software. It may contain incorrect words, spelling, and punctuation that were not noted in checking the note before signing.
== END | disposition home or self-care (01) ==
LOC: CVS 10:22
PROVIDERS: PCP Family Medicine; Referring Provider Family Medicine; Visit Provider Family Medicine
DX: I47.10 Supraventricular tachycardia, unspecified (principal); R07.89 Other chest pain
CPT/HCPCS: 93017